=== PATIENT | female | born 1975 | race Caucasian/White ===

== ENCOUNTER 2016-11-15 03:17 | Inpatient (IN) | payer BC ==
[~2016-11-15] VITALS: Ht 154.9 cm; Wt 80.6 kg
[2016-11-15] MEDS ORDERED: SODIUM CHLORIDE 0.9% 1000ML 2,000 ML IV STA (03:30)
[2016-11-15] MEDS ORDERED: ONDANSETRON INJ 2 MG/ML 2 ML VIAL IV STA (03:30)
[2016-11-15 04:03] LABS: BASO % 0.1 %; BASO ABS # 0.01 K/uL (0-0.2); COMPLETE YES; EOS % 0.2 %; HEMATOCRIT 48.9 % (37-47); IG% 0.2 %; LYMPH % 13.7 %; LYMPH ABS # 2.08 K/uL (1.2-3.4); MEAN CELL VOLUME 89.2 fL (80-100); MEAN CORPUSCULAR HEMOGLOBIN 31.2 pg (25-34); MEAN PLATELET VOLUME 10.2 fL (7.4-10.4); MONO % 5.4 %; NEUT % 80.4 %; PLATELET COUNT 324 K/uL (130-400); RED BLOOD COUNT 5.48 M/uL (4.2-5.4); WHITE BLOOD COUNT 15.22 K/uL (4.8-10.8)
--- NOTE | 2016-11-15 04:07 | EMERGENCY ROOM VISIT NOTE ---
History Report prepared by Debra: Courtney Rios Under the Supervision of: Dr. Niurka Dickerson M.D. First contact with patient: 03:25 Chief Complaint: VOMITING Stated Complaint: ABDOMINAL PAIN, VOMITING History of Present Illness The patient is a 41 year old female who presents to the Emergency Room with complaints of intermittent vomiting since late yesterday morning. She notes mid upper abdominal pain that started with her nausea and vomiting. Her pain has worsened, and she rates her current pain as a 9/10 in severity. She describes her pain as sharp and stabbing. The patient has a history of a cholecystectomy and appendectomy. She denies any history of pancreatitis. She denies chest pain or shortness of breath. She did not eat anything unusual. Source of History: patient, spouse/significant other Onset: late yesterday morning Position: abdomen Symptom Intensity: 9/10 Quality: sharp, stabbing Timing: intermittent, worsening Associated Symptoms: + abdominal pain, + nausea, No SOB, No chest pain Review of Systems See HPI for pertinent positives & negatives. A total of 10 systems reviewed and were otherwise negative. Past Medical & Surgical Surgical Problems: (1) History of cholecystectomy (2) Hx of appendectomy Family History No pertinent history stated. Social History Smoking Status: Never Smoker Alcohol Use: none Marital Status: Housing Status: lives with family Occupation Status: employed Current/Historical Medications No Active Prescriptions or Reported Meds Allergies Coded Allergies: Penicillins (Verified Allergy, Unknown, AMOXICILLIN, 11/15/16) Physical Exam Vital Signs Date Time Temp Pulse Resp B/P Pulse Ox O2 Delivery O2 Flow Rate FiO2 11/15/16 05:45 64 18 171/107 99 Room Air 11/15/16 04:44 73 20 176/110 100 Room Air 11/15/16 03:21 36.8 75 20 174/110 98 Room Air Physical Exam Vital signs reviewed. General: Well-appearing 41 year old female, dry heaving. HEENT: No scleral icterus, PERRLA, neck supple. Atraumatic. Cardiovascular: Regular rate and rhythm, no extra sounds. Pulmonary: Clear to auscultation bilaterally, normal work of breathing. Abdomen: Soft, tender to the epigastric region, nondistended, positive bowel sounds. Musculoskeletal: Atraumatic, no peripheral edema. Neurologic: Patient awake alert and oriented x 3, full strength in all 4 extremities. Cranial nerves 2 through 12 grossly intact. Skin: Warm, dry, no rash Medical Decision & Procedures ER Provider Diagnostic Interpretation: Chest x-ray as interpreted by myself is clear with no infiltrate or failure. Abdominal x-ray as interpreted by myself reveals no air-fluid levels or free air. Radiology results as stated below per my review and radiologist interpretation: CT ABDOMEN & PELVIS: Comparison: October 07, 2010. Moderately dilated predominantly right abdominal small bowel loops with air- fluid levels, consistent with the obstructive process. Trace amount of free fluid. No free air or fluid collections. Gallbladder is not visualized. There is mild intrahepatic and extrahepatic duct dilatation. No pancreatitis. Subcentimeter hypodense lesions in the kidneys are stable since prior. Normal caliber abdominal aorta. Diverticulosis without evidence of diverticulitis. The appendix is not definitively seen. No free air or fluid collections. Mildly asymmetrical fullness of the right renal pelvis and right ureter, similar to prior exam and may be secondary to previously visualized right-sided ureterocele, not well seen in absence of delayed phase images. Punctate nonobstructive right renal stones. No evidence of obstructive ureteral or bladder stones on this contrast-enhanced exam. Intrauterine device appears well seated. Small cysts/follicles in the ovaries. Radiologist: Bettie Rojo MD Laboratory Results 11/15/16 03:47 Red Blood Count 5.48, Mean Corpuscular Volume 89.2, Mean Corpuscular Hemoglobin 31.2, Mean Corpuscular Hemoglobin Concent 35.0, Mean Platelet Volume 10.2, Neutrophils (%) (Auto) 80.4, Lymphocytes (%) (Auto) 13.7, Monocytes (%) (Auto) 5.4, Eosinophils (%) (Auto) 0.2, Basophils (%) (Auto) 0.1, Neutrophils # (Auto) 12.25, Lymphocytes # (Auto) 2.08, Monocytes # (Auto) 0.82, Eosinophils # (Auto) 0.03, Basophils # (Auto) 0.01 11/15/16 03:47 Test 11/15/16 03:47 White Blood Count 15.22 K/uL (4.8-10.8) Red Blood Count 5.48 M/uL (4.2-5.4) Hemoglobin 17.1 g/dL (12.0-16.0) Hematocrit 48.9 % (37-47) Mean Corpuscular Volume 89.2 fL (80-100) Mean Corpuscular Hemoglobin 31.2 pg (25-34) Mean Corpuscular Hemoglobin Concent 35.0 g/dl (32-36) Platelet Count 324 K/uL (130-400) Mean Platelet Volume 10.2 fL (7.4-10.4) Neutrophils (%) (Auto) 80.4 % Lymphocytes (%) (Auto) 13.7 % Monocytes (%) (Auto) 5.4 % Eosinophils (%) (Auto) 0.2 % Basophils (%) (Auto) 0.1 % Neutrophils # (Auto) 12.25 K/uL (1.4-6.5) Lymphocytes # (Auto) 2.08 K/uL (1.2-3.4) Monocytes # (Auto) 0.82 K/uL (0.11-0.59) Eosinophils # (Auto) 0.03 K/uL (0-0.5) Basophils # (Auto) 0.01 K/uL (0-0.2) RDW Standard Deviation 43.2 fL (36.4-46.3) RDW Coefficient of Variation 13.1 % (11.5-14.5) Immature Granulocyte % (Auto) 0.2 % Immature Granulocyte # (Auto) 0.03 K/uL (0.00-0.02) Anion Gap 8.0 mmol/L (3-11) Est Creatinine Clear Calc Drug Dose 77.3 ml/min Estimated GFR () 89.1 Estimated GFR (Non- 76.9 BUN/Creatinine Ratio 13.1 (10-20) Calcium Level 9.4 mg/dl (8.5-10.1) Magnesium Level 2.5 mg/dl (1.8-2.4) Total Bilirubin 0.9 mg/dl (0.2-1) Direct Bilirubin 0.2 mg/dl (0-0.2) Aspartate Amino Transf (AST/SGOT) 9 U/L (15-37) Alanine Aminotransferase (ALT/SGPT) 22 U/L (12-78) Alkaline Phosphatase 46 U/L (45-117) Total Protein 8.8 gm/dl (6.4-8.2) Albumin 4.6 gm/dl (3.4-5.0) Lipase 138 U/L (73-393) Laboratory results per my review. Medications Administered Medications (Trade) Dose Ordered Sig/Tank Route Start Time Stop Time Status Last Admin Dose Admin Sodium Chloride (Nss 1000ml) 2,000 ml @ 999 mls/hr Q2H1M STAT IV 11/15/16 03:30 11/15/16 05:30 DC 11/15/16 03:45 999 MLS/HR Ondansetron HCl (Zofran Inj) 4 mg NOW STAT IV 11/15/16 03:30 11/15/16 03:32 DC 11/15/16 03:45 4 MG Hydromorphone HCl (Dilaudid Inj) 1 mg NOW STAT IV 11/15/16 04:35 11/15/16 04:37 DC 11/15/16 04:43 1 MG Hydromorphone HCl (Dilaudid Inj) 1 mg NOW STAT IV 11/15/16 05:46 11/15/16 05:47 DC 11/15/16 06:24 1 MG ED Course 0330: Past medical records reviewed. The patient was evaluated in room B2. A complete history and physical examination was performed. 0330: Zofran 4 mg IV, NSS 2000 ml @ 999 mls/hr IV 0435: Dilaudid 1 mg IV 0448: I reassessed the patient at this time. She has had some improvement with the medications. 0544: I reassessed the patient at this time. She is feeling better and resting comfortably. I discussed the results and treatment plan with the patient. I answered all pertaining questions that she had. She expressed understanding and verbalized agreement. 0545: NSS 1000 ml @ 125 mls/hr IV 0546: Dilaudid 1 mg IV 0557: At this time I spoke with Dr. Garcia. We discussed the patient's case. The patient will be evaluated by the [facility] for further management. 0603: At this time I spoke with Dr. Pritchett of general surgery. We discussed the patient's results and treatment plan. Medical Decision Differential diagnosis: Etiologies such as gastroenteritis, food borne illness, infections, appendicitis , diverticulitis, inflammatory bowel disease, obstruction, GI bleed, biliary pathology, as well as others were entertained. This patient was evaluated and appeared to be in some discomfort. IV access was obtained and laboratory work was drawn. Patient is tender to the epigastric area on physical exam. Abdominal x-ray series is fairly unrevealing to my interpretation. There is no free air or air-fluid. Patient's laboratory work reveals a leukocytosis. She was feeling improved after 2 doses of IV Dilaudid and IV hydration. CT scan abdomen and pelvis was performed and is consistent with SBO. Case was discussed with general surgery, Dr. Pritchett and the hospitalist service, Dr. Roca was consulted. She was admitted for further management. The patient was aware of the plan and agrees. Consults Time Called: 0548 Consulting Physician: Dr. Garcia Returned Call: [phone] At this time I spoke with Dr. Garcia. We discussed the patient's case. The patient will be evaluated by the [facility] for further management. Additional Consults: Time Called: 0583 Consulted Physician: Dr. Pritchett Returned Call: [phone] Additional Comments: At this time I spoke with Dr. Pritchett of general surgery. We discussed the patient's results and treatment plan. Impression Primary Impression: SBO (small bowel obstruction) Scribe Attestation The scribe's documentation has been prepared under my direction and personally reviewed by me in its entirety. I confirm that the note above accurately reflects all work, treatment, procedures, and medical decision making performed by me. Departure Information Dispostion Being Evaluated By Hospitalist Prescriptions No Active Prescriptions or Reported Meds Referrals Vito Ramos M.D. (PCP) Patient Instructions My [facility]
[2016-11-15 04:21] LABS: CREATININE 0.93 mg/dl (0.60-1.20)
[2016-11-15 04:22] LABS: BUN/CREATININE RATIO 13.1 (10-20); CALCIUM 9.4 mg/dl (8.5-10.1); MAGNESIUM 2.5 mg/dl (1.8-2.4); POTASSIUM 3.9 mmol/L (3.5-5.1)
[2016-11-15] MEDS ORDERED: HYDROmorphone INJ 1 MG/ML SYR IV STA ×2 (04:35→05:46)
[2016-11-15] MEDS ORDERED: OPTIRAY 320 IV PRN (04:45)
[2016-11-15] MEDS ORDERED: SODIUM CHLORIDE 0.9% 1000ML 1,000 ML IV STA (05:45)
[2016-11-15] MEDS ORDERED: ONDANSETRON INJ 2 MG/ML 2 ML VIAL IV PRN (06:30)
[2016-11-15] MEDS ORDERED: MoRPHine SULFATE 4 MG/ML 1 ML CARP\\VIAL IV PRN (06:30)
[2016-11-15] MEDS ORDERED: MoRPHine SULFATE 2 MG/ML CARP IV PRN (06:30)
[2016-11-15] MEDS ORDERED: KETOROLAC TROMETHAMINE 30 MG/ML VIAL IV PRN (06:30)
--- NOTE | 2016-11-15 06:54 | History and Physical ---
History & Physical Date & Time of Service: November 15, 2016 at 06:46 Chief Complaint: Abdominal Pain, Vomiting Primary Care Physician: Vito Ramos M.D. History of Present Illness Source: patient, spouse The patient is a 41-year-old female who presents emergency department with complaint of progressively worsening frequency and intensity of abdominal pain and vomiting since early in the morning the day prior to arrival. She has history of an appendectomy and a complicated cholecystectomy which she had bile duct injury and repeat surgery approximately 20 years ago. She reports that she 's had 3 children, and this pain is significantly worse than any of her deliveries. She has no blood in stool or blood in urine. Past Medical/Surgical History Surgical Problems: (1) History of cholecystectomy Status: Resolved (2) Hx of appendectomy Status: Resolved Social History Smoking Status: Never Smoker Smokeless Tobacco Use: No Alcohol Use: none Drug Use: none Marital Status: Housing status: lives with family Occupational Status: employed Immunizations History of Tetanus Vaccine?: UNKNOWN History of Pneumococcal: No History of Hepatitis B Vaccine: Unknown Multi-Drug Resistant Organisms History of MDRO: No Allergies Coded Allergies: Penicillins (Verified Allergy, Unknown, AMOXICILLIN, 11/15/16) Home Medications No Active Prescriptions or Reported Meds Review of Systems Constitutional: No chills, No fatigue, No fever, No problem reported, No sweats , No weakness, No weight loss Eyes: No diplopia, No discharge, No eye pain, No problem reported, No redness, No worsening of vision ENT: No dental problems, No hearing loss, No nasal symptoms, No problem reported, No sore throat, No tinnitus, No trouble swallowing, No unusual epistaxis Respiratory: No cough, No dyspnea at rest, No dyspnea on exertion, No hemoptysis, No problem reported, No shortness of breath, No sputum, No wheezing Cardiovascular: No PND, No chest pain, No claudication, No edema, No orthopnea , No palpitations, No problem reported Abdomen: + nausea, + pain, + vomiting, No GI bleeding, No constipation, No diarrhea Musculoskeletal: No calf pain, No joint pain, No muscle pain, No problem reported, No swelling Genitourinary - Female: No dysmenorrhea, No dysuria, No hematuria, No menorrhagia, No metrorrhagia, No , No problem reported, No rash, No urinary frequency, No urinary incontinence, No urinary retention, No urinary urgency, No vaginal bleeding, No vaginal discharge, No vaginal itching, No vulvodynia Neurologic: No balance problems, No memory loss, No numbness/tingling, No paralysis, No problem reported, No vertigo, No weakness Psychiatric: No anhedonism, No anxiety, No depression symptoms, No insomnia, No problem reported, No substance abuse Endocrine: No excessive thirst, No excessive urination, No fatigue, No problem reported Hematologic / Lymphatic: No abnormal bleeding/bruising, No clotting problems, No night sweats, No problem reported, No swollen lymph nodes Integumentary: No bleeding, No color change, No itch, No new/changing skin lesions, No problem reported, No rash Allergic / Immunologic: No environmental allergies, No food allergies, No frequent infections, No hives, No pet sensitivities, No poor healing, No problem reported, No prolonged convalescence, No seasonal allergies Physical Exam Vital Signs Date Time Temp Pulse Resp B/P Pulse Ox O2 Delivery O2 Flow Rate FiO2 11/15/16 06:30 68 16 180/121 95 Room Air 11/15/16 05:45 64 18 171/107 99 Room Air 11/15/16 04:44 73 20 176/110 100 Room Air 11/15/16 03:21 36.8 75 20 174/110 98 Room Air General Appearance: WD/WN, + mild distress (secondary to abdominal pain) Head: normocephalic, atraumatic Eyes: normal inspection, PERRL, EOMI, sclerae normal ENT: hearing grossly normal, + pertinent finding (mucous membranes very dry) Neck: supple, no adenopathy, thyroid normal, no JVD, no carotid bruits, trachea midline Respiratory/Chest: chest non-tender, lungs clear, normal breath sounds, no respiratory distress, no accessory muscle use Cardiovascular: regular rate, rhythm, no edema, no gallop, no JVD, no murmur, normal peripheral pulses Abdomen/GI: soft, no organomegaly, + tenderness (generalized), + abnormal bowel sounds (decreased bowel sounds) Back: normal inspection, no CVA tenderness, no muscle spasm, normal range of motion Extremities/Musculoskelatal: normal inspection, no calf tenderness, normal capillary refill, no pedal edema, normal range of motion, non-tender 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, no motor/sensory deficits, alert, normal mood/affect, normal reflexes, oriented x 3 Skin: normal color, warm/dry, no rash Lymphatic: no adenopathy Diagnostics Laboratory Results Results Past 24 Hours Test 11/15/16 03:47 11/15/16 06:39 Range/Units White Blood Count 15.22 4.8-10.8 K/uL Red Blood Count 5.48 4.2-5.4 M/uL Hemoglobin 17.1 12.0-16.0 g/dL Hematocrit 48.9 37-47 % Mean Corpuscular Volume 89.2 80-100 fL Mean Corpuscular Hemoglobin 31.2 25-34 pg Mean Corpuscular Hemoglobin Concent 35.0 32-36 g/dl Platelet Count 324 130-400 K/uL Mean Platelet Volume 10.2 7.4-10.4 fL Neutrophils (%) (Auto) 80.4 % Lymphocytes (%) (Auto) 13.7 % Monocytes (%) (Auto) 5.4 % Eosinophils (%) (Auto) 0.2 % Basophils (%) (Auto) 0.1 % Neutrophils # (Auto) 12.25 1.4-6.5 K/uL Lymphocytes # (Auto) 2.08 1.2-3.4 K/uL Monocytes # (Auto) 0.82 0.11-0.59 K/uL Eosinophils # (Auto) 0.03 0-0.5 K/uL Basophils # (Auto) 0.01 0-0.2 K/uL RDW Standard Deviation 43.2 36.4-46.3 fL RDW Coefficient of Variation 13.1 11.5-14.5 % Immature Granulocyte % (Auto) 0.2 % Immature Granulocyte # (Auto) 0.03 0.00-0.02 K/uL Sodium Level 139 136-145 mmol/L Potassium Level 3.9 3.5-5.1 mmol/L Chloride Level 105 98-107 mmol/L Carbon Dioxide Level 26 21-32 mmol/L Anion Gap 8.0 3-11 mmol/L Blood Urea Nitrogen 12 7-18 mg/dl Creatinine 0.93 0.60-1.20 mg/dl Est Creatinine Clear Calc Drug Dose 77.3 ml/min Estimated GFR () 89.1 Estimated GFR (Non- 76.9 BUN/Creatinine Ratio 13.1 10-20 Random Glucose 118 70-99 mg/dl Calcium Level 9.4 8.5-10.1 mg/dl Magnesium Level 2.5 1.8-2.4 mg/dl Total Bilirubin 0.9 0.2-1 mg/dl Direct Bilirubin 0.2 0-0.2 mg/dl Aspartate Amino Transf (AST/SGOT) 9 15-37 U/L Alanine Aminotransferase (ALT/SGPT) 22 12-78 U/L Alkaline Phosphatase 46 45-117 U/L Total Protein 8.8 6.4-8.2 gm/dl Albumin 4.6 3.4-5.0 gm/dl Lipase 138 73-393 U/L Impression Assessment and Plan Small bowel obstruction with intractable abdominal pain--patient admitted to the medical surgical floor. She'll be kept nothing by mouth except ice chips. Will place on normal saline and potassium chloride 20 mEq 100 mils per hour, Protonix 40 mg IV daily, Zofran 4 mg IV every 6 hours when necessary, Toradol 30 mg IV every 6 hours when necessary, Cipro 40 mg IV every 12 hours and Flagyl 500 mg IV every 8 hours. Level of Care Med/Surg Advanced Directives Existing Advance Directive: No Existing Living Will: No Existing Power of Shactor: No Resuscitation Status FULL RESUSCITATION VTE Prophylaxis VTE Risk Assessment Done? Y/N: Yes Risk Level: Moderate Given or contraindicated: SCD's Social Service Consult None Apply
[2016-11-15 07:09] LABS: URINE APPEARANCE CLEAR (CLEAR); URINE BILIRUBIN NEG (NEG); URINE COLOR YELLOW; URINE NITRITE NEG (NEG); URINE PH 6.5 (4.5-7.5); URINE SPECIFIC GRAVITY 1.045 (1.000-1.030); UROBILINOGEN NEG (NEG); ZZUR CULT IF INDIC CLEAN CATCH NO
[2016-11-15 07:14] LABS: MANUAL MICROSCOPIC REQUIRED? NO; REVIEW REQ? NO
--- NOTE | 2016-11-15 07:46 | DIAGNOSTIC IMAGING REPORT ---
ABDOMEN AND PELVIS CT WITH IV CONTRAST CT DOSE: 769.97 mGy.cm HISTORY: epigastric pain, vomiting TECHNIQUE: Multiaxial CT images of the abdomen and pelvis were performed following the use of intravenous contrast. COMPARISON STUDY: Abdomen and pelvis CT 10/07/2010. FINDINGS: Right-sided nephrolithiasis. No hydronephrosis. Stable mild fullness within the mid to distal right ureter with an associated small right ureterocele. Stable subcentimeter bilateral renal hypodense lesions. Therefore, these favor cysts. An intrauterine device appears to be in good position. The ovaries are unremarkable. No bladder wall thickening. The lung bases are clear. The gallbladder appears surgically absent. The liver, pancreas, spleen, and adrenal glands are unremarkable. Colonic diverticulosis. The majority of the colon is decompressed. Multiple distended and fluid-filled loops of small bowel seen within the right side of the abdomen. These measure up to 3.3 cm in diameter. There is mild edema surrounding these loops of small bowel. Mild intra and extra hepatic bile duct dilatation. IMPRESSION: 1. Mildly distended fluid-filled loops of small bowel within the right side the abdomen. The colon is decompressed. Therefore, this is consistent with a small bowel obstruction. There is trace fluid surrounding these loops of bowel. The exact transition point is difficult to define. Although considered less likely the clustered loops of distended bowel at the right side of the abdomen raise the possibility of an internal hernia. Surgical consultation is recommended. 2. Right-sided nephrolithiasis. No change in the fullness within the mid to distal right ureter with associated small right ureterocele. 3. Mild intrahepatic and extrahepatic bile duct dilatation. This may be due to the patient's postcholecystectomy state. This is similar to the prior study. Electronically signed by: Jeremy Braxton M.D. 11/15/2016 7:45 AM Dictated Date/Time: 11/15/2016 7:37 AM
--- NOTE | 2016-11-15 08:09 | DIAGNOSTIC IMAGING REPORT ---
CHEST AND ABDOMEN 2 VIEWS HISTORY: vomiting. Generalized abdominal pain. COMPARISON: Abdomen and pelvis CT 10/07/2010. FINDINGS: The lungs remain clear. The heart is borderline enlarged and may be accentuated by the low lung volumes. No pneumoperitoneum. No pneumatosis. An intrauterine device is seen within the mid pelvis. Relative paucity of small bowel gas which limits evaluation for a small bowel obstruction. No definite dilated loops of small bowel identified at this time. Right-sided nephrolithiasis. IMPRESSION: 1. Right-sided nephrolithiasis. 2. Relative paucity of small bowel gas which limits evaluation for a small bowel obstruction. No definite dilated loops of small bowel identified at this time. Electronically signed by: Jeremy Braxton M.D. 11/15/2016 8:08 AM Dictated Date/Time: 11/15/2016 8:06 AM
[2016-11-15 08:30] VITALS: BP 163/97; PULSE 70; TEMP 36.5; Ht 154.9 cm; Wt 80.6 kg
[2016-11-15] MEDS: METRONIDAZOLE / NSS 500 MG in PREMIXED NSS 100 ML IV SCH ×2 (09:38→17:13)
[2016-11-15] MEDS: NSS + 20MEQ KCL 1000ML 1,000 ML IV SCH ×2 (09:39→19:32)
[2016-11-15] MEDS ORDERED: HydrALAZINE HCL 20 MG/ML VIAL IV. PRN (11:00)
--- NOTE | 2016-11-15 11:01 | Surgery Consultation ---
Consultation Date of Consultation: November 15, 2016. Attending Physician: Roberth Garcia M.D. History of Present Illness pt with a 2 day history of intermittent epigastric pain followed by emesis. repeated about 3-4 times. states she has never had this issue before. did have extensive gallbladder/bile duct surgery in distant past. last bm was yesterday- loose. feeling ok currently. Past Medical/Surgical History Medical Problems: (1) SBO (small bowel obstruction) Status: Acute Social History Smoking Status: Never Smoker Smokeless Tobacco Use: No Alcohol Use: none Drug Use: none Marital Status: Occupation Status: employed Allergies Coded Allergies: Penicillins (Verified Allergy, Unknown, AMOXICILLIN, 11/15/16) Home Medications No Active Prescriptions or Reported Meds Current Inpatient Medications Current Inpatient Medications Medications (Trade) Dose Ordered Sig/Tank Route Start Time Stop Time Status Last Admin Dose Admin Ioversol (Optiray 320) 125 ml UD PRN IV 11/15/16 04:45 11/19/16 04:44 Ondansetron HCl 4 mg 4 mg Q6H PRN IV 11/15/16 06:30 12/15/16 06:29 Acetaminophen 100 ml @ 400 mls/hr Q8H PRN IV 11/15/16 06:30 12/15/16 06:29 Pantoprazole Sodium 40 mg/ Syringe 10 ml @ 5 mls/min DAILY@11 IV 11/15/16 11:00 12/15/16 10:59 Potassium Chloride/Sodium Chloride (Nss + 20meq KCl 1000ml) 1,000 ml @ 100 mls/hr Q10H IV 11/15/16 09:00 12/15/16 06:17 11/15/16 09:39 100 MLS/HR Morphine Sulfate (MoRPHine SULFATE INJ) 2 mg Q2H PRN IV 11/15/16 06:30 11/29/16 06:29 Morphine Sulfate (MoRPHine SULFATE INJ) 4 mg Q2H PRN IV 11/15/16 06:30 11/29/16 06:29 Ketorolac Tromethamine 30 mg 30 mg Q6H PRN IV 11/15/16 06:30 11/20/16 06:29 Ciprofloxacin/ Dextrose 400 mg/ Prmx 200 ml @ 100 mls/hr Q12@1000,2200 IV 11/15/16 10:00 11/25/16 09:59 Metronidazole/Prmx (Flagyl / Nss/ Premixed Nss) 100 ml @ 100 mls/hr Q8H IV 11/15/16 09:00 11/25/16 08:59 11/15/16 09:38 100 MLS/HR Hydralazine HCl (HydrALAZINE INJ) 10 mg Q8 PRN IV. 11/15/16 11:00 12/15/16 10:59 UNV Review of Systems Abdomen: + nausea, + pain, + vomiting Physical Exam Date Time Temp Pulse Resp B/P Pulse Ox O2 Delivery O2 Flow Rate FiO2 11/15/16 08:30 36.5 70 16 163/97 Room Air 11/15/16 08:18 76 18 147/104 97 11/15/16 07:00 73 18 164/112 99 Room Air 11/15/16 06:30 68 16 180/121 95 Room Air 11/15/16 05:45 64 18 171/107 99 Room Air 11/15/16 04:44 73 20 176/110 100 Room Air 11/15/16 03:21 36.8 75 20 174/110 98 Room Air General Appearance: no apparent distress Head: normocephalic, atraumatic Eyes: normal inspection, EOMI ENT: hearing grossly normal Neck: supple, no JVD Respiratory/Chest: no respiratory distress, no accessory muscle use Cardiovascular: regular rate, rhythm Abdomen/GI: soft, + pertinent finding (mild epigastric ttp. minimal distension ) Extremities/Musculoskelatal: no pedal edema Skin: normal color, warm/dry Laboratory Results Last 24 Hours Test 11/15/16 03:47 11/15/16 06:39 White Blood Count 15.22 K/uL Red Blood Count 5.48 M/uL Hemoglobin 17.1 g/dL Hematocrit 48.9 % Mean Corpuscular Volume 89.2 fL Mean Corpuscular Hemoglobin 31.2 pg Mean Corpuscular Hemoglobin Concent 35.0 g/dl Platelet Count 324 K/uL Mean Platelet Volume 10.2 fL Neutrophils (%) (Auto) 80.4 % Lymphocytes (%) (Auto) 13.7 % Monocytes (%) (Auto) 5.4 % Eosinophils (%) (Auto) 0.2 % Basophils (%) (Auto) 0.1 % Neutrophils # (Auto) 12.25 K/uL Lymphocytes # (Auto) 2.08 K/uL Monocytes # (Auto) 0.82 K/uL Eosinophils # (Auto) 0.03 K/uL Basophils # (Auto) 0.01 K/uL RDW Standard Deviation 43.2 fL RDW Coefficient of Variation 13.1 % Immature Granulocyte % (Auto) 0.2 % Immature Granulocyte # (Auto) 0.03 K/uL Sodium Level 139 mmol/L Potassium Level 3.9 mmol/L Chloride Level 105 mmol/L Carbon Dioxide Level 26 mmol/L Anion Gap 8.0 mmol/L Blood Urea Nitrogen 12 mg/dl Creatinine 0.93 mg/dl Est Creatinine Clear Calc Drug Dose 77.3 ml/min Estimated GFR () 89.1 Estimated GFR (Non- 76.9 BUN/Creatinine Ratio 13.1 Random Glucose 118 mg/dl Calcium Level 9.4 mg/dl Magnesium Level 2.5 mg/dl Total Bilirubin 0.9 mg/dl Direct Bilirubin 0.2 mg/dl Aspartate Amino Transf (AST/SGOT) 9 U/L Alanine Aminotransferase (ALT/SGPT) 22 U/L Alkaline Phosphatase 46 U/L Total Protein 8.8 gm/dl Albumin 4.6 gm/dl Lipase 138 U/L Urine Color YELLOW Urine Appearance CLEAR Urine pH 6.5 Urine Specific [place] 1.045 Urine Protein NEG Urine Glucose (UA) NEG Urine Ketones 1+ Urine Occult Blood 1+ Urine Nitrite NEG Urine Bilirubin NEG Urine Urobilinogen NEG Urine Leukocyte Esterase NEG Urine WBC (Auto) 1-5 /hpf Urine RBC (Auto) 0-4 /hpf Urine Hyaline Casts (Auto) 1-5 /lpf Urine Epithelial Cells (Auto) 10-20 /lpf Urine Bacteria (Auto) NEG Assessment & Plan PSBO conservative tx for now. no more n/v so can hold NGT for now IVF repeat xray tomorrow.
[2016-11-15] MEDS: CIPROFLOXACIN / D5W 400 MG in PREMIXED IN D5W 200 ML IV SCH ×2 (11:12→22:18)
[2016-11-15] MEDS: PANTOprazole INJ 40 MG in SYRINGE 0 ML IV SCH (11:13)
[2016-11-15 15:33] VITALS: BP 128/84; PULSE 74; TEMP 37; O2SAT 97
[2016-11-15 18:12] VITALS: O2SAT 97
[2016-11-15 22:55] VITALS: BP 138/90; PULSE 74; TEMP 36.9; O2SAT 95
[2016-11-16] MEDS: METRONIDAZOLE / NSS 500 MG in PREMIXED NSS 100 ML IV SCH ×3 (01:04→16:25)
[2016-11-16] MEDS: NSS + 20MEQ KCL 1000ML 1,000 ML IV SCH ×2 (04:45→14:39)
[2016-11-16] MEDS: ACETAMINOPHEN IV 100 ML IV PRN ×2 (05:24→21:58)
[2016-11-16 06:56] LABS: BASO % 0.2 %; BASO ABS # 0.01 K/uL (0-0.2); COMPLETE YES; EOS % 1.2 %; HEMATOCRIT 38.6 % (37-47); IG% 0.3 %; LYMPH ABS # 2.08 K/uL (1.2-3.4); MEAN CELL VOLUME 90.6 fL (80-100); MEAN CORPUSCULAR HEMOGLOBIN 29.6 pg (25-34); MEAN CORPUSCULAR HGB CONC 32.6 g/dl (32-36); MEAN PLATELET VOLUME 10.1 fL (7.4-10.4); MONO % 6.5 %; NEUT % 59.8 %; PLATELET COUNT 212 K/uL (130-400); RED BLOOD COUNT 4.26 M/uL (4.2-5.4); WHITE BLOOD COUNT 6.51 K/uL (4.8-10.8)
[2016-11-16 07:18] VITALS: BP 121/79; PULSE 65; TEMP 36.9; O2SAT 97
[2016-11-16 07:36] LABS: BUN/CREATININE RATIO 9.9 (10-20); CALCIUM 7.7 mg/dl (8.5-10.1); CREATININE 0.59 mg/dl (0.60-1.20); MAGNESIUM 2.2 mg/dl (1.8-2.4); POTASSIUM 3.5 mmol/L (3.5-5.1)
--- NOTE | 2016-11-16 09:15 | DIAGNOSTIC IMAGING REPORT ---
KUB CLINICAL HISTORY: Small bowel obstruction. COMPARISON STUDY: CT of the abdomen and pelvis November 15, 2016. FINDINGS: An intrauterine device is incidentally noted. Several loops of mildly dilated small bowel within the right mid abdomen are noted. IMPRESSION: Findings suggestive of a persistent small bowel obstruction. No change in mild small bowel dilatation. Electronically signed by: Kobi Beckford M.D. 11/16/2016 9:14 AM Dictated Date/Time: 11/16/2016 9:12 AM
[2016-11-16] MEDS: CIPROFLOXACIN / D5W 400 MG in PREMIXED IN D5W 200 ML IV SCH ×2 (10:15→22:30)
[2016-11-16] MEDS: PANTOprazole INJ 40 MG in SYRINGE 0 ML IV SCH (11:07)
[2016-11-16 15:10] VITALS: BP 131/92; PULSE 81; TEMP 36.8; O2SAT 95
--- NOTE | 2016-11-16 15:48 | Surgery Progress Note ---
Surgery Progress Note Date of Service November 16, 2016. Subjective feeling much better. no pain. no n/v. feels hungry. no bm. +flatus Objective Vital Signs: Date Time Temp Pulse Resp B/P Pulse Ox O2 Delivery O2 Flow Rate FiO2 11/16/16 15:10 36.8 81 18 131/92 95 Room Air 11/16/16 07:45 Room Air 11/16/16 07:18 36.9 65 16 121/79 97 Room Air 11/16/16 00:00 Room Air 11/15/16 22:55 36.9 74 18 138/90 95 Room Air 11/15/16 18:12 97 Room Air General Appearance: no apparent distress Head: normocephalic, atraumatic Neck: supple Respiratory/Chest: no respiratory distress, no accessory muscle use Abdomen: non tender, non distended, soft Extremities: non-tender, normal inspection Laboratory Results: Results Past 24 Hours Test 11/16/16 06:05 Range/Units White Blood Count 6.51 4.8-10.8 K/uL Red Blood Count 4.26 4.2-5.4 M/uL Hemoglobin 12.6 12.0-16.0 g/dL Hematocrit 38.6 37-47 % Mean Corpuscular Volume 90.6 80-100 fL Mean Corpuscular Hemoglobin 29.6 25-34 pg Mean Corpuscular Hemoglobin Concent 32.6 32-36 g/dl Platelet Count 212 130-400 K/uL Mean Platelet Volume 10.1 7.4-10.4 fL Neutrophils (%) (Auto) 59.8 % Lymphocytes (%) (Auto) 32.0 % Monocytes (%) (Auto) 6.5 % Eosinophils (%) (Auto) 1.2 % Basophils (%) (Auto) 0.2 % Neutrophils # (Auto) 3.90 1.4-6.5 K/uL Lymphocytes # (Auto) 2.08 1.2-3.4 K/uL Monocytes # (Auto) 0.42 0.11-0.59 K/uL Eosinophils # (Auto) 0.08 0-0.5 K/uL Basophils # (Auto) 0.01 0-0.2 K/uL RDW Standard Deviation 43.7 36.4-46.3 fL RDW Coefficient of Variation 13.2 11.5-14.5 % Immature Granulocyte % (Auto) 0.3 % Immature Granulocyte # (Auto) 0.02 0.00-0.02 K/uL Sodium Level 140 136-145 mmol/L Potassium Level 3.5 3.5-5.1 mmol/L Chloride Level 108 98-107 mmol/L Carbon Dioxide Level 24 21-32 mmol/L Anion Gap 8.0 3-11 mmol/L Blood Urea Nitrogen 6 7-18 mg/dl Creatinine 0.59 0.60-1.20 mg/dl Est Creatinine Clear Calc Drug Dose 121.9 ml/min Estimated GFR () 132.9 Estimated GFR (Non- 114.6 BUN/Creatinine Ratio 9.9 10-20 Random Glucose 77 70-99 mg/dl Calcium Level 7.7 8.5-10.1 mg/dl Magnesium Level 2.2 1.8-2.4 mg/dl Assessment & Plan pSBO symptoms have completely resolved xray still showing some dilated small bowel will go ahead and give trial of clears wbc down to 6000 ( 15,000)
--- NOTE | 2016-11-16 21:41 | Hospitalist Progress Note ---
Hospitalist Progress Note Date of Service November 16, 2016. Subjective Pt evaluation today including: conversation w/ patient, conversation w/ makeup sales consultant Doing very well, passing flatus, feels hungry, no abdominal pain at all, no nausea or vomiting. Discussed case with general surgery and ready to advance diet to clears All Other Systems: Reviewed and Negative Objective Vital Signs Date Time Temp Pulse Resp B/P Pulse Ox O2 Delivery O2 Flow Rate FiO2 11/16/16 16:15 Room Air 11/16/16 15:10 36.8 81 18 131/92 95 Room Air 11/16/16 07:45 Room Air 11/16/16 07:18 36.9 65 16 121/79 97 Room Air 11/16/16 00:00 Room Air 11/15/16 22:55 36.9 74 18 138/90 95 Room Air Physical Exam General Appearance: WD/WN, no apparent distress Eyes: normal inspection, sclerae normal ENT: hearing grossly normal Neck: trachea midline Respiratory/Chest: lungs clear, normal breath sounds, no respiratory distress, no accessory muscle use Cardiovascular: regular rate, rhythm, no edema, no gallop, no murmur Abdomen: normal bowel sounds, non tender, soft, no organomegaly, no pulsatile mass Extremities: non-tender, no pedal edema, no calf tenderness Neurologic/Psychiatric: alert, normal mood/affect, oriented x 3 Skin: normal color, warm/dry, no rash Laboratory Results Last 24 Hours Test 11/16/16 06:05 White Blood Count 6.51 K/uL Red Blood Count 4.26 M/uL Hemoglobin 12.6 g/dL Hematocrit 38.6 % Mean Corpuscular Volume 90.6 fL Mean Corpuscular Hemoglobin 29.6 pg Mean Corpuscular Hemoglobin Concent 32.6 g/dl Platelet Count 212 K/uL Mean Platelet Volume 10.1 fL Neutrophils (%) (Auto) 59.8 % Lymphocytes (%) (Auto) 32.0 % Monocytes (%) (Auto) 6.5 % Eosinophils (%) (Auto) 1.2 % Basophils (%) (Auto) 0.2 % Neutrophils # (Auto) 3.90 K/uL Lymphocytes # (Auto) 2.08 K/uL Monocytes # (Auto) 0.42 K/uL Eosinophils # (Auto) 0.08 K/uL Basophils # (Auto) 0.01 K/uL RDW Standard Deviation 43.7 fL RDW Coefficient of Variation 13.2 % Immature Granulocyte % (Auto) 0.3 % Immature Granulocyte # (Auto) 0.02 K/uL Sodium Level 140 mmol/L Potassium Level 3.5 mmol/L Chloride Level 108 mmol/L Carbon Dioxide Level 24 mmol/L Anion Gap 8.0 mmol/L Blood Urea Nitrogen 6 mg/dl Creatinine 0.59 mg/dl Est Creatinine Clear Calc Drug Dose 121.9 ml/min Estimated GFR () 132.9 Estimated GFR (Non- 114.6 BUN/Creatinine Ratio 9.9 Random Glucose 77 mg/dl Calcium Level 7.7 mg/dl Magnesium Level 2.2 mg/dl Assessment and Plan The patient is a 41-year-old female who presents with complaint of progressively worsening frequency and intensity of abdominal pain and vomiting prior to arrival. She has history of an appendectomy and a complicated cholecystectomy which she had bile duct injury and repeat surgery approximately 20 years ago. She reports that she's had 3 children, and this pain is significantly worse than any of her deliveries. She has no blood in stool or blood in urine. She was found to have a small bowel obstruction on x-ray. She had a leukocytosis and was placed on Cipro and Flagyl. Much improved today, passing flatus, leukocytosis resolved, afebrile. -Advance diet to clears -Continue Cipro and Flagyl for now -Appreciate general surgery consultation -Repeat KUB in the morning -Can advance diet to regular in the morning if still doing well and plan for discharge Elevated blood pressure-secondary to pain, now much improved Prophylaxis-SCDs Disposition-hopefully to home tomorrow if tolerating regular diet
[2016-11-16 23:18] VITALS: BP 125/81; PULSE 69; TEMP 37; O2SAT 97
[2016-11-17] MEDS: METRONIDAZOLE / NSS 500 MG in PREMIXED NSS 100 ML IV SCH ×2 (00:56→09:29)
[2016-11-17] MEDS: NSS + 20MEQ KCL 1000ML 1,000 ML IV SCH ×2 (00:57→11:10)
[2016-11-17 07:25] LABS: BASO % 0.4 %; BASO ABS # 0.02 K/uL (0-0.2); COMPLETE YES; EOS % 1.4 %; HEMATOCRIT 40.4 % (37-47); IG% 0.2 %; LYMPH % 32.5 %; MEAN CELL VOLUME 89.8 fL (80-100); MEAN CORPUSCULAR HEMOGLOBIN 30.4 pg (25-34); MEAN CORPUSCULAR HGB CONC 33.9 g/dl (32-36); MONO % 8.7 %; NEUT % 56.8 %; PLATELET COUNT 218 K/uL (130-400); WHITE BLOOD COUNT 5.54 K/uL (4.8-10.8)
--- NOTE | 2016-11-17 07:48 | Surgery Progress Note ---
Surgery Progress Note Date of Service November 17, 2016. Subjective + diet (clears), + feeling well, + flatus, No bowel movement, No nausea Objective Vital Signs: Date Time Temp Pulse Resp B/P Pulse Ox O2 Delivery O2 Flow Rate FiO2 11/16/16 23:35 Room Air 11/16/16 23:18 37.0 69 16 125/81 97 Room Air 11/16/16 16:15 Room Air 11/16/16 15:10 36.8 81 18 131/92 95 Room Air Abdomen: non tender, non distended, soft Laboratory Results: Results Past 24 Hours Test 11/17/16 07:01 Range/Units White Blood Count 5.54 4.8-10.8 K/uL Red Blood Count 4.50 4.2-5.4 M/uL Hemoglobin 13.7 12.0-16.0 g/dL Hematocrit 40.4 37-47 % Mean Corpuscular Volume 89.8 80-100 fL Mean Corpuscular Hemoglobin 30.4 25-34 pg Mean Corpuscular Hemoglobin Concent 33.9 32-36 g/dl Platelet Count 218 130-400 K/uL Mean Platelet Volume 10.0 7.4-10.4 fL Neutrophils (%) (Auto) 56.8 % Lymphocytes (%) (Auto) 32.5 % Monocytes (%) (Auto) 8.7 % Eosinophils (%) (Auto) 1.4 % Basophils (%) (Auto) 0.4 % Neutrophils # (Auto) 3.15 1.4-6.5 K/uL Lymphocytes # (Auto) 1.80 1.2-3.4 K/uL Monocytes # (Auto) 0.48 0.11-0.59 K/uL Eosinophils # (Auto) 0.08 0-0.5 K/uL Basophils # (Auto) 0.02 0-0.2 K/uL RDW Standard Deviation 42.7 36.4-46.3 fL RDW Coefficient of Variation 13.1 11.5-14.5 % Immature Granulocyte % (Auto) 0.2 % Immature Granulocyte # (Auto) 0.01 0.00-0.02 K/uL Assessment & Plan PSBO, improving advance to full liquids consider regular diet later or in AM depending on how she does, she is anxious to go home
[2016-11-17 07:55] VITALS: BP 144/87; PULSE 77; TEMP 36.8; O2SAT 95
[2016-11-17 08:06] LABS: BUN/CREATININE RATIO 6.8 (10-20); CALCIUM 8.1 mg/dl (8.5-10.1); CREATININE 0.57 mg/dl (0.60-1.20); MAGNESIUM 2.3 mg/dl (1.8-2.4); POTASSIUM 3.7 mmol/L (3.5-5.1)
--- NOTE | 2016-11-17 09:15 | DIAGNOSTIC IMAGING REPORT ---
KUB CLINICAL HISTORY: Small bowel obstruction COMPARISON STUDY: 11/16/2016 FINDINGS: There is no pathologic bowel dilatation. There is gas present within nondilated colon. An IUD is visualized within the pelvis. A 2.5 mm left mid abdominal calcification is felt to be inferior to the left kidney. There is a 3 mm calcification projected of the lower pole the right kidney. A small calculus cannot be excluded. IMPRESSION: 1. Probable right-sided nephrolithiasis 2. No evidence of pathologic bowel dilatation. Electronically signed by: Toney Peoples M.D. 11/17/2016 9:14 AM Dictated Date/Time: 11/17/2016 9:13 AM
[2016-11-17] MEDS: CIPROFLOXACIN / D5W 400 MG in PREMIXED IN D5W 200 ML IV SCH (09:29)
[2016-11-17] MEDS: PANTOprazole INJ 40 MG in SYRINGE 0 ML IV SCH (11:11)
--- NOTE | 2016-11-17 12:18 | Discharge Instructions ---
Discharge Instructions Date of Service November 17, 2016. Admission Reason for Admission: SBO Discharge Discharge Diagnosis / Problem: Partial small bowel obstruction Discharge Goals Goal(s): Decrease discomfort, Improve function, Diagnostic testing, Therapeutic intervention Activity Recommendations Activity Limitations: resume your previous activity . Instructions / Follow-Up Instructions / Follow-Up You were admitted to the hospital after presenting with abdominal pain, nausea, and vomiting. A CT scan of your abdomen confirmed a small bowel obstruction, likely secondary to adhesions formed from your previous abdominal surgeries. You were initially kept nothing by mouth and treated with IV fluids and supportive care with nausea and pain control. Your symptoms did resolve, and your diet was advanced to a liquid diet, which you tolerated well. You were finally advanced to a regular diet prior to discharge, which you also tolerated well. Prior to discharge, a follow up x-ray showed resolution of the small bowel obstruction and you were able to have a small bowel movement. You are now medically stable for discharge. Medications: *You do not require any new medications on discharge. You may take over the counter medications as needed if you experience diarrhea or constipation. Follow up: *Follow up with your primary care provider in 1 week regarding your hospital stay. Please seek medical attention if you experience fevers, chills, sweats chest pain , shortness of breath, nausea, vomiting, recurrence of abdominal pain, lightheadedness, loss of consciousness, numbness or tingling. Current Hospital Diet Patient's current hospital diet: Regular Diet Discharge Diet Recommended Diet: Regular Diet Pending Studies Studies pending at discharge: no Medical Emergencies . Who to Call and When: Medical Emergencies: If at any time you feel your situation is an emergency, please call 911 immediately. . Non-Emergent Contact Non-Emergency issues call your: Primary Care Provider . Past History Medical & Surgical History: (1) SBO (small bowel obstruction) . "Provider Documentation" section prepared by Simona Baker. . VTE Core Measure Inpt VTE Proph given/why not?: SCD's
[2016-11-17 13:55] VITALS: BP 144/87; PULSE 77; TEMP 36.8; O2SAT 95
--- NOTE | 2016-11-17 14:47 | Discharge Summary ---
Discharge Summary Date of Service November 17, 2016. (Simona Baker PA-C) Discharge Summary Admission Date: November 15, 2016 at 06:18 Discharge Date: November 17, 2016 Discharge Disposition: Home Principal Diagnosis: Partial small bowel obstruction Immunizations: History of Tetanus Vaccine?: UNKNOWN History of Pneumococcal: No History of Hepatitis B Vaccine: Unknown Consultations: General surgery--Dr. Pritchett (Simona Baker PA-C) Medication Reconciliation Medication Profile: No Active Prescriptions or Reported Meds Referrals At Discharge Follow up Referrals: Family Practice Referral - Within 1 Week with Vito Ramos M.D. Discharge Exam Patient reports feeling well. She states that she has not had any nausea or vomiting in 2 days. She denies any abdominal pain. The patient was able to eat a full liquid diet for breakfast without any issues. She had a regular diet for lunch without any issues and is eager to be discharged home. The patient denies fevers, chills, sweats, chest pain, palpitations, claudication, cough, wheezing, shortness of breath, nausea, vomiting, abdominal pain, dysuria , hematuria, urinary retention, paralysis, weakness, numbness and tingling. Review of Systems: Constitutional: No chills, No fever, No sweats Eyes: No diplopia, No eye pain, No worsening of vision ENT: No hearing loss, No sore throat, No trouble swallowing Respiratory: No cough, No shortness of breath, No wheezing Cardiovascular: No chest pain, No claudication, No palpitations Abdomen: No nausea, No pain, No vomiting Musculoskeletal: No calf pain, No joint pain, No muscle pain Genitourinary - Female: No dysuria, No hematuria, No urinary retention Neurologic: No numbness/tingling, No paralysis, No weakness Integumentary: No color change, No itch, No rash Physical Exam: General Appearance: WD/WN, no apparent distress, + obese Eyes: normal inspection, PERRL, EOMI ENT: normal ENT inspection, hearing grossly normal, pharynx normal Neck: supple, no JVD, trachea midline Respiratory/Chest: lungs clear, normal breath sounds, no respiratory distress Cardiovascular: regular rate, rhythm, no gallop, no murmur Abdomen / GI: normal bowel sounds, non tender, soft Extremities: normal inspection, no calf tenderness, no pedal edema Neurologic/Psychiatric: alert, normal mood/affect, oriented x 3 Skin: normal color, warm/dry, no rash (Simona Baker ., PA-C) Hospital Course 41-year-old female with a history of cholecystectomy with complications which resulted in a repeat surgery, and h/o appendectomy presented with persistent abdominal pain nausea and vomiting. CT of abdomen shows small bowel obstruction. Partial small bowel obstruction--resolved -Admitted to med/surg -IVF NSS + 20 mEq at 100 cc/hr -General surgery consulted, appreciate recs: advance diet to full liquid for breakfast. If tolerating can try regular diet later in the day and possible discharge. -Pt tolerated full liquid breakfast and regular diet lunch w/o N/V or pain -D/C cipro and flagyl. Leukocytosis resolved for days, likely was reactive -Repeat KUB 11/17 shows no evidence of pathological dilatation. Elevated blood pressure-secondary to pain, now much improved DVT prophylaxis -SCDs Code Status -Level I, FULL RESUSCITATION STATUS Total Time Spent: Greater than 30 minutes This includes examination of the patient, discharge planning, medication reconciliation, and communication with other providers. (Simona Baker ., PA-C) I agree with PA assessment and plan and have seen and examined pt myself Admitted with SBO TOlerating diet VSS Labs reviewed No N/V/D Stable for discharge home (Matthew Gregory, D.O.) Discharge Instructions Please refer to the electronic Patient Visit Report (Discharge Instructions) for additional information. (Simona Baker ., TYRELL-C) Additional Copies To Vito Ramos M.D.
--- NOTE | 2016-11-17 16:10 | Medical Student: [facility] ---
Med Student Progress Note Date of Service November 17, 2016. Subjective Pt evaluation today including: conversation w/ patient, physical exam, chart review, lab review, review of studies, review of inpatient medication list Pain: Ms. Schuster reported no pain. PO Intake: Tolerating liquid diet, advancing to normal diet Voiding: no voiding problems Ms. Schuster reported no abdominal pain, nausea, or vomiting. One bowel movement AM. Review of Systems Abdomen: No constipation, No diarrhea, No nausea, No pain, No vomiting Objective Vital Signs Date Time Temp Pulse Resp B/P Pulse Ox O2 Delivery O2 Flow Rate FiO2 11/17/16 13:55 36.8 77 16 95 Room Air 11/17/16 07:55 36.8 77 16 144/87 95 Room Air 11/17/16 07:20 Room Air 11/16/16 23:35 Room Air 11/16/16 23:18 37.0 69 16 125/81 97 Room Air 11/16/16 16:15 Room Air Physical Exam General Appearance: WD/WN, no apparent distress Respiratory/Chest: lungs clear, normal breath sounds Cardiovascular: regular rate, rhythm, no edema, no murmur Abdomen: non tender, soft Extremities: no pedal edema Skin: normal color Laboratory Results Last 24 Hours Test 11/17/16 07:01 White Blood Count 5.54 K/uL Red Blood Count 4.50 M/uL Hemoglobin 13.7 g/dL Hematocrit 40.4 % Mean Corpuscular Volume 89.8 fL Mean Corpuscular Hemoglobin 30.4 pg Mean Corpuscular Hemoglobin Concent 33.9 g/dl Platelet Count 218 K/uL Mean Platelet Volume 10.0 fL Neutrophils (%) (Auto) 56.8 % Lymphocytes (%) (Auto) 32.5 % Monocytes (%) (Auto) 8.7 % Eosinophils (%) (Auto) 1.4 % Basophils (%) (Auto) 0.4 % Neutrophils # (Auto) 3.15 K/uL Lymphocytes # (Auto) 1.80 K/uL Monocytes # (Auto) 0.48 K/uL Eosinophils # (Auto) 0.08 K/uL Basophils # (Auto) 0.02 K/uL RDW Standard Deviation 42.7 fL RDW Coefficient of Variation 13.1 % Immature Granulocyte % (Auto) 0.2 % Immature Granulocyte # (Auto) 0.01 K/uL Sodium Level 140 mmol/L Potassium Level 3.7 mmol/L Chloride Level 108 mmol/L Carbon Dioxide Level 24 mmol/L Anion Gap 8.0 mmol/L Blood Urea Nitrogen 4 mg/dl Creatinine 0.57 mg/dl Est Creatinine Clear Calc Drug Dose 126.1 ml/min Estimated GFR () 134.4 Estimated GFR (Non- 116.0 BUN/Creatinine Ratio 6.8 Random Glucose 87 mg/dl Calcium Level 8.1 mg/dl Magnesium Level 2.3 mg/dl Assessment and Plan Assessment and Plan: Ms. Schuster is a 41y/o female admitted on 11/15/16 for abdominal pain, nausea, and vomiting. CT showed small bowel obstruction and lab work revealed leukocytosis. Cipro and flagyl were administered and discharged on 11/17/16. Small bowel obstruction: Improvement- patient passed one bowel movement this morning (11/17/16). Tolerated liquid diet, advanced to regular diet. X-ray shows resolved SBO. Discharge planning: home
== END 2016-11-17 14:10 | disposition home or self-care (01) | DRG 390 ==
LOC: ENRESERVTM → ENRESERVDT → C.EDB 03:19 → C.MSN 06:18
PROVIDERS: ADMIT Hospitalist; ATTEND Hospitalist
DX: K56.60 Unspecified intestinal obstruction (principal); Z88.0 Allergy status to penicillin

== ENCOUNTER 2019-01-26 00:27 | Inpatient (IN) ==
[2019-01-26] MEDS ORDERED: SODIUM CHLORIDE 0.9% 1000ML 1,000 ML IV ONE (00:49)
[2019-01-26] MEDS ORDERED: DiphenhydrAMINE HCL 50 MG/ML VIAL IV STA (00:49)
[2019-01-26] MEDS ORDERED: KETOROLAC TROMETHAMINE 15 MG/ML VIAL IV STA (00:49)
[2019-01-26] MEDS ORDERED: METOCLOPRAMIDE HCL INJ 5 MG/ML 2 ML VIAL IV STA (00:49)
[2019-01-26 01:03] LABS: Appearance Urine Cloudy (Clear); Bacteria Urine Automated Negative (Negative); Basophils # (auto) 0.04 K/uL (0-0.2); Basophils % (auto) 0.5 %; Bilirubin Urine Negative (Negative); Blood Urine 2+ (Negative); Color Urine Yellow; Eosinophils # (auto) 0.03 K/uL (0-0.5); Eosinophils % (auto) 0.4 %; Glucose Urine UA Negative (Negative); Hematocrit (blood only) 42.2 % (37-47); Hemoglobin 14.5 g/dL (12.0-16.0); Immature Granulocytes # (auto) 0.04 K/uL (0.00-0.02); Immature Granulocytes % (auto) 0.5 %; Ketones Urine 1+ (Negative); Leukocyte Esterase Urine Negative (Negative); Lymphocytes # (auto) 2.73 K/uL (1.2-3.4); Mean Corpuscular Hgb Conc 34.4 g/dL (32-36); Mean Corpuscular Volume 88.5 fL (80-100); Monocytes # (auto) 0.75 K/uL (0.11-0.59); Monocytes % (auto) 9.1 %; Neutrophils # (auto) 4.68 K/uL (1.4-6.5); Neutrophils % (auto) 56.5 %; Nitrite Urine Negative (Negative); Platelet Count 203 K/uL (130-400); Protein Urine Negative (Negative); RDW Coefficient of Variation 13.7 % (11.5-14.5); RDW Standard Deviation 44.5 fL (36.4-46.3); Red Blood Count 4.77 M/uL (4.2-5.4); Specific Gravity Urine 1.025 (1.000-1.030); Urobilinogen Urine Negative (Negative); White Blood Count 8.27 K/uL (4.8-10.8); pH Urine 5.5 (4.5-7.5)
--- NOTE | 2019-01-26 01:11 | Emergency Department Note ---
History of Present Illness General Chief complaint: GI Assessment Stated complaint: ILEUS/BOWEL BLOCKAGE W/ VOMITING History of Present Illness Maximum Pain Intensity: 8 This 43-year-old presents to the ER complaining of abdominal pain with nausea and vomiting Location: Upper abdomen Quality: Crampy Severity: Moderate Duration: This afternoon Timing: Started shortly after lunch which was a salad Context: Symptoms got worse and patient came in Modifying factors: better with nothing; worse with palpation Patient had multiple abdominal surgeries. She has a history of bowel obstructions and ileus is. Symptoms feel similar. She had an appendectomy and a cholecystectomy. Patient denies chest pain, dyspnea, cough, congestion, back pain, urinary symptoms. Home Medications Home Medications Medication Instructions Recorded Confirmed Type No Known Home Medications 01/26/19 01/26/19 History Allergies Allergy/AdvReac Type Severity Reaction Status Date / Time Penicillins Allergy Severe AMOXICILLIN-ITCHY Verified 01/26/19 00:56 HIVES Past Med/Surg History Medical History Small bowel obstruction Surgical History History of cholecystectomy (Resolved) Hx of appendectomy (Resolved) Social History Preferred Language: Kinyarwanda Feels Safe at Home: Yes Smoking Status: Never smoker Review of Systems All systems reviewed & are unremarkable except as noted in HPI & below Physical Exam Vital Signs Vital Signs - 24 hr 01/26/19 00:30 01/26/19 01:05 01/26/19 01:15 Temperature 36.6 C Temperature Source Oral Sepsis Recent Fever Within 48 Hours No Sepsis New/Unexplained Change in Mental Status No Sepsis Action Taken by Nursing No Action Required Pulse Rate 90 87 65 Pulse Rate from SpO2 Sensor 88 Respiratory Rate 18 17 20 Blood Pressure 148/103 H Blood Pressure Mean 118 Pulse Oximetry 97 97 98 Oxygen Delivery Method Room Air 01/26/19 01:37 01/26/19 01:38 01/26/19 02:00 Temperature Temperature Source Sepsis Recent Fever Within 48 Hours Sepsis New/Unexplained Change in Mental Status Sepsis Action Taken by Nursing Pulse Rate 72 73 74 Pulse Rate from SpO2 Sensor 72 73 74 Respiratory Rate 21 17 17 Blood Pressure 127/81 119/76 Blood Pressure Mean 96 90 Pulse Oximetry 98 97 97 Oxygen Delivery Method Room Air 01/26/19 02:01 Temperature Temperature Source Sepsis Recent Fever Within 48 Hours Sepsis New/Unexplained Change in Mental Status Sepsis Action Taken by Nursing Pulse Rate 68 Pulse Rate from SpO2 Sensor 70 Respiratory Rate 17 Blood Pressure Blood Pressure Mean Pulse Oximetry 98 Oxygen Delivery Method VITALS: Vitals are noted on the nurse's note and reviewed by myself. Vital signs stable. GENERAL: White female, in no acute distress, nondiaphoretic, well-developed well-nourished. SKIN: The skin was without rashes, erythema, edema, or bruising. There is no tenting of the skin. Capillary reflex less than 2 seconds. HEAD: Normocephalic atraumatic. EARS: External auditory canals clear EYES: Pupils equal round and reactive to light and accommodation. Conjunctivae without injection, sclerae without icterus. Extraocular movements intact. NOSE: Patent, turbinates without inflammation or discharge. MOUTH: Mucous membranes moist. Pharynx without erythema or exudate. Uvula midline. Airway patent. Tongue does not deviate. NECK: Supple without nuchal rigidity. No lymphadenopathy. No thyromegaly. Cervical spine is nontender. No JVD. HEART: Regular rate and rhythm without murmurs gallops or rubs. LUNGS: Clear to auscultation bilaterally without wheezes, rales or rhonchi. No retractions or accessory muscle use. ABDOMEN: Positive bowel sounds x 4. Normal tympanic percussion. Soft, tender to palpation mid upper abdomen, without masses or organomegaly. Reed sign negative. No guarding or rebound tenderness. No CVA tenderness MUSCULOSKELETAL: No muscle atrophy, erythema, or edema noted. NEURO: Patient was alert and oriented to person place and time. Normal sensation to light and sharp touch. No focal neurological deficits. Course Administered Medications Sodium Chloride (Nss 1000ml) 1,000 mls @ 125 mls/hr IV .Q8H BARBARA Stop: 02/25/19 03:14 Last Admin: 01/26/19 03:13 Dose: 125 mls/hr Documented by: [id number] Ioversol (Optiray 320 100ml) 100 ml IV ONCE PRN PRN Reason: Interaction Checking Stop: 01/30/19 01:35 Last Admin: 01/26/19 01:37 Dose: 93 ml Documented by: [id number] Discontinued Medications Diphenhydramine HCl (Benadryl) 25 mg IV NOW STA Stop: 01/26/19 00:50 Last Admin: 01/26/19 01:02 Dose: 25 mg Documented by: [id number] Sodium Chloride (Nss 1000ml) 1,000 mls @ 999 mls/hr IV .Q1H1M ONE Stop: 01/26/19 01:49 Last Infusion: 01/26/19 02:04 Dose: 0 mls/hr Documented by: [id number] Admin: 01/26/19 01:02 Dose: 999 mls/hr Documented by: [id number] Ketorolac Tromethamine (Toradol) 10 mg IV NOW STA Stop: 01/26/19 00:50 Last Admin: 01/26/19 01:02 Dose: 10 mg Documented by: [id number] Metoclopramide HCl (Reglan) 10 mg IV NOW STA Stop: 01/26/19 00:50 Last Admin: 01/26/19 01:02 Dose: 10 mg Documented by: [id number] Medical Decision Making Medical Records Attestation: I reviewed the patient's medical records. Home Medications Current Medication List: was personally reviewed by me Laboratory Data Attestation: I reviewed the patient's lab results. Result diagrams: 01/26/19 00:52 01/26/19 00:52 Lab Results 01/26/19 01/26/19 01/26/19 Range/Units 00:52 00:52 00:52 WBC 8.27 (4.8-10.8) K/uL RBC 4.77 (4.2-5.4) M/uL Hgb 14.5 (12.0-16.0) g/dL Hct 42.2 (37-47) % MCV 88.5 (80-100) fL MCH 30.4 (25-34) pg MCHC 34.4 (32-36) g/dL RDW Std Deviation 44.5 (36.4-46.3) fL RDW Coeff of Lissette 13.7 (11.5-14.5) % Plt Count 203 (130-400) K/uL MPV 10.0 (7.4-10.4) fL Immature Gran % (Auto) 0.5 % Neut % (Auto) 56.5 % Lymph % (Auto) 33.0 % [place] % (Auto) 9.1 % Eos % (Auto) 0.4 % Baso % (Auto) 0.5 % Immature Gran # (Auto) 0.04 H (0.00-0.02) K/uL Neut # (Auto) 4.68 (1.4-6.5) K/uL Lymph # (Auto) 2.73 (1.2-3.4) K/uL [place] # (Auto) 0.75 H (0.11-0.59) K/uL Eos # (Auto) 0.03 (0-0.5) K/uL Baso # (Auto) 0.04 (0-0.2) K/uL Sodium 139 (136-145) mmol/L Potassium 3.5 (3.5-5.1) mmol/L Chloride 104 (98-107) mmol/L Carbon Dioxide 29 (21-32) mmol/L Anion Gap 6.0 (3-11) BUN 14 (7-18) mg/dl Creatinine 0.82 (0.6-1.2) mg/dl Est Cr Clr Drug Dosing 82.3 ml/min Est GFR ( Amer) 102.3 Est GFR (Non-Af Amer) 88.3 BUN/Creatinine Ratio 16.6 (10-20) Glucose 101 H (70-99) mg/dl Calcium 8.9 (8.5-10.1) mg/dl Magnesium 2.4 (1.8-2.4) mg/dl Total Bilirubin 1.0 (0.2-1) mg/dl AST 26 (15-37) U/L ALT 54 (12-78) U/L Alkaline Phosphatase 46 (45-117) U/L Total Protein 8.1 (6.4-8.2) gm/dl Albumin 4.0 (3.4-5.0) gm/dl Globulin 4.1 H (2.5-4.0) gm/dl Albumin/Globulin Ratio 1.0 (0.9-2) Lipase 138 (73-393) U/L HCG, Qual Negative (Negative) Urine Color Urine Appearance (Clear) Urine pH (4.5-7.5) Ur Specific [place] (1.000-1.030) Urine Protein (Negative) Urine Glucose (UA) (Negative) Urine Ketones (Negative) Urine Blood (Negative) Urine Nitrite (Negative) Urine Bilirubin (Negative) Urine Urobilinogen (Negative) Ur Leukocyte Esterase (Negative) Urine WBC (Auto) (0-5) /hpf Urine RBC (Auto) (0-4) /hpf U Hyaline Cast (Auto) (0-5) /lpf U Epithel Cells (Auto) (0-5) /lpf Urine Bacteria (Auto) (Negative) 01/26/19 Range/Units 00:52 WBC (4.8-10.8) K/uL RBC (4.2-5.4) M/uL Hgb (12.0-16.0) g/dL Hct (37-47) % MCV (80-100) fL MCH (25-34) pg MCHC (32-36) g/dL RDW Std Deviation (36.4-46.3) fL RDW Coeff of Lissette (11.5-14.5) % Plt Count (130-400) K/uL MPV (7.4-10.4) fL Immature Gran % (Auto) % Neut % (Auto) % Lymph % (Auto) % [place] % (Auto) % Eos % (Auto) % Baso % (Auto) % Immature Gran # (Auto) (0.00-0.02) K/uL Neut # (Auto) (1.4-6.5) K/uL Lymph # (Auto) (1.2-3.4) K/uL [place] # (Auto) (0.11-0.59) K/uL Eos # (Auto) (0-0.5) K/uL Baso # (Auto) (0-0.2) K/uL Sodium (136-145) mmol/L Potassium (3.5-5.1) mmol/L Chloride (98-107) mmol/L Carbon Dioxide (21-32) mmol/L Anion Gap (3-11) BUN (7-18) mg/dl Creatinine (0.6-1.2) mg/dl Est Cr Clr Drug Dosing ml/min Est GFR ( Amer) Est GFR (Non-Af Amer) BUN/Creatinine Ratio (10-20) Glucose (70-99) mg/dl Calcium (8.5-10.1) mg/dl Magnesium (1.8-2.4) mg/dl Total Bilirubin (0.2-1) mg/dl AST (15-37) U/L ALT (12-78) U/L Alkaline Phosphatase (45-117) U/L Total Protein (6.4-8.2) gm/dl Albumin (3.4-5.0) gm/dl Globulin (2.5-4.0) gm/dl Albumin/Globulin Ratio (0.9-2) Lipase (73-393) U/L HCG, Qual (Negative) Urine Color Yellow Urine Appearance Cloudy A (Clear) Urine pH 5.5 (4.5-7.5) Ur Specific [place] 1.025 (1.000-1.030) Urine Protein Negative (Negative) Urine Glucose (UA) Negative (Negative) Urine Ketones 1+ H (Negative) Urine Blood 2+ H (Negative) Urine Nitrite Negative (Negative) Urine Bilirubin Negative (Negative) Urine Urobilinogen Negative (Negative) Ur Leukocyte Esterase Negative (Negative) Urine WBC (Auto) 1-5 (0-5) /hpf Urine RBC (Auto) 5-10 H (0-4) /hpf U Hyaline Cast (Auto) 1-5 (0-5) /lpf U Epithel Cells (Auto) 10-20 H (0-5) /lpf Urine Bacteria (Auto) Negative (Negative) Imaging Data Attestation: I personally reviewed and interpreted this imaging study as follows: MDM Narrative Prior records/ancillary studies reviewed. Triage Nursing notes reviewed. Additional history obtained from family. The patient's history was concerning for abdominal pain. Differential diagnosis: Etiologies such as appendicitis, diverticulitis, PUD, biliary pathology, UTI, pancreatitis, obstruction, mesenteric ischemia, aortic pathology, infections, inflammatory bowel disease, renal colic, as well as others were entertained. Physical examination findings: As above. ER treatment provided: Reglan, Benadryl, Toradol, IV fluids On reassessment the patient felt better. Diagnostics interpreted by me: The labs revealed no leukocytosis. Stable H&H. Stable creatinine. Negative hCG. Negative urine Imaging studies: CT ABDOMEN & PELVIS With Contrast: Multiple dilated fluid-filled loops of small bowel, raising concern for a mid to distal level small bowel obstruction. IUD in place. No definite adnexal masses. No free fluid. [id number] right hydroureteronephrosis. A radiopaque obstructing calculus is not clearly seen distally. Splenomegaly. Radiologist: Chad Gamboa M.D. Consultation: A consultation was placed with Dr. Vale. The case was discussed and diagnostics were reviewed. The patient was evaluated in the ER for further treatment. Exam and history seem consistent with bowel obstruction with possible kidney stone. Patient was placed n.p.o. Medicine was consulted. Patient is agreeable to treatment plan of admission. She has a history of bowel obstructions. By the evaluation outlined above emergent etiologies such as appendicitis, diverticulitis, PUD, biliary pathology, UTI, pancreatitis, mesenteric ischemia, aortic pathology, infections, inflammatory bowel disease, as well as others were deemed relatively unlikely. The pt informed about the findings as listed above. All questions were answered and pleased with the treatment. Case reviewed with my attending The chart was completed utilizing [employer] ([employer]) Speech voice recognition software. Grammatical errors, random word insertions, pronoun errors, and incomplete sentences are an occassional consequence of this system due to software limitations, ambient noise, and hardware issues. Any formal questions or concerns about the content, text, or information contained within the body of this dictation should be directly addressed to the physician senior assistant manager for clarification. Impression & Plan Small bowel obstruction Discharge Plan Visit Data Chief Complaint: GI Assessment Stated Complaint: ILEUS/BOWEL BLOCKAGE W/ VOMITING ED Provider: Ifrah Stoner ED Midlevel Provider: Kendra Miranda Discharge Problem: Small bowel obstruction Patient Disposition: Being Evaluated by Hospitalist Condition: Good Forms Stand Alone Forms: My [employer] Prescriptions Prescriptions: No Action No Known Home Medications RF: 0 Referrals Referrals: Elroy Borja [Primary Care Provider] -
[2019-01-26 01:20] LABS: BUN Creatinine Ratio 16.6 (10-20); Calcium 8.9 mg/dl (8.5-10.1); Creatinine Clr Calc Pharmacy 82.3 ml/min; Est GFR (African American) 102.3; Est GFR (Non-African American) 88.3; Magnesium 2.4 mg/dl (1.8-2.4); Potassium 3.5 mmol/L (3.5-5.1)
[2019-01-26 01:22] LABS: Pregnancy Test, Serum Negative (Negative)
[2019-01-26 01:23] LABS: Globulin 4.1 gm/dl (2.5-4.0); Total Protein 8.1 gm/dl (6.4-8.2)
[2019-01-26] MEDS ORDERED: IOVERSOL 100ml IV PRN (01:36)
[2019-01-26] MEDS ORDERED: SODIUM CHLORIDE 0.9% 1000ML 1,000 ML IV SCH ×2 (03:15→05:06)
--- NOTE | 2019-01-26 04:06 | History & Physical Report ---
Date of Service January 26, 2019 Assessment & Plan (1) Small bowel obstruction: This is a 43-year-old female who states she was in her usual state of health earlier today. She had gone to work, participated in her exercise activities. She states that at lunchtime she prepared herself salad ate it without any issues but shortly thereafter developed acute epigastric abdominal pain. She also developed nonbloody emesis. She states she had 2 bowel movements this morning. She states she has a history of small bowel obstructions and indeed upon review of records she has had one 1 year ago. She has a history of appendectomy and cholecystectomy. She does not follow with a general surgeon or founder. She does not take any medications. In the ED, CT abdomen pelvis was concerning for small bowel obstruction. It also showed a right mild to moderate hydroureteronephrosis. She is given 10 mg of IV Toradol as well as an antiemetic and fluids with good effect. Her labs are otherwise unremarkable, she has no kidney injury. She has remained afebrile and vitals have been stable. Abdominal pain likely secondary to small bowel obstruction versus ileus -10 mg of IV Toradol and antiemetic in the ED with good effect -[facility] -IV hydration -IV Zofran as needed, IV morphine PRN -Consult general surgery -N.p.o., advance as tolerated -No clear indication for NG tube placement at this point. Will defer. FEN/GI: NPO. NSS @ 100ml/hr. DVT ppx: SCDs. To see Gen Surg, will hold off on chemical anticoag at this point. CODE STATUS: FULL as d/w pt. DISPO: Med/surg (2) History of cholecystectomy: (3) Hx of appendectomy: (4) Hydroureteronephrosis: History of Present Illness Chief Complaint: Abdominal pain, emesis, history of small bowel obstruction and ileus. Primary Care Provider: Elroy Borja This is a 43-year-old female who states she was in her usual state of health earlier today. She had gone to work, participated in her exercise activities. She states that at lunchtime she prepared herself salad ate it without any issues but shortly thereafter developed acute epigastric abdominal pain. She also developed nonbloody emesis. She states she had 2 bowel movements this morning. She states she has a history of small bowel obstructions and indeed upon review of records she has had one 1 year ago. She has a history of appendectomy and cholecystectomy. She does not follow with a general surgeon or founder. She does not take any medications. In the ED, CT abdomen pelvis was concerning for small bowel obstruction. It also showed a right mild to moderate hydroureteronephrosis. She is given 10 mg of IV Toradol as well as an antiemetic and fluids with good effect. Her labs are otherwise unremarkable, she has no kidney injury. She has remained afebrile and vitals have been stable. Allergies Allergy/AdvReac Type Severity Reaction Status Date / Time Penicillins Allergy Severe AMOXICILLIN-ITCHY Verified 01/26/19 00:56 HIVES Home Medications Home Medications Medication Instructions Recorded Confirmed Type No Known Home Medications 01/26/19 01/26/19 History Past Med/Surg History Medical History Kidney cysts Kidney stones Pulmonary embolism Small bowel obstruction Surgical History History of cholecystectomy (Resolved) Hx of appendectomy (Resolved) Social History Preferred Language: Tuvaluan Communication Ability: Effective Head Esthetician Required: No Beliefs That Will Affect Care: None Current Living Situation: Spouse Other Information That Helps Us Care for You: No Feels Safe at Home: Yes Safety Concerns: Feels Safe At This Time Smoking Status: Former smoker Hx Alcohol Use: No Hx Substance Use: No Review of Systems Review of Systems: All systems reviewed & are unremarkable except as noted in HPI & below Physical Exam Physical Exam: Vitals noted and within normal limits GENERAL: Awake, alert to person, place, and time, nontoxic-appearing, in no distress. HENT: Normocephalic, atraumatic. . Mucus membranes appear moist. EYES: Normal conjunctiva. Sclera non-icteric. EOMI. NECK: Supple. Full range of motion. No JVD. RESPIRATORY: Clear to auscultation. Normal work of breathing. CARDIAC: Regular rate, normal rhythm. Extremities warm and well perfused, 2+ radial pulses bilaterally; 2+ posterior tibialis pulses bilaterally. ABDOMEN: Soft, non-distended. No tenderness to palpation in all four quadrants. No rebound or guarding. No masses. Bowel sounds are + hypoactive in the LLQ, hyperactive in the LUQ. LOWER EXTREMITIES: Inspection of calves reveal equal size bilaterally. They are non-tender. No edema. No discoloration. NEURO: No gross focal motor deficits noted. Sensation in tact. CN II-XII grossly in tact. . SKIN: Rash not present. No jaundice noted. Significant lesions not present. PSYCH: Appropriate mood and affect. Cooperative. Exam as done by Sparkle Hirsch MD, Electrocardiogram Technician. Results & Data Vital Signs (Past 12 Hours) Vital Signs Temp Pulse Resp BP Pulse Ox 01/26/19 03:30 77 19 01/26/19 03:01 71 18 96 01/26/19 03:00 73 21 107/73 97 01/26/19 02:30 68 15 97 01/26/19 02:01 68 17 98 01/26/19 02:00 74 17 119/76 97 01/26/19 01:38 73 17 97 01/26/19 01:37 72 21 127/81 98 01/26/19 01:15 65 20 98 01/26/19 01:05 87 17 97 01/26/19 00:30 36.6 C 90 18 148/103 H 97 Laboratory Results 01/26/19 01/26/19 01/26/19 Range/Units 00:52 00:52 00:52 WBC (4.8-10.8) K/uL RBC (4.2-5.4) M/uL Hgb (12.0-16.0) g/dL Hct (37-47) % MCV (80-100) fL MCH (25-34) pg MCHC (32-36) g/dL RDW Std Deviation (36.4-46.3) fL RDW Coeff of Lissette (11.5-14.5) % Plt Count (130-400) K/uL MPV (7.4-10.4) fL Immature Gran % (Auto) % Neut % (Auto) % Lymph % (Auto) % [place] % (Auto) % Eos % (Auto) % Baso % (Auto) % Immature Gran # (Auto) (0.00-0.02) K/uL Neut # (Auto) (1.4-6.5) K/uL Lymph # (Auto) (1.2-3.4) K/uL [place] # (Auto) (0.11-0.59) K/uL Eos # (Auto) (0-0.5) K/uL Baso # (Auto) (0-0.2) K/uL Sodium 139 (136-145) mmol/L Potassium 3.5 (3.5-5.1) mmol/L Chloride 104 (98-107) mmol/L Carbon Dioxide 29 (21-32) mmol/L Anion Gap 6.0 (3-11) BUN 14 (7-18) mg/dl Creatinine 0.82 (0.6-1.2) mg/dl Est Cr Clr Drug Dosing 82.3 ml/min Est GFR ( Amer) 102.3 Est GFR (Non-Af Amer) 88.3 BUN/Creatinine Ratio 16.6 (10-20) Glucose 101 H (70-99) mg/dl Calcium 8.9 (8.5-10.1) mg/dl Magnesium 2.4 (1.8-2.4) mg/dl Total Bilirubin 1.0 (0.2-1) mg/dl AST 26 (15-37) U/L ALT 54 (12-78) U/L Alkaline Phosphatase 46 (45-117) U/L Total Protein 8.1 (6.4-8.2) gm/dl Albumin 4.0 (3.4-5.0) gm/dl Globulin 4.1 H (2.5-4.0) gm/dl Albumin/Globulin Ratio 1.0 (0.9-2) Lipase 138 (73-393) U/L HCG, Qual Negative (Negative) Urine Color Yellow Urine Appearance Cloudy A (Clear) Urine pH 5.5 (4.5-7.5) Ur Specific [place] 1.025 (1.000-1.030) Urine Protein Negative (Negative) Urine Glucose (UA) Negative (Negative) Urine Ketones 1+ H (Negative) Urine Blood 2+ H (Negative) Urine Nitrite Negative (Negative) Urine Bilirubin Negative (Negative) Urine Urobilinogen Negative (Negative) Ur Leukocyte Esterase Negative (Negative) Urine WBC (Auto) 1-5 (0-5) /hpf Urine RBC (Auto) 5-10 H (0-4) /hpf U Hyaline Cast (Auto) 1-5 (0-5) /lpf U Epithel Cells (Auto) 10-20 H (0-5) /lpf Urine Bacteria (Auto) Negative (Negative) 01/26/19 Range/Units 00:52 WBC 8.27 (4.8-10.8) K/uL RBC 4.77 (4.2-5.4) M/uL Hgb 14.5 (12.0-16.0) g/dL Hct 42.2 (37-47) % MCV 88.5 (80-100) fL MCH 30.4 (25-34) pg MCHC 34.4 (32-36) g/dL RDW Std Deviation 44.5 (36.4-46.3) fL RDW Coeff of Lissette 13.7 (11.5-14.5) % Plt Count 203 (130-400) K/uL MPV 10.0 (7.4-10.4) fL Immature Gran % (Auto) 0.5 % Neut % (Auto) 56.5 % Lymph % (Auto) 33.0 % [place] % (Auto) 9.1 % Eos % (Auto) 0.4 % Baso % (Auto) 0.5 % Immature Gran # (Auto) 0.04 H (0.00-0.02) K/uL Neut # (Auto) 4.68 (1.4-6.5) K/uL Lymph # (Auto) 2.73 (1.2-3.4) K/uL [place] # (Auto) 0.75 H (0.11-0.59) K/uL Eos # (Auto) 0.03 (0-0.5) K/uL Baso # (Auto) 0.04 (0-0.2) K/uL Sodium (136-145) mmol/L Potassium (3.5-5.1) mmol/L Chloride (98-107) mmol/L Carbon Dioxide (21-32) mmol/L Anion Gap (3-11) BUN (7-18) mg/dl Creatinine (0.6-1.2) mg/dl Est Cr Clr Drug Dosing ml/min Est GFR ( Amer) Est GFR (Non-Af Amer) BUN/Creatinine Ratio (10-20) Glucose (70-99) mg/dl Calcium (8.5-10.1) mg/dl Magnesium (1.8-2.4) mg/dl Total Bilirubin (0.2-1) mg/dl AST (15-37) U/L ALT (12-78) U/L Alkaline Phosphatase (45-117) U/L Total Protein (6.4-8.2) gm/dl Albumin (3.4-5.0) gm/dl Globulin (2.5-4.0) gm/dl Albumin/Globulin Ratio (0.9-2) Lipase (73-393) U/L HCG, Qual (Negative) Urine Color Urine Appearance (Clear) Urine pH (4.5-7.5) Ur Specific [place] (1.000-1.030) Urine Protein (Negative) Urine Glucose (UA) (Negative) Urine Ketones (Negative) Urine Blood (Negative) Urine Nitrite (Negative) Urine Bilirubin (Negative) Urine Urobilinogen (Negative) Ur Leukocyte Esterase (Negative) Urine WBC (Auto) (0-5) /hpf Urine RBC (Auto) (0-4) /hpf U Hyaline Cast (Auto) (0-5) /lpf U Epithel Cells (Auto) (0-5) /lpf Urine Bacteria (Auto) (Negative) Supervising Physician Co-Signing Physician Notes Attending addendum: I have physically seen this patient, have supervised the medical residents nisa bolden, and agree with the H&P unless as otherwise noted. Assessment and Plan: Partial small bowel obstruction versus ileus/history of previous SBO's- Admit to MedSurg. IV fluids. NPO Zofran 4 mg IV every 6 hours PRN. Acetaminophen 1 g IV every 8 hours PRN mild pain or temperature. Morphine sulfate IV as needed severe pain. Famotidine 20 mg IV every 12 hours. Consult general surgery. Remainder of orders and notations as noted. PG Care Time/CCT Total # of Minutes Spent Total Time Spent with Patient: Total time spent is greater than 50% in coordination of care (as documented) at patient's floor/unit and/or counseling patient: Resident Activity Tracking Resident Involvement: Resident Care Provided Care Provided: Adult Hospital Medicine
[2019-01-26] MEDS ORDERED: ACETAMINOPHEN 1000 MG/100 ML IV IV PRN (05:06)
[2019-01-26] MEDS ORDERED: MoRPHine SULFATE 2 MG/ML CARP IV PRN (05:06)
[2019-01-26] MEDS ORDERED: ONDANSETRON INJ 2 MG/ML 2 ML VIAL IV PRN (05:06)
--- NOTE | 2019-01-26 07:23 | CT Scan Report ---
ABDOMEN AND PELVIS CT WITH IV CONTRAST CT DOSE: 528.21 mGy.cm HISTORY: mid abd pain, hx SBO TECHNIQUE: Multiaxial CT images of the abdomen and pelvis were performed following the use of intrave nous contrast. A dose lowering technique was utilized adhering to the principles of ALARA. COMPARISON STUDY: Abdomen and pelvis CT 12/15/2017. FINDINGS: The lung bases are clear. No pneumoperitoneum. No pneumatosis. No suspicious lytic or blast ic osseous lesions. The spleen is top normal in size measuring 12.1 cm in length. No hepatic or splen ic masses. The adrenal glands and pancreas are unremarkable. The gallbladder is not identified and li sil surgically absent. A few small hypodense lesions within the kidneys. These are technically too s mall to characterize but favor cysts. Right-sided nephrolithiasis. Mild right hydronephrosis to the l evel of the ureterovesical junction. However, no obstructing stones identified. Normal bladder. No le ft-sided hydronephrosis. No retroperitoneal lymphadenopathy. An intrauterine device is noted. The int rauterine device appears low lying but remains in the endometrial cavity. Fluid-filled small and larg e bowel. Mild dilated loops of proximal to mid small bowel are noted. The distal ileal loops are deco mpressed. Therefore, this is consistent with a small bowel obstruction. The transition point is likel y within the deep pelvis/right lower quadrant. IMPRESSION: 1. Multiple dilated fluid-filled loops of proximal to mid small bowel. An exact transition point is n ot clearly identified but is likely located within the right lower quadrant at the distal small bowel . Therefore, this favors a developing small bowel obstruction. 2. Mild right hydroureteronephrosis to the level of the ureterovesical junction. No ureteral calculi identified. 3. An intrauterine device is within the endometrial cavity but is low-lying. 4. Right-sided nephrolithiasis. 5. Additional findings as described above. Electronically signed by: Jeremy Braxton M.D. 01/26/2019 7:21 AM
--- NOTE | 2019-01-26 08:05 | Family Medicine Progress Note ---
Date of Service January 26, 2019 Assessment & Plan (1) Small bowel obstruction: This is a 43-year-old female who states she was in her usual state of health earlier today. She had gone to work, participated in her exercise activities. She states that at lunchtime she prepared herself salad ate it without any issues but shortly thereafter developed acute epigastric abdominal pain. She also developed nonbloody emesis. She states she had 2 bowel movements this morning. She states she has a history of small bowel obstructions and indeed upon review of records she has had one 1 year ago. She has a history of appendectomy and cholecystectomy. She does not follow with a general surgeon or medical service representative. She does not take any medications. In the ED, CT abdomen pelvis was concerning for small bowel obstruction. It also showed a right mild to moderate hydroureteronephrosis. She is given 10 mg of IV Toradol as well as an antiemetic and fluids with good effect. Her labs are otherwise unremarkable, she has no kidney injury. She has remained afebrile and vitals have been stable. Abdominal pain likely secondary to small bowel obstruction versus ileus -10 mg of IV Toradol and antiemetic in the ED with good effect -We will admit to [facility] for further management -IV hydration -IV Zofran as needed, IV morphine PRN -Consult general surgery -N.p.o., advance as tolerated -No clear indication for NG tube placement at this point. Will defer. FEN/GI: NPO. NSS @ 100ml/hr. DVT ppx: SCDs. To see Gen Surg, will hold off on chemical anticoag at this point. CODE STATUS: FULL as d/w pt. DISPO: Med/surg Results & Data Vital Signs (Past 12 Hours) Vital Signs Temp Pulse Pulse Resp BP BP Pulse Ox 01/26/19 05:16 36.7 C 74 16 114/78 96 01/26/19 03:30 77 19 01/26/19 03:01 71 18 96 01/26/19 03:00 73 21 107/73 97 01/26/19 02:30 68 15 97 01/26/19 02:01 68 17 98 01/26/19 02:00 74 17 119/76 97 01/26/19 01:38 73 17 97 01/26/19 01:37 72 21 127/81 98 01/26/19 01:15 65 20 98 01/26/19 01:05 87 17 97 01/26/19 00:30 36.6 C 90 18 148/103 H 97 Laboratory Results 01/26/19 01/26/19 01/26/19 Range/Units 00:52 00:52 00:52 WBC (4.8-10.8) K/uL RBC (4.2-5.4) M/uL Hgb (12.0-16.0) g/dL Hct (37-47) % MCV (80-100) fL MCH (25-34) pg MCHC (32-36) g/dL RDW Std Deviation (36.4-46.3) fL RDW Coeff of Lissette (11.5-14.5) % Plt Count (130-400) K/uL MPV (7.4-10.4) fL Immature Gran % (Auto) % Neut % (Auto) % Lymph % (Auto) % Rusk % (Auto) % Eos % (Auto) % Baso % (Auto) % Immature Gran # (Auto) (0.00-0.02) K/uL Neut # (Auto) (1.4-6.5) K/uL Lymph # (Auto) (1.2-3.4) K/uL Rusk # (Auto) (0.11-0.59) K/uL Eos # (Auto) (0-0.5) K/uL Baso # (Auto) (0-0.2) K/uL Sodium 139 (136-145) mmol/L Potassium 3.5 (3.5-5.1) mmol/L Chloride 104 (98-107) mmol/L Carbon Dioxide 29 (21-32) mmol/L Anion Gap 6.0 (3-11) BUN 14 (7-18) mg/dl Creatinine 0.82 (0.6-1.2) mg/dl Est Cr Clr Drug Dosing 82.3 ml/min Est GFR ( Amer) 102.3 Est GFR (Non-Af Amer) 88.3 BUN/Creatinine Ratio 16.6 (10-20) Glucose 101 H (70-99) mg/dl Calcium 8.9 (8.5-10.1) mg/dl Magnesium 2.4 (1.8-2.4) mg/dl Total Bilirubin 1.0 (0.2-1) mg/dl AST 26 (15-37) U/L ALT 54 (12-78) U/L Alkaline Phosphatase 46 (45-117) U/L Total Protein 8.1 (6.4-8.2) gm/dl Albumin 4.0 (3.4-5.0) gm/dl Globulin 4.1 H (2.5-4.0) gm/dl Albumin/Globulin Ratio 1.0 (0.9-2) Lipase 138 (73-393) U/L HCG, Qual Negative (Negative) Urine Color Yellow Urine Appearance Cloudy A (Clear) Urine pH 5.5 (4.5-7.5) Ur Specific [place] 1.025 (1.000-1.030) Urine Protein Negative (Negative) Urine Glucose (UA) Negative (Negative) Urine Ketones 1+ H (Negative) Urine Blood 2+ H (Negative) Urine Nitrite Negative (Negative) Urine Bilirubin Negative (Negative) Urine Urobilinogen Negative (Negative) Ur Leukocyte Esterase Negative (Negative) Urine WBC (Auto) 1-5 (0-5) /hpf Urine RBC (Auto) 5-10 H (0-4) /hpf U Hyaline Cast (Auto) 1-5 (0-5) /lpf U Epithel Cells (Auto) 10-20 H (0-5) /lpf Urine Bacteria (Auto) Negative (Negative) 01/26/19 Range/Units 00:52 WBC 8.27 (4.8-10.8) K/uL RBC 4.77 (4.2-5.4) M/uL Hgb 14.5 (12.0-16.0) g/dL Hct 42.2 (37-47) % MCV 88.5 (80-100) fL MCH 30.4 (25-34) pg MCHC 34.4 (32-36) g/dL RDW Std Deviation 44.5 (36.4-46.3) fL RDW Coeff of Lissette 13.7 (11.5-14.5) % Plt Count 203 (130-400) K/uL MPV 10.0 (7.4-10.4) fL Immature Gran % (Auto) 0.5 % Neut % (Auto) 56.5 % Lymph % (Auto) 33.0 % Rusk % (Auto) 9.1 % Eos % (Auto) 0.4 % Baso % (Auto) 0.5 % Immature Gran # (Auto) 0.04 H (0.00-0.02) K/uL Neut # (Auto) 4.68 (1.4-6.5) K/uL Lymph # (Auto) 2.73 (1.2-3.4) K/uL Rusk # (Auto) 0.75 H (0.11-0.59) K/uL Eos # (Auto) 0.03 (0-0.5) K/uL Baso # (Auto) 0.04 (0-0.2) K/uL Sodium (136-145) mmol/L Potassium (3.5-5.1) mmol/L Chloride (98-107) mmol/L Carbon Dioxide (21-32) mmol/L Anion Gap (3-11) BUN (7-18) mg/dl Creatinine (0.6-1.2) mg/dl Est Cr Clr Drug Dosing ml/min Est GFR ( Amer) Est GFR (Non-Af Amer) BUN/Creatinine Ratio (10-20) Glucose (70-99) mg/dl Calcium (8.5-10.1) mg/dl Magnesium (1.8-2.4) mg/dl Total Bilirubin (0.2-1) mg/dl AST (15-37) U/L ALT (12-78) U/L Alkaline Phosphatase (45-117) U/L Total Protein (6.4-8.2) gm/dl Albumin (3.4-5.0) gm/dl Globulin (2.5-4.0) gm/dl Albumin/Globulin Ratio (0.9-2) Lipase (73-393) U/L HCG, Qual (Negative) Urine Color Urine Appearance (Clear) Urine pH (4.5-7.5) Ur Specific Newport (1.000-1.030) Urine Protein (Negative) Urine Glucose (UA) (Negative) Urine Ketones (Negative) Urine Blood (Negative) Urine Nitrite (Negative) Urine Bilirubin (Negative) Urine Urobilinogen (Negative) Ur Leukocyte Esterase (Negative) Urine WBC (Auto) (0-5) /hpf Urine RBC (Auto) (0-4) /hpf U Hyaline Cast (Auto) (0-5) /lpf U Epithel Cells (Auto) (0-5) /lpf Urine Bacteria (Auto) (Negative) Medications Administered Current Inpatient Medications Acetaminophen (Ofirmev) 1,000 mg IV TID PRN PRN Reason: Pain or Fever Stop: 02/25/19 05:05 Sodium Chloride (Nss 1000ml) 1,000 mls @ 100 mls/hr IV .Q10H BARBARA Stop: 02/25/19 05:05 Last Admin: 01/26/19 05:29 Dose: 100 mls/hr Documented by: Morphine Sulfate (Morphine Sulfate) 0.5 mg IV Q4H PRN PRN Reason: Pain Stop: 02/09/19 05:05 Ondansetron HCl (Zofran) 4 mg IV Q4H PRN PRN Reason: Nausea Stop: 02/25/19 05:05 Potassium Chloride (Klor-Con M20) 20 meq PO Q2H BARBARA Stop: 01/26/19 10:16 PG Care Time/CCT Total # of Minutes Spent Total Time Spent with Patient: Total time spent is greater than 50% in coordination of care (as documented) at patient's floor/unit and/or counseling patient:
[2019-01-26] MEDS ORDERED: LACTATED RINGER'S 1,000 ML IV SCH (08:15)
--- NOTE | 2019-01-26 08:16 | Surgery Consultation ---
Date of Consultation January 26, 2019 Assessment & Plan (1) Small bowel obstruction: clinically much improved already will check KUB if xray improved can start /advance diet low likelyhood of needing surgery this admission if tolerates diet could be discharged later today (pt's preference) or tomorrow morning rec follow up with pcp regarding mild hyronephrosis and hematuria. History of Present Illness Attending Physician: Roberth Garcia MD History of Present Illness pt was feeling normal yesterday when after eating a salad she began having upper abdominal pain and nausea. had a bout of emesis last night. Had similar episode in past and admitted with a SBO. She has had a lap kinga in 1994 complicated by a CBD injury requiring and ex-lap to fix as well as an open appendectomy. currently feeling "back to normal". abdominal distension improved. no nausea. no pain. would like to go home. Allergies Allergy/AdvReac Type Severity Reaction Status Date / Time Penicillins Allergy Severe AMOXICILLIN-ITCHY Verified 01/26/19 00:56 HIVES Home Medications Home Medications Medication Instructions Recorded Confirmed Type No Known Home Medications 01/26/19 01/26/19 History Patient History Medical History Kidney cysts Kidney stones Pulmonary embolism Small bowel obstruction Surgical History History of cholecystectomy (Resolved) Hx of appendectomy (Resolved) Social History Preferred Language: Hebrew Communication Ability: Effective [employer] Helper Required: No Beliefs That Will Affect Care: None Current Living Situation: Spouse Other Information That Helps Us Care for You: No Feels Safe at Home: Yes Safety Concerns: Feels Safe At This Time Smoking Status: Former smoker Hx Alcohol Use: No Hx Substance Use: No Review of Systems Review of Systems: All systems reviewed & are unremarkable except as noted in HPI & below Physical Exam Physical Exam: alert/oriented. nad. Heent: WNL's. Pearla. EOMI. Heart: RRR Lungs: CTA b/l abd: soft. nt. nd. no palpable abnormality ext: no c/c/e Results & Data Vital Signs (Past 12 Hours) Vital Signs Temp Pulse Pulse Pulse Resp BP BP 01/26/19 08:00 36.3 C L 66 14 110/76 01/26/19 05:16 36.7 C 74 16 114/78 01/26/19 03:30 77 19 01/26/19 03:01 71 18 01/26/19 03:00 73 21 107/73 01/26/19 02:30 68 15 01/26/19 02:01 68 17 01/26/19 02:00 74 17 119/76 01/26/19 01:38 73 17 01/26/19 01:37 72 21 127/81 01/26/19 01:15 65 20 01/26/19 01:05 87 17 01/26/19 00:30 36.6 C 90 18 148/103 H Pulse Ox 01/26/19 08:00 99 01/26/19 05:16 96 01/26/19 03:30 01/26/19 03:01 96 01/26/19 03:00 97 01/26/19 02:30 97 01/26/19 02:01 98 01/26/19 02:00 97 01/26/19 01:38 97 01/26/19 01:37 98 01/26/19 01:15 98 01/26/19 01:05 97 01/26/19 00:30 97
--- NOTE | 2019-01-26 09:04 | XRay Report ---
KUB HISTORY: Acute generalized abdominal pain with reported small bowel obstruction. SBO COMPARISON: CT abdomen and pelvis 01/26/2019 FINDINGS: There is decreased small bowel distention without definite small bowel obstruction identifi ed on today's study. No pneumatosis or pneumoperitoneum. Previously noted right-sided nephrolithiasis better seen on comparison CT. Moderate right-sided hydroureteronephrosis with persistent contrast wi thin the right renal collecting system redemonstrated. The right ureter is dilated to the level of th e ureterovesicular junction. IUD of the central pelvis. Bones appear grossly intact. IMPRESSION: 1. Decreased small bowel distention with nonobstructive bowel gas pattern. 2. Persistent moderate right-sided hydroureteronephrosis with dilation of the right ureter extending to the level of the ureterovesicular junction. 3. No pneumoperitoneum. Electronically signed by: Brendan Zamora M.D. 01/26/2019 9:03 AM
[2019-01-26] MEDS: POTASSIUM CHLORIDE 20 MEQ TABCR PO SCH ×2 (09:41→09:42)
--- NOTE | 2019-01-26 11:22 | Discharge Summary ---
Date of Service January 26, 2019 Admission HPI Per Admitting Provider This is a 43-year-old female who states she was in her usual state of health earlier today. She had gone to work, participated in her exercise activities. She states that at lunchtime she prepared herself salad ate it without any issues but shortly thereafter developed acute epigastric abdominal pain. She also developed nonbloody emesis. She states she had 2 bowel movements this morning. She states she has a history of small bowel obstructions and indeed upon review of records she has had one 1 year ago. She has a history of appendectomy and cholecystectomy. She does not follow with a general surgeon or cardiovascular disease specialist. She does not take any medications. In the ED, CT abdomen pelvis was concerning for small bowel obstruction. It also showed a right mild to moderate hydroureteronephrosis. She is given 10 mg of IV Toradol as well as an antiemetic and fluids with good effect. Her labs are otherwise unremarkable, she has no kidney injury. She has remained afebrile and vitals have been stable. Admission Exam Per Admitting Provider Vitals noted and within normal limits GENERAL: Awake, alert to person, place, and time, nontoxic-appearing, in no distress. HENT: Normocephalic, atraumatic. . Mucus membranes appear moist. EYES: Normal conjunctiva. Sclera non-icteric. EOMI. NECK: Supple. Full range of motion. No JVD. RESPIRATORY: Clear to auscultation. Normal work of breathing. CARDIAC: Regular rate, normal rhythm. Extremities warm and well perfused, 2+ radial pulses bilaterally; 2+ posterior tibialis pulses bilaterally. ABDOMEN: Soft, non-distended. No tenderness to palpation in all four quadrants. No rebound or guarding. No masses. Bowel sounds are + hypoactive in the LLQ, hyperactive in the LUQ. LOWER EXTREMITIES: Inspection of calves reveal equal size bilaterally. They are non-tender. No edema. No discoloration. NEURO: No gross focal motor deficits noted. Sensation in tact. CN II-XII krystal sly in tact. . SKIN: Rash not present. No jaundice noted. Significant lesions not present. PSYCH: Appropriate mood and affect. Cooperative. Principal Diagnosis SBO Discharge Exam General: No acute distress HEENT: Normocephalic atraumatic Neck: Normal visual inspection, negative JVD, trachea midline Cardiac: Regular rate and rhythm, normal S1, normal S2 is rubs or gallops, negative calf tenderness, negative pedal edema Respiratory: Clear to auscultation bilaterally, no wheezes, no rales, no rhonchi GI: Hyperactive bowel sounds, nontender, distended MSK: Moves all extremities Skin: No new rashes Neuro: Alert and oriented x4 Psych: Calm, cooperative Discharge Data Allergies Allergy/AdvReac Type Severity Reaction Status Date / Time Penicillins Allergy Severe AMOXICILLIN-ITCHY Verified 01/26/19 00:56 HIVES Consultations 01/26/19 03:07 ED Decision to Admit Stat 01/26/19 05:06 Consult General Surgery Routine Ordered Studies 01/26/19 00:49 CT abd pelvis IV con only Urgent Hospital Course (1) Small bowel obstruction: This is a 43-year-old female who states she was in her usual state of health earlier today. She had gone to work, participated in her exercise activities. She states that at lunchtime she prepared herself salad ate it without any issues but shortly thereafter developed acute epigastric abdominal pain. She also developed nonbloody emesis. She states she had 2 bowel mov ements this morning. She states she has a history of small bowel obstructions and indeed upon review of records she has had one 1 year ago. She has a history of appendectomy and cholecystectomy. She does not follow with a general surgeon or cardiovascular disease specialist. She does not take any medications. In the ED, CT abdomen pelvis was concerning for small bowel obstruction. It also showed a right mild to moderate hydroureteronephrosis. She is given 10 mg of IV Toradol as well as an antiemetic and fluids with good effect. Her labs are otherwise unremarkable, she has no kidney injury. She has remained afebrile and vitals have been stable. Abdominal pain likely secondary to small bowel obstruction versus ileus Patient received 10 mg of IV Toradol and antiemetic in the ED with good effect. She was admitted to [facility] overnight for observation made n.p.o. overnight, provided with IV hydration, IV Zofran as needed, IV morphine PRN and general surgery was consulted. General surgery felt she was improving from a clinical standpoint, and recommended advancing her diet to full liquids. A repeat KUB was obtained on the day of discharge, demonstrating decreased small bowel distention with a nonobstructive bowel gas pattern, persistent moderate right- sided hydro-utero nephrosis with dilatation of the right ureter extending to the level of the ureterovesicular junction, negative pneumoperitoneum. Patient was has been afebrile tolerating her diet, voiding, pain resolved, status post 2 bowel movements, and requesting discharge. Patient was advised on discharge that she should consider general surgery consult as an outpatient given her frequent recurrences of small bowel obstruction there may be an indication for diagnostic lap, for lysis of adhesion. #Incidental findings of right sided hydroureteronephrosis Admission abdomen and pelvis CT demonstrated Mild right hydroureteronephrosis to the level of the ureterovesical junction. No ureteral calculi identified and right-sided nephrolithiasis. This was confirmed the following day with a KUB demonstrating Persistent moderate right-sided hydroureteronephrosis with dilation of the right ureter extending to the level of the ureterovesicular junction. Given the patient has no current acute findings indicative of kidney stones, will defer further work-up to an outpatient. Patient should follow-up with outpatient urologist for evaluation and management FEN/GI: liquid diet DVT ppx: SCD's CODE STATUS: FULL as d/w pt. DISPO: Med/surg Total Time Total Time Spent Total Time Spent (In Minutes): <30 Discharge Plan Discharge Items Patient Disposition: Home - Self-Care Reason For Visit: SBO Discharge Diagnosis: SBO Condition: Good Discharge Goals: Decrease discomfort Activity: Resume your previous activity Activity Comment: as tolerated Non-emergency contact: Primary Care Provider Call non-emergency contact if: you have any medication questions, your symptoms worsen and your temperature is above 100.5 Follow-up/Referrals: Elroy Borja [Primary Care Provider] - 01/31/19 8:10 am (Please, follow up at Dr. Borja's office with her associate, Dr. Chaves, on ThursdayJanuary 31 at 8:10 am. *If you need to change this appointment, call their office at [phone]. ) Diet: Heart Healthy Addtl Provider Instructions: Care instructions: You were admitted to [facility] for treatment of small bowel obstruction. On admission a CT scan of the abdomen and pelvis was obtained demonstrating a small bowel obstruction type gas pattern. You were monitored overnight, seen by general surgery, clinically improved. A second follow-up KUB demonstrated a nonobstructive small gas pattern. Should any concerning symptoms develop such as inability to pass bowel movement, dehydration, fevers, chills, nausea, vomiting please return return to your primary care physician for further evaluation or the emergency department. -As we discussed it may be worth her time to see the general surgery consultation outpatient for evaluation of frequent recurrent small bowel obstructions. Especially given that these began occurring after your cholecystectomy -Your CT scan demonstrated incidental findings of right-sided hydroureteral nephrosis with associated nephrolithiasis. You do not demonstrate any symptoms related to nephrolithiasis, or kidney symptoms. We deferred further work-up to an outpatient. You should follow-up with a urologist in the near future to have this further evaluated and managed. We expect no acute complications from this. A discharge summary will be sent to your primary care physician to ensure continuity of care. Please bring this discharge summary with you to your next office appointment so that your provider can review it at that time. Follow-up appointments: - Keep all your follow-up appointments as already scheduled. If you cannot make an appointment, notify your provider. - Please call to request a follow-up appointment with your primary care physician within one week of discharge. Please let us know if you are unable to obtain an appointment Medications: - Your medication list has been reviewed and reconciled upon discharge to ensure accuracy and continuity of care. - You are provided with a list of all your current medications at this time. Please review this list closely and make note of any changes. - Please take all of your medications exactly as prescribed. - Tell your primary care provider if you cannot afford your medications. - Call your primary care provider if you are having any side effects or any other problems. - Call your primary care provider before taking any over the counter medications or supplements, including herbals and vitamins, because some of these may interact with your current medications and/or make your symptoms worse. Symptoms: Please call your primary care provider for symptoms including, but not limited to: fevers (temperatures greater than 100.4), chills, intractable nausea or vomiting, diarrhea, rash, shortness of breath, bleeding, pain, or if you experience any worsening of the symptoms that brought you to the hospital. For EMERGENCY and VERY SERIOUS health-related issues, such as chest pain, shortness of breath, or sudden onset of the symptoms that brought you to the hospital, you may need to call 911 or go directly to the Emergency Room It has been our privilege to take care of you during your hospital stay. And Above All Else Feel Better! Best Wishes, Ernie Madison MD PGY1 Resident, Family & Community Medicine [facility] Residency at [facility] - [address], [address] MC: [address] [place] [address], [place] [address] Prescriptions: Continued No Known Home Medications RF: 0 Stand-Alone Forms: My [facility]/Other Patient Handouts: Hydronephrosis Ch, Obstruction Sm Bowel Discharge Orders: Discharge Order (Routine); Ordered 01/26/19 Ordered By: Ernie Madison Admission Data Admit Date/Time: 01/26/19 04:08 Attending Provider: Jose Wakefield Admit Provider: Sparkle Hirsch Primary Care Provider: Elroy Borja Other Providers: Roberth Garcia ; Chris Pritchett Service: Surgical Services Other Interventions: Discharge Summary Assessment (RN) Last Done: 01/26/19 14:29 DC Date/Time DO NOT enter until pt leaves facility: 01/26/19 16:52 Supervising Physician Co-Signing Physician Notes I personally examined the patient and verified all kohli points of history and exam, discussed case, and agree with decision making with Dr Madison. Feeling better, eating better. No belly pain. Has had this happen multiple times. Surgery input appreciated. Vitals noted, in general she is awake and alert pleasant no distress. HEENT normocephalic atraumatic mucous members moist. Breathing unlabored no accessory muscle use good effort. Skin shows no rashes no pallor or icterus. Adhesional small bowel obstructionimprovedstable for home. Outpatient follow- up. Resident Activity Tracking Resident Involvement: Resident Care Provided Care Provided: Adult Hospital Medicine
== END 2019-01-26 16:52 | disposition home or self-care (01) | DRG 389 ==
LOC: ED 00:27 → SUATTDRO 04:08 → 3W 04:08

== ENCOUNTER 2021-01-18 20:26 | Inpatient (IN) ==
[2021-01-18] MEDS ORDERED: MoRPHine SULFATE 10 MG/ML CARP/VIAL IV STA (22:20)
[2021-01-18] MEDS ORDERED: ONDANSETRON INJ 2 MG/ML 2 ML VIAL IV STA (22:20)
[2021-01-18] MEDS ORDERED: SODIUM CHLORIDE 0.9% 1000ML 2,000 ML IV ONE (22:20)
--- NOTE | 2021-01-18 22:23 | Emergency Department Note ---
Impression & Plan SBO (small bowel obstruction), Hernia, internal, Leukocytosis ED Provider Note NAME: UMAIR MONTGOMERY AGE: 45 SEX: F : 1975 ARRIVES VIA: Walk-In INFORMANT: Patient ED PROVIDER(S): Jose Reid DO CHIEF COMPLAINT: Abdominal pain HPI: Patient is a 45-year-old female who presents ER for abdominal pain. She has associated nausea and vomiting with this. She has a previous cholecystectomy following which she has had small bowel obstruction due to complications. She notes this feels like her previous obstructions. She denies any dysuria, urgency, or frequency. No cough or runny nose. No loss of taste or smell. She notes her last bowel movement was today. Last menstrual period was in mid December. No other exacerbating or remitting factors. ROS: See above HPI for pertinent positives & negatives. A total of 10 systems reviewed and were otherwise negative. PAST MEDICAL HISTORY:See Below PAST SURGICAL HISTORY:See Below FAMILY HISTORY:See Below SOCIAL HISTORY:See Below HOME MEDICATIONS:See Below ALLERGIES:See Below VITALS:See Below PHYSICAL EXAMINATION: GENERAL: Sitting up in bed, alert, well appearing, well nourished, no distress, non-toxic EYE EXAM: normal conjunctiva. OROPHARYNX: no exudate, no erythema, lips, buccal mucosa, and tongue normal and mucous membranes are moist NECK: supple, no nuchal rigidity, no adenopathy, non-tender LUNGS: Clear to auscultation. Normal chest wall mechanics HEART: no murmurs, S1 normal and S2 normal ABDOMEN: Mild diffuse abdominal pain, non-tender, normo-active bowel sounds, no masses, no rebound or guarding. BACK: Back is symmetrical on inspection and there is no deformity, no midline tenderness, no CVA tenderness. SKIN: no rashes and no bruising UPPER EXTREMITIES: upper extremities are grossly normal. LOWER EXTREMITIES: No pitting edema. NEURO EXAM: Normal sensorium, cranial nerves II-XII grossly intact, normal speech, no gross weakness of arms, no gross weakness of legs. MEDICAL DECISION MAKING: Patient is a 45-year-old female who presents the ER for abdominal pain associate with nausea vomiting. Pain feels exactly her previous bowel obstructions. IV was established blood work obtained. Labs show mild leukocytosis of 13,000. No significant anemia. BMP with mild hypokalemia. LFTs bilirubin was unremarkable. Lipase was normal. hCG was negative. UA was clean. Covid pending. CT abdomen pelvis does show early or partial small bowel obstruction with clustering of dilated small bowel loops in the right upper and mid abdomen suggestive of an internal hernia. There is mild fat stranding surrounding dilated loops of bowels in the right mid belly. This was discussed with Dr. Meagan Vo who is on-call for general surgery. She recommended admission to hospitalist and they will follow. Patient had no vomiting while in the ER. She was given IV fluids and narcotics. Triage Nursing notes reviewed. Limited review of prior medical records performed Vital Signs: reviewed and remarkable for no significant abnormalities Differential diagnosis: Differential diagnoses includes but is not limited to gastritis, peptic ulcer disease, GERD, gallbladder disease, pancreatitis, small bowel obstruction, acute coronary syndrome, pericarditis, ischemic bowel, irritable bowel disease, irritable bowel syndrome, appendicitis, diverticulitis, malignancy, hernia, urinary tract infection, torsion, perforation, trauma, infectious. ER treatment provided: See below Diagnostics interpreted by me: ECG: none Cardiac Monitoring: An order was placed for continuous cardiac monitoring. The monitor shows a rate of 62 with sinus rhythm. Laboratory studies: As stated above and show below. Imaging studies: As discussed above Consultation(s): Discussed with Roberth Benoit for admission Discussed with Meagan Vo who recommended admission to hospitalist and they will follow. Procedures: none Critical Care: None Past Med/Surg History Medical History (Updated 01/19/21 @ 01:37 by Jose Reid DO) Kidney cysts Kidney stones Pulmonary embolism Small bowel obstruction Surgical History History of cholecystectomy Hx of appendectomy Social History Smoking Status: Never smoker Hx Alcohol Use: No Hx Substance Use: No Preferred Language: Iranian Communication Ability: Effective [employer] Required: No Beliefs That Will Affect Care: None Current Living Situation: Spouse Feels Safe at Home: Yes Assistive Devices: None Allergies Allergies Allergy/AdvReac Type Severity Reaction Status Date / Time Penicillins Allergy Severe AMOXICILLIN-ITCHY Verified 01/26/19 00:56 HIVES Home Meds Home Medications Medication Instructions Recorded Confirmed No Known Home Medications 01/26/19 01/26/19 Results & Data (ED) Vital Signs Vital Signs - 24 hr 01/18/21 20:44 01/18/21 23:18 01/19/21 01:31 Temperature 36.2 C L Temperature Source Temporal Artery Scan Pulse Rate 88 79 Pulse Rate [Apical] 65 Pulse Rhythm Regular Pulse Strength Normal Respiratory Rate 20 24 18 Respiratory Effort / Characteristics Non-Labored Spontaneous Non-Labored Spontaneous Respiratory Depth Normal Normal Respiratory Pattern Regular Regular Blood Pressure 100/79 106/46 L Blood Pressure [Left Arm] 163/109 H Blood Pressure Mean 86 66 Blood Pressure Mean [Left Arm] 127 Blood Pressure Position [Left Arm] Semi-fowlers Pulse Oximetry 98 97 97 Oxygen Delivery Method Room Air Room Air Sepsis Recent Fever Within 48 Hours No Sepsis New/Unexplained Change in Mental Status No Sepsis Action Taken by Nursing No Action Required Laboratory Data Result diagrams: 01/18/21 22:15 01/18/21 22:15 Lab Results 01/18/21 01/18/21 01/18/21 Range/Units 22:15 22:15 22:15 WBC 13.05 H (4.8-10.8) K/uL RBC 4.91 (4.2-5.4) M/uL Hgb 15.2 (12.0-16.0) g/dL Hct 44.3 (37-47) % MCV 90.2 (80-100) fL MCH 31.0 (25-34) pg MCHC 34.3 (32-36) g/dL RDW Std Deviation 43.7 (36.4-46.3) fL RDW Coeff of Lissette 13.2 (11.5-14.5) % Plt Count 281 (130-400) K/uL MPV 10.2 (7.4-10.4) fL Immature Gran % (Auto) 0.2 % Neut % (Auto) 73.0 % Lymph % (Auto) 19.3 % [place] % (Auto) 6.1 % Eos % (Auto) 1.2 % Baso % (Auto) 0.2 % Neut # (Auto) 9.53 H (1.4-6.5) K/uL Lymph # (Auto) 2.52 (1.2-3.4) K/uL [place] # (Auto) 0.79 H (0.11-0.59) K/uL Eos # (Auto) 0.16 (0-0.5) K/uL Baso # (Auto) 0.02 (0-0.2) K/uL Immature Gran # (Auto) 0.03 H (0.00-0.02) K/uL Sodium 138 (136-145) mmol/L Potassium 3.4 L (3.5-5.1) mmol/L Chloride 104 (98-107) mmol/L Carbon Dioxide 29 (21-32) mmol/L Anion Gap 5.0 (3-11) BUN 15 (7-18) mg/dl Creatinine 0.73 (0.6-1.2) mg/dl Est Cr Clr Drug Dosing 99.9 ml/min Est GFR ( Amer) 116.1 ml/min Est GFR (Non-Af Amer) 100.2 ml/min BUN/Creatinine Ratio 20.0 (10-20) Glucose 104 H (70-99) mg/dl Calcium 9.3 (8.5-10.1) mg/dl Total Bilirubin 0.7 (0.2-1) mg/dl AST 16 (15-37) U/L ALT 24 (12-78) U/L Alkaline Phosphatase 46 (45-117) U/L Total Protein 8.5 H (6.4-8.2) gm/dl Albumin 4.2 (3.4-5.0) gm/dl Globulin 4.3 H (2.5-4.0) gm/dl Albumin/Globulin Ratio 1.0 (0.9-2) Lipase 131 (73-393) U/L HCG, Qual Negative (Negative) Urine Color Urine Appearance (Clear) Urine pH (4.5-7.5) Ur Specific [place] (1.000-1.030) Urine Protein (Negative) Urine Glucose (UA) (Negative) Urine Ketones (Negative) Urine Blood (Negative) Urine Nitrite (Negative) Urine Bilirubin (Negative) Urine Urobilinogen (Negative) Ur Leukocyte Esterase (Negative) Urine WBC (Auto) (0-5) /hpf Urine RBC (Auto) (0-4) /hpf U Hyaline Cast (Auto) (0-5) /lpf U Epithel Cells (Auto) (0-5) /lpf Urine Bacteria (Auto) (Negative) COVID-19 Eval Order 07/16/21 07/17/21 Range/Units 23:27 00:38 WBC (4.8-10.8) K/uL RBC (4.2-5.4) M/uL Hgb (12.0-16.0) g/dL Hct (37-47) % MCV (80-100) fL MCH (25-34) pg MCHC (32-36) g/dL RDW Std Deviation (36.4-46.3) fL RDW Coeff of Lissette (11.5-14.5) % Plt Count (130-400) K/uL MPV (7.4-10.4) fL Immature Gran % (Auto) % Neut % (Auto) % Lymph % (Auto) % [place] % (Auto) % Eos % (Auto) % Baso % (Auto) % Neut # (Auto) (1.4-6.5) K/uL Lymph # (Auto) (1.2-3.4) K/uL [place] # (Auto) (0.11-0.59) K/uL Eos # (Auto) (0-0.5) K/uL Baso # (Auto) (0-0.2) K/uL Immature Gran # (Auto) (0.00-0.02) K/uL Sodium (136-145) mmol/L Potassium (3.5-5.1) mmol/L Chloride (98-107) mmol/L Carbon Dioxide (21-32) mmol/L Anion Gap (3-11) BUN (7-18) mg/dl Creatinine (0.6-1.2) mg/dl Est Cr Clr Drug Dosing ml/min Est GFR ( Amer) ml/min Est GFR (Non-Af Amer) ml/min BUN/Creatinine Ratio (10-20) Glucose (70-99) mg/dl Calcium (8.5-10.1) mg/dl Total Bilirubin (0.2-1) mg/dl AST (15-37) U/L ALT (12-78) U/L Alkaline Phosphatase (45-117) U/L Total Protein (6.4-8.2) gm/dl Albumin (3.4-5.0) gm/dl Globulin (2.5-4.0) gm/dl Albumin/Globulin Ratio (0.9-2) Lipase (73-393) U/L HCG, Qual (Negative) Urine Color Yellow Urine Appearance Clear (Clear) Urine pH 5.0 (4.5-7.5) Ur Specific [place] 1.024 (1.000-1.030) Urine Protein Negative (Negative) Urine Glucose (UA) Negative (Negative) Urine Ketones 1+ H (Negative) Urine Blood 1+ H (Negative) Urine Nitrite Negative (Negative) Urine Bilirubin Negative (Negative) Urine Urobilinogen Negative (Negative) Ur Leukocyte Esterase Negative (Negative) Urine WBC (Auto) 1-5 (0-5) /hpf Urine RBC (Auto) 0-4 (0-4) /hpf U Hyaline Cast (Auto) 1-5 (0-5) /lpf U Epithel Cells (Auto) 10-20 H (0-5) /lpf Urine Bacteria (Auto) Negative (Negative) COVID-19 Eval Order Covid19 at [facility] Administered Medications Acetaminophen (Ofirmev) 1,000 mg in 100 mls @ 400 mls/hr IV Q8H PRN PRN Reason: Pain or Fever Stop: 01/22/21 01:08 Last Admin: 01/19/21 01:30 Dose: 400 mls/hr Documented by: [id number] Discontinued Medications Sodium Chloride (Nss 1000ml) 2,000 mls @ 999 mls/hr IV .Q2H1M ONE Stop: 01/19/21 00:20 Last Infusion: 01/19/21 00:27 Dose: 0 mls/hr Documented by: [id number] Admin: 01/18/21 22:26 Dose: 999 mls/hr Documented by: [id number] Ioversol (Optiray 320 100ml) 94 ml IV ONCE ONE Stop: 01/18/21 23:21 Last Admin: 01/18/21 23:20 Dose: 94 ml Documented by: [id number] Morphine Sulfate (Morphine Sulfate 10 Mg/Ml Carp/Vial) 6 mg IV NOW STA Stop: 01/18/21 22:21 Last Admin: 01/18/21 22:26 Dose: 6 mg Documented by: [id number] Ondansetron HCl (Ondansetron Inj 2 Mg/Ml 2 Ml Vial) 4 mg IV NOW STA Stop: 01/18/21 22:21 Last Admin: 01/18/21 22:26 Dose: 4 mg Documented by: [id number] Discharge Plan Visit Data Chief Complaint: Abdominal Pain Stated Complaint: ABDOMINAL PAIN, VOMITING ED Provider: Jose Reid Discharge Problem: SBO (small bowel obstruction), Hernia, internal, Leukocytosis Patient Disposition: Admitted As Inpatient Forms Stand Alone Forms: [facility] Prescriptions Prescriptions: No Action No Known Home Medications RF: 0 Referrals Referrals: Elroy Borja [Primary Care Provider] -
[2021-01-18 22:30] LABS: Basophils # (auto) 0.02 K/uL (0-0.2); Basophils % (auto) 0.2 %; Eosinophils # (auto) 0.16 K/uL (0-0.5); Eosinophils % (auto) 1.2 %; Hematocrit (blood only) 44.3 % (37-47); Hemoglobin 15.2 g/dL (12.0-16.0); Immature Granulocytes # (auto) 0.03 K/uL (0.00-0.02); Immature Granulocytes % (auto) 0.2 %; Lymphocytes # (auto) 2.52 K/uL (1.2-3.4); Lymphocytes % (auto) 19.3 %; Mean Corpuscular Hgb Conc 34.3 g/dL (32-36); Mean Corpuscular Volume 90.2 fL (80-100); Mean Platelet Volume 10.2 fL (7.4-10.4); Monocytes # (auto) 0.79 K/uL (0.11-0.59); Monocytes % (auto) 6.1 %; Neutrophils # (auto) 9.53 K/uL (1.4-6.5); Platelet Count 281 K/uL (130-400); RDW Coefficient of Variation 13.2 % (11.5-14.5); RDW Standard Deviation 43.7 fL (36.4-46.3); Red Blood Count 4.91 M/uL (4.2-5.4); White Blood Count 13.05 K/uL (4.8-10.8)
[2021-01-18 22:48] LABS: Albumin Level 4.2 gm/dl (3.4-5.0); Calcium 9.3 mg/dl (8.5-10.1); Creatinine Clr Calc Pharmacy 99.9 ml/min; Est GFR (African American) 116.1 ml/min; Est GFR (Non-African American) 100.2 ml/min; Potassium 3.4 mmol/L (3.5-5.1)
[2021-01-18 22:51] LABS: Bilirubin,Total 0.7 mg/dl (0.2-1); Globulin 4.3 gm/dl (2.5-4.0); Total Protein 8.5 gm/dl (6.4-8.2)
[2021-01-18 23:04] LABS: Pregnancy Test, Serum Negative (Negative)
[2021-01-18] MEDS ORDERED: OPTIRAY 320 100ml IV ONE (23:20)
[2021-01-19 00:30] LABS: Appearance Urine Clear (Clear); Bacteria Urine Automated Negative (Negative); Bilirubin Urine Negative (Negative); Blood Urine 1+ (Negative); Color Urine Yellow; Glucose Urine UA Negative (Negative); Ketones Urine 1+ (Negative); Leukocyte Esterase Urine Negative (Negative); Nitrite Urine Negative (Negative); Protein Urine Negative (Negative); RBC Urine Automated 0-4 /hpf (0-4); Specific Gravity Urine 1.024 (1.000-1.030); Urobilinogen Urine Negative (Negative)
--- NOTE | 2021-01-19 01:10 | History & Physical Report ---
Date of Service January 19, 2021 Assessment & Plan (1) SBO (small bowel obstruction): Plan: Small bowel obstruction/internal hernia- Case was discussed over the phone by the ED with surgery. NPO NSS + KCl 20 mEq 100 mils per hour Acetaminophen 1 g IV every 8 hours as needed mild pain or fever Toradol 15 mg IV every 6 hours as needed moderate pain Famotidine 20 mg IV every 12 hours Zofran 4 mg IV every 6 hours as needed Cipro 400 mg IV every 12 hours Metronidazole 500 mg IV every 8 hours Consult general surgery (2) Hernia, internal: Plan: See above History of Present Illness Chief Complaint: The patient presents to the emergency department within a few hours of development of abdominal discomfort that she recognizes similar to previous small bowel obstructions, however, with the difference at this point being that the intensity of the pain came on much more quickly Primary Care Provider: Elroy Borja The patient is a 45-year-old female with a past medical history of recurrent small bowel obstructions, hydroureteronephrosis, history of cholecystectomy and appendectomy. She presents with more acute onset of symptoms than usual that are suggestive of small bowel obstructions. CT scan of abdomen /pelvis did confirm a partial small bowel obstruction, along with an internal hernia, that surgery was made aware of by the ED physician and she felt was acceptable to be admitted to the medicine service overnight. Allergies Allergy/AdvReac Type Severity Reaction Status Date / Time Penicillins Allergy Severe AMOXICILLIN-ITCHY Verified 01/26/19 00:56 HIVES Home Medications Medication Instructions Recorded Confirmed Type No Known Home Medications 01/26/19 01/26/19 History Past Med/Surg History Medical History (Updated 01/19/21 @ 01:37 by Jose Reid DO) Kidney cysts Kidney stones Pulmonary embolism Small bowel obstruction Surgical History History of cholecystectomy Hx of appendectomy Social History Smoking Status: Never smoker Hx Alcohol Use: No Hx Substance Use: No Preferred Language: Uzbek Communication Ability: Effective Reconditioner Required: No Beliefs That Will Affect Care: None Current Living Situation: Spouse Other Information That Helps Us Care for You: No Feels Safe at Home: Yes Safety Concerns: Feels Safe At This Time Assistive Devices: None Review of Systems Review of Systems: The patient denies chest pain, palpitations, shortness of breath, dyspnea on exertion, cough, lower extremity swelling, sore throat, fevers, chills, sweats, vomiting, diarrhea , constipation, blood in urine or stool, dysuria, urinary frequency or urgency, lightheadedness, dizziness, headache, memory loss, loss of consciousness, rash, abnormal bruising or bleeding, imbalance, focal or generalized weakness, numbness or tingling in arms or legs, generalized arthralgias or myalgias, back or neck pain, or night sweats. The review of systems is otherwise negative other than for that already noted above, and at least 10 systems have been reviewed. Physical Exam Physical Exam: The patient is awake, alert and oriented 3, well developed and well nourished, normocephalic and atraumatic, lying in bed and in no acute distress. HEENT--PERRL, EOMI, mucous membranes and oropharynx dry. Neck--supple. No JVD. No bruits. Thyroid normal, trachea midline, no adenopathy. Heart--normal S1 and S2. No murmurs, rubs or gallops. Lungs--clear bilaterally, no respiratory distress, no accessory muscle use. Abdomen--decreased bowel sounds, soft. Mild generalized tenderness and distention. Mildly tympanitic Extremities--no cyanosis or clubbing. No edema. Dermatologic--skin is normal Neurologic--cranial nerves II through XII grossly intact. Rheumatologic--limited exam Psychiatric--normal affect. Results & Data Results & Data ([facility]) Vital Signs (Past 12 Hours) Vital Signs Temp Pulse Resp BP Pulse Ox 01/18/21 23:18 79 24 106/46 L 97 01/18/21 20:44 97.2 F L 88 20 100/79 98 Laboratory Results Laboratory Results WBC 13.05 K/uL (4.8-10.8) H 01/18/21 22:15 RBC 4.91 M/uL (4.2-5.4) 01/18/21 22:15 Hgb 15.2 g/dL (12.0-16.0) 01/18/21 22:15 Hct 44.3 % (37-47) 01/18/21 22:15 MCV 90.2 fL (80-100) 07/16/21 22:15 MCH 31.0 pg (25-34) 01/18/21 22:15 MCHC 34.3 g/dL (32-36) 01/18/21 22:15 RDW Std Deviation 43.7 fL (36.4-46.3) 01/18/21 22:15 RDW Coeff of Lissette 13.2 % (11.5-14.5) 01/18/21 22:15 Plt Count 281 K/uL (130-400) 01/18/21 22:15 MPV 10.2 fL (7.4-10.4) 01/18/21 22:15 Immature Gran % (Auto) 0.2 % 01/18/21 22:15 Neut % (Auto) 73.0 % 01/18/21 22:15 Lymph % (Auto) 19.3 % 01/18/21 22:15 [place] % (Auto) 6.1 % 01/18/21 22:15 Eos % (Auto) 1.2 % 01/18/21 22:15 Baso % (Auto) 0.2 % 01/18/21 22:15 Neut # (Auto) 9.53 K/uL (1.4-6.5) H 01/18/21 22:15 Lymph # (Auto) 2.52 K/uL (1.2-3.4) 01/18/21 22:15 [place] # (Auto) 0.79 K/uL (0.11-0.59) H 01/18/21 22:15 Eos # (Auto) 0.16 K/uL (0-0.5) 01/18/21 22:15 Baso # (Auto) 0.02 K/uL (0-0.2) 01/18/21 22:15 Immature Gran # (Auto) 0.03 K/uL (0.00-0.02) H 01/18/21 22:15 Sodium 138 mmol/L (136-145) 01/18/21 22:15 Potassium 3.4 mmol/L (3.5-5.1) L 01/18/21 22:15 Chloride 104 mmol/L (98-107) 01/18/21 22:15 Carbon Dioxide 29 mmol/L (21-32) 01/18/21 22:15 Anion Gap 5.0 (3-11) 01/18/21 22:15 BUN 15 mg/dl (7-18) 01/18/21 22:15 Creatinine 0.73 mg/dl (0.6-1.2) 01/18/21 22:15 Est Cr Clr Drug Dosing 99.9 ml/min 01/18/21 22:15 Est GFR ( Amer) 116.1 ml/min 01/18/21 22:15 Est GFR (Non-Af Amer) 100.2 ml/min 01/18/21 22:15 BUN/Creatinine Ratio 20.0 (10-20) 01/18/21 22:15 Glucose 104 mg/dl (70-99) H 01/18/21 22:15 Calcium 9.3 mg/dl (8.5-10.1) 01/18/21 22:15 Total Bilirubin 0.7 mg/dl (0.2-1) 01/18/21 22:15 AST 16 U/L (15-37) 01/18/21 22:15 ALT 24 U/L (12-78) 01/18/21 22:15 Alkaline Phosphatase 46 U/L (45-117) 01/18/21 22:15 Total Protein 8.5 gm/dl (6.4-8.2) H 01/18/21 22:15 Albumin 4.2 gm/dl (3.4-5.0) 01/18/21 22:15 Globulin 4.3 gm/dl (2.5-4.0) H 01/18/21 22:15 Albumin/Globulin Ratio 1.0 (0.9-2) 01/18/21 22:15 Lipase 131 U/L (73-393) 01/18/21 22:15 HCG, Qual Negative (Negative) 01/18/21 22:15 Urine Color Yellow 01/18/21 23:27 Urine Appearance Clear (Clear) 01/18/21 23:27 Urine pH 5.0 (4.5-7.5) 01/18/21 23:27 Ur Specific [place] 1.024 (1.000-1.030) 01/18/21 23:27 Urine Protein Negative (Negative) 01/18/21 23:27 Urine Glucose (UA) Negative (Negative) 01/18/21 23:27 Urine Ketones 1+ (Negative) H 01/18/21 23:27 Urine Blood 1+ (Negative) H 01/18/21 23:27 Urine Nitrite Negative (Negative) 01/18/21 23:27 Urine Bilirubin Negative (Negative) 01/18/21 23:27 Urine Urobilinogen Negative (Negative) 01/18/21 23:27 Ur Leukocyte Esterase Negative (Negative) 01/18/21 23:27 Urine WBC (Auto) 1-5 /hpf (0-5) 01/18/21 23:27 Urine RBC (Auto) 0-4 /hpf (0-4) 01/18/21 23:27 U Hyaline Cast (Auto) 1-5 /lpf (0-5) 01/18/21 23:27 U Epithel Cells (Auto) 10-20 /lpf (0-5) H 01/18/21 23:27 Urine Bacteria (Auto) Negative (Negative) 01/18/21 23:27 COVID-19 Eval Order Covid19 at [facility] 01/19/21 00:38 SARS-CoV-2 (PCR) NEGATIVE (Negative) 01/19/21 00:38 Diagnostic Findings [facility] Patient: UMAIR MONTGOMERY (Female) : 77 Status: ER Date: 01/18/21 23:41 Room #: History: diffuse abd pain vomiting ? sbo, 94 ML OPTIRAY, NO APPENDIX Slices: [phone] Priors: Tech: Kulwinder John @ [id number] Exams: CT ABDOMEN & PELVIS With Contrast Contrast: IV Amt: 94 ML OPTIRAY Accession Numbers: [id number] Referring Physician: REFERRED SELF Preliminary Findings Only See Final Report For Complete Findings CT ABDOMEN & PELVIS With Contrast: Comparison: CT 01/26/2019 Multiple mildly dilated proximal to small bowel loops in the right upper and mid abdomen and left mid abdomen. Dilated bowel loops measure up to 3.2 cm in diameter. Distal small bowel loops are decompressed. There is small bowel feces sign. Exact transition point is difficult to identify but likely located in the right lower quadrant. The is fecal material in the cecum and ascending colon. More distal colon is decompressed. The findings are compatible with early or partial small bowel obstruction. Clustering of dilated small bowel loops in the right upper and mid abdomen is suggestive of internal hernia. There is mild fat stranding surrounding dilated bowel loops in the right abdomen. No pneumatosis intestinalis, pneumoperitoneum, or portal venous gas. Similar mild right hydroureteronephrosis without obstructive ureteral calculus visualized. Stable small nonobstructive calculus in lower pole of the right kidney. Similar positioning of intrauterine device somewhat low within the endometrial cavity. Radiologist: Desiree Gray M.D. Study ready at 23:56 and initial results transmitted at 00:08 *This report constitutes a preliminary interpretation only. Non-acute findings felt to be unrelated to the clinical presentation may not be discussed in this report. The study will be interpreted and a final report will be generated by the local Radiologist the following shift. To reach the hospital radiology department call [phone]. If a discrepancy is found between the preliminary and final interpretations of this study, please notify us via our Client Portal at [email or web address].You can also fax this report with a description of the discrepancy, or include the final report, to our daytime fax number [phone].If faxing, please indicate the severity of discrepancy using one of the following categories: [ ] 1 - Agree/Informational [ ] 2 - Unlikely to Affect Management [ ] 3 - Possible Eventual Change of Management [ ] 4 - Probable Immediate Change of Management For all other patient related information, please fax us at [phone]. [id number] Code Status & VTE Plan Code Status Full code VTE Prophylaxis Plan VTE Prophylaxis will be ordered: Yes PG Care Time/CCT Total # of Minutes Spent Total Time Spent with Patient: Total time spent is greater than 50% in coordination of care (as documented) at patient's floor/unit and/or counseling patient: Coding Level of Care Code 32984 Initial Inpt Care Lvl 2 Diagnoses SBO (small bowel obstruction) K56.609 Hernia, internal K45.8
[2021-01-19] MEDS: ACETAMINOPHEN 1,000 MG/100 ML VIAL IV PRN (01:30)
[2021-01-19] MEDS: ONDANSETRON INJ 2 MG/ML 2 ML VIAL IV PRN ×2 (03:45→10:16)
[2021-01-19] MEDS: KETOROLAC TROMETHAMINE 15 MG/ML VIAL IV PRN (03:45)
[2021-01-19] MEDS ORDERED: FAMOTIDINE 20 MG in SYRINGE 3 ML IV SCH (04:00)
[2021-01-19] MEDS: metroNIDAZOLE 500 MG/100 ML BAG IV SCH ×3 (04:53→20:42)
[2021-01-19] MEDS: NSS + 20MEQ KCL 20 MEQ/1,000 ML BAG IV SCH ×2 (04:53→18:23)
[2021-01-19] MEDS: CIPROFLOXACIN / D5W 400 MG/200 ML BAG IV SCH ×2 (06:11→17:08)
[2021-01-19 06:28] LABS: Basophils # (auto) 0.01 K/uL (0-0.2); Basophils % (auto) 0.1 %; Eosinophils # (auto) 0.01 K/uL (0-0.5); Eosinophils % (auto) 0.1 %; Hematocrit (blood only) 40.7 % (37-47); Hemoglobin 13.7 g/dL (12.0-16.0); Immature Granulocytes # (auto) 0.03 K/uL (0.00-0.02); Immature Granulocytes % (auto) 0.2 %; Lymphocytes # (auto) 1.43 K/uL (1.2-3.4); Mean Corpuscular Hemoglobin 29.8 pg (25-34); Mean Corpuscular Hgb Conc 33.7 g/dL (32-36); Mean Corpuscular Volume 88.5 fL (80-100); Monocytes % (auto) 4.9 %; Neutrophils # (auto) 12.11 K/uL (1.4-6.5); Neutrophils % (auto) 84.7 %; Platelet Count 281 K/uL (130-400); RDW Coefficient of Variation 13.3 % (11.5-14.5); RDW Standard Deviation 43.2 fL (36.4-46.3); White Blood Count 14.29 K/uL (4.8-10.8)
[2021-01-19 07:05] LABS: Albumin Level 3.5 gm/dl (3.4-5.0); BUN Creatinine Ratio 19.2 (10-20); Calcium 8.2 mg/dl (8.5-10.1); Creatinine Clr Calc Pharmacy 119.2 ml/min; Est GFR (African American) 127.8 ml/min; Est GFR (Non-African American) 110.3 ml/min
[2021-01-19 07:07] LABS: Albumin Globulin Ratio 0.9 (0.9-2); Bilirubin,Total 0.8 mg/dl (0.2-1); Globulin 3.7 gm/dl (2.5-4.0); Total Protein 7.2 gm/dl (6.4-8.2)
--- NOTE | 2021-01-19 07:16 | CT Scan Report ---
ABDOMEN AND PELVIS CT WITH IV CONTRAST CT DOSE: 940.00 mGy.cm HISTORY: diffuse abd pain vomiting ? sbo TECHNIQUE: Multiaxial CT images of the abdomen and pelvis were performed following the use of intrave nous contrast. A dose lowering technique was utilized adhering to the principles of ALARA. COMPARISON STUDY: Abdomen and pelvis CT 01/26/2019. FINDINGS: The lung bases are clear. No pneumoperitoneum. No pneumatosis. Cholecystectomy. Mild intrah epatic bile duct dilatation, unchanged. There is mild hepatic steatosis. The spleen, adrenal glands, and pancreas unremarkable. Stable 7 mm hypodense lesion within the left kidney. There is a 6 mm stone within the lower pole the right kidney. There is mild right hydroureteronephrosis, unchanged. No obs tructing stones identified. The bladder is decompressed. An intrauterine device appears in good posit ion. There is trace pelvic free fluid. A few colonic diverticula. No evidence for acute diverticuliti s. Multiple mildly dilated and thickened loops of small bowel within the right midabdomen. There is a ssociated mesenteric fluid at this location. There are also a few mildly dilated small bowel loops wi thin the left side of the abdomen. Distal ileal loops are decompressed. Exact transition point is dif ficult to identify but may be within the right midabdomen. Overall, this is slightly improved compare d the prior study and is consistent with a partial small bowel obstruction. A clustering of dilated s mall bowel bowel loops within the right upper quadrant could represent an internal hernia. IMPRESSION: 1. There again noted multiple mildly dilated and thickened loops of small bowel within the right mida bdomen with a few additional mildly dilated small bowel loops within the left side of the abdomen. A clear transition point is not identified. This has slightly improved compared to the prior study. The refore, this favors a partial small bowel obstruction. The clustered loops of bowel within the right upper quadrant with adjacent interloop fluid raise the possibility of an internal hernia. Surgical co nsultation recommended. 2. Right-sided nephrolithiasis. There is stable mild right hydroureteronephrosis to the level of the ureterovesical junction. However, no obstructing stones identified. 3. Additional findings as described above. ACT 112: Negative or not required by law. Electronically signed by: Jeremy Braxton M.D. 01/19/2021 7:15 AM
--- NOTE | 2021-01-19 08:23 | Hospitalist Progress Note ---
Date of Service January 19, 2021 Assessment & Plan (1) SBO (small bowel obstruction): Plan: Small bowel obstruction/internal hernia- patient with hx cholecystectomy (complicated by common duct injury) and appendectomy. CTAP: * 1. There again noted multiple mildly dilated and thickened loops of small bowel within the right midabdomen with a few additional mildly dilated small bowel loops within the left side of the abdomen. A clear transition point is not identified. This has slightly improved compared to the prior study. Therefore, this favors a partial small bowel obstruction. The clustered loops of bowel within the right upper quadrant with adjacent interloop fluid raise the possibility of an internal hernia. Surgical consultation recommended. * 2. Right-sided nephrolithiasis. There is stable mild right hydroureteronephrosis to the level of the ureterovesical junction. However, no obstructing stones identified. Case was discussed over the phone by the ED with surgery. NSS + KCl 20 mEq 100 mils per hour Acetaminophen 1 g IV every 8 hours as needed mild pain or fever Toradol 15 mg IV every 6 hours as needed moderate pain Famotidine 20 mg IV every 12 hours --> switched to protonix for better pain control Zofran 4 mg IV every 6 hours as needed -- added phenergan given nausea, emesis this morning. May need to consider NGT if n/v persists but will hold off for now. Will check gastric occult Alerted general surgery. WBC 14.2k, afebrile Cipro 400 mg IV every 12 hours Metronidazole 500 mg IV every 8 hours Consult general surgery -- appreciate recs. holding off on surgical intervention at this time --> Did alert of continued nausea/vomiting and pain 2/10. May need to consider intervention per note if pain returns, leukocytosis worsens. Will have them re-evaluate Continue NPO until bowel function returns Frequent ambulation encouraged K 3.4 --> replacement ordered and repeat 4.0. Mag 2.0 25 Vit D pending given Ca 8.2 normal albumin. Ordered 1gm IV calcium Lipase wnl Monitor AM labs (2) Hernia, internal: Plan: See above Diarrhea -- Now with SBO/hernia as above but chronic diarrhea since her cholecystectomy --> could consider cholestyramine at discharge if patient agreeable DVT Proph SCDs. Added Heparin SQ as no plans for surgery at this time. Will hold if changes Dispo: continued inpatient stay Admission and Anticipated Discharge Date Admission Date: January 19, 2021 Subjective BRIDGE NOTE: ADMITTED AFTER MIDNIGHT Patient seen this afternoon. Had been doing well without emesis for quite a number of hours but recently with ~600cc brown/bile emesis. Zofran not effeective and will order dose of phenergan. Pain 2/10 to abdomen, improved from "off the 10 scale" prior to admission. Discussed to alert if further n/v or worsening abd pain and will have general surgery re-eval. Passing gas but no BM. Did about 15 laps in the halls today and wanting to rest -- to be at family birthday constitution party today and slightly disheartened to be in the hospital/ She states typically she needs 2-3 days IV fluids and medication to have these episode resolved, last one occuring last year. No fever, chills, chest pain, shortness of breath, dysuria reported at this time. Chronic kidney stones but has not had f/u with Urology or Nephrology in the [facility] Rec'd to discuss with her PCP in the future as she does get episodes of pain and then they go away, possibly from passing of a stone. Not on any medications outpatient and states "I don't like drugs". Physical Exam Constitutional: WD/WN, vitals as above Eyes: PERRL, conjunctivae normal, anicteric sclerae ENMT: external ear and nose normal, oropharynx normal Neck: normal visual inspection Respiratory: normal respiratory effort, lungs clear to auscultation Cardiovascular: RRR, no murmur, no edema Gastrointestinal (Abdomen): Inspection/Auscultation: abdomen normal to inspection, + abdomen distended (mild), + abdominal surgical scar (right subcostal) and + hypoactive bowel sounds Percussion/Palpation: abdomen soft; abdomen nontender and no guarding Musculoskeletal: Head/Neck/Chest: normocephalic and head atraumatic Extremities: extremities normal to inspection Neurologic: CN's II-XI intact bilaterally and awake; no focal motor deficits Psychiatric: A+Ox3, euthymic affect Results & Data Results & Data ([facility]) Vital Signs (Past 12 Hours) Vital Signs Temp Pulse Pulse Pulse Resp BP BP 01/19/21 07:41 36.7 C 71 16 133/87 01/19/21 05:01 125/85 01/19/21 03:28 36.7 C 87 16 175/125 H 01/19/21 02:32 60 18 145/85 H 01/19/21 01:31 65 18 163/109 H 01/18/21 23:18 79 24 106/46 L 01/18/21 20:44 36.2 C L 88 20 100/79 Pulse Ox 01/19/21 07:41 99 01/19/21 05:01 01/19/21 03:28 97 01/19/21 02:32 97 01/19/21 01:31 97 01/18/21 23:18 97 01/18/21 20:44 98 Laboratory Results 01/19/21 01/19/21 01/19/21 Range/Units 05:56 05:56 00:38 WBC 14.29 H (4.8-10.8) K/uL RBC 4.60 (4.2-5.4) M/uL Hgb 13.7 (12.0-16.0) g/dL Hct 40.7 (37-47) % MCV 88.5 (80-100) fL MCH 29.8 (25-34) pg MCHC 33.7 (32-36) g/dL RDW Std Deviation 43.2 (36.4-46.3) fL RDW Coeff of Lissette 13.3 (11.5-14.5) % Plt Count 281 (130-400) K/uL MPV 10.0 (7.4-10.4) fL Immature Gran % (Auto) 0.2 % Neut % (Auto) 84.7 % Lymph % (Auto) 10.0 % Metcalfe % (Auto) 4.9 % Eos % (Auto) 0.1 % Baso % (Auto) 0.1 % Neut # (Auto) 12.11 H (1.4-6.5) K/uL Lymph # (Auto) 1.43 (1.2-3.4) K/uL Metcalfe # (Auto) 0.70 H (0.11-0.59) K/uL Eos # (Auto) 0.01 (0-0.5) K/uL Baso # (Auto) 0.01 (0-0.2) K/uL Immature Gran # (Auto) 0.03 H (0.00-0.02) K/uL Sodium 136 (136-145) mmol/L Potassium 4.0 D (3.5-5.1) mmol/L Chloride 106 (98-107) mmol/L Carbon Dioxide 27 (21-32) mmol/L Anion Gap 3.0 (3-11) BUN 12 (7-18) mg/dl Creatinine 0.61 (0.6-1.2) mg/dl Est Cr Clr Drug Dosing 119.2 ml/min Est GFR ( Amer) 127.8 ml/min Est GFR (Non-Af Amer) 110.3 ml/min BUN/Creatinine Ratio 19.2 (10-20) Glucose 114 H (70-99) mg/dl Calcium 8.2 L (8.5-10.1) mg/dl Total Bilirubin 0.8 (0.2-1) mg/dl AST 14 L (15-37) U/L ALT 22 (12-78) U/L Alkaline Phosphatase 41 L (45-117) U/L Total Protein 7.2 (6.4-8.2) gm/dl Albumin 3.5 (3.4-5.0) gm/dl Globulin 3.7 (2.5-4.0) gm/dl Albumin/Globulin Ratio 0.9 (0.9-2) Lipase (73-393) U/L HCG, Qual (Negative) Urine Color Urine Appearance (Clear) Urine pH (4.5-7.5) Ur Specific [place] (1.000-1.030) Urine Protein (Negative) Urine Glucose (UA) (Negative) Urine Ketones (Negative) Urine Blood (Negative) Urine Nitrite (Negative) Urine Bilirubin (Negative) Urine Urobilinogen (Negative) Ur Leukocyte Esterase (Negative) Urine WBC (Auto) (0-5) /hpf Urine RBC (Auto) (0-4) /hpf U Hyaline Cast (Auto) (0-5) /lpf U Epithel Cells (Auto) (0-5) /lpf Urine Bacteria (Auto) (Negative) COVID-19 Eval Order SARS-CoV-2 (PCR) NEGATIVE (Negative) 01/19/21 01/18/21 01/18/21 Range/Units 00:38 23:27 22:15 WBC (4.8-10.8) K/uL RBC (4.2-5.4) M/uL Hgb (12.0-16.0) g/dL Hct (37-47) % MCV (80-100) fL MCH (25-34) pg MCHC (32-36) g/dL RDW Std Deviation (36.4-46.3) fL RDW Coeff of Lissette (11.5-14.5) % Plt Count (130-400) K/uL MPV (7.4-10.4) fL Immature Gran % (Auto) % Neut % (Auto) % Lymph % (Auto) % [place]calfe % (Auto) % Eos % (Auto) % Baso % (Auto) % Neut # (Auto) (1.4-6.5) K/uL Lymph # (Auto) (1.2-3.4) K/uL Metcalfe # (Auto) (0.11-0.59) K/uL Eos # (Auto) (0-0.5) K/uL Baso # (Auto) (0-0.2) K/uL Immature Gran # (Auto) (0.00-0.02) K/uL Sodium (136-145) mmol/L Potassium (3.5-5.1) mmol/L Chloride (98-107) mmol/L Carbon Dioxide (21-32) mmol/L Anion Gap (3-11) BUN (7-18) mg/dl Creatinine (0.6-1.2) mg/dl Est Cr Clr Drug Dosing ml/min Est GFR ( Amer) ml/min Est GFR (Non-Af Amer) ml/min BUN/Creatinine Ratio (10-20) Glucose (70-99) mg/dl Calcium (8.5-10.1) mg/dl Total Bilirubin (0.2-1) mg/dl AST (15-37) U/L ALT (12-78) U/L Alkaline Phosphatase (45-117) U/L Total Protein (6.4-8.2) gm/dl Albumin (3.4-5.0) gm/dl Globulin (2.5-4.0) gm/dl Albumin/Globulin Ratio (0.9-2) Lipase (73-393) U/L HCG, Qual Negative (Negative) Urine Color Yellow Urine Appearance Clear (Clear) Urine pH 5.0 (4.5-7.5) Ur Specific [place] 1.024 (1.000-1.030) Urine Protein Negative (Negative) Urine Glucose (UA) Negative (Negative) Urine Ketones 1+ H (Negative) Urine Blood 1+ H (Negative) Urine Nitrite Negative (Negative) Urine Bilirubin Negative (Negative) Urine Urobilinogen Negative (Negative) Ur Leukocyte Esterase Negative (Negative) Urine WBC (Auto) 1-5 (0-5) /hpf Urine RBC (Auto) 0-4 (0-4) /hpf U Hyaline Cast (Auto) 1-5 (0-5) /lpf U Epithel Cells (Auto) 10-20 H (0-5) /lpf Urine Bacteria (Auto) Negative (Negative) COVID-19 Eval Order Covid19 at [facility] SARS-CoV-2 (PCR) (Negative) 01/18/21 01/18/21 Range/Units 22:15 22:15 WBC 13.05 H (4.8-10.8) K/uL RBC 4.91 (4.2-5.4) M/uL Hgb 15.2 (12.0-16.0) g/dL Hct 44.3 (37-47) % MCV 90.2 (80-100) fL MCH 31.0 (25-34) pg MCHC 34.3 (32-36) g/dL RDW Std Deviation 43.7 (36.4-46.3) fL RDW Coeff of Lissette 13.2 (11.5-14.5) % Plt Count 281 (130-400) K/uL MPV 10.2 (7.4-10.4) fL Immature Gran % (Auto) 0.2 % Neut % (Auto) 73.0 % Lymph % (Auto) 19.3 % Metcalfe % (Auto) 6.1 % Eos % (Auto) 1.2 % Baso % (Auto) 0.2 % Neut # (Auto) 9.53 H (1.4-6.5) K/uL Lymph # (Auto) 2.52 (1.2-3.4) K/uL Metcalfe # (Auto) 0.79 H (0.11-0.59) K/uL Eos # (Auto) 0.16 (0-0.5) K/uL Baso # (Auto) 0.02 (0-0.2) K/uL Immature Gran # (Auto) 0.03 H (0.00-0.02) K/uL Sodium 138 (136-145) mmol/L Potassium 3.4 L (3.5-5.1) mmol/L Chloride 104 (98-107) mmol/L Carbon Dioxide 29 (21-32) mmol/L Anion Gap 5.0 (3-11) BUN 15 (7-18) mg/dl Creatinine 0.73 (0.6-1.2) mg/dl Est Cr Clr Drug Dosing 99.9 ml/min Est GFR ( Amer) 116.1 ml/min Est GFR (Non-Af Amer) 100.2 ml/min BUN/Creatinine Ratio 20.0 (10-20) Glucose 104 H (70-99) mg/dl Calcium 9.3 (8.5-10.1) mg/dl Total Bilirubin 0.7 (0.2-1) mg/dl AST 16 (15-37) U/L ALT 24 (12-78) U/L Alkaline Phosphatase 46 (45-117) U/L Total Protein 8.5 H (6.4-8.2) gm/dl Albumin 4.2 (3.4-5.0) gm/dl Globulin 4.3 H (2.5-4.0) gm/dl Albumin/Globulin Ratio 1.0 (0.9-2) Lipase 131 (73-393) U/L HCG, Qual (Negative) Urine Color Urine Appearance (Clear) Urine pH (4.5-7.5) Ur Specific [place] (1.000-1.030) Urine Protein (Negative) Urine Glucose (UA) (Negative) Urine Ketones (Negative) Urine Blood (Negative) Urine Nitrite (Negative) Urine Bilirubin (Negative) Urine Urobilinogen (Negative) Ur Leukocyte Esterase (Negative) Urine WBC (Auto) (0-5) /hpf Urine RBC (Auto) (0-4) /hpf U Hyaline Cast (Auto) (0-5) /lpf U Epithel Cells (Auto) (0-5) /lpf Urine Bacteria (Auto) (Negative) COVID-19 Eval Order SARS-CoV-2 (PCR) (Negative) Diagnostic Findings Abdomen/Pelvis CT 01/18/21 22:[address] WITH IV CONTRAST CT DOSE: 940.00 mGy.cm HISTORY: diffuse abd pain vomiting ? sbo TECHNIQUE: Multiaxial CT images of the abdomen and pelvis were performed following the use of intravenous contrast. A dose lowering technique was utilized adhering to the principles of ALARA. COMPARISON STUDY: Abdomen and pelvis CT 01/26/2019. FINDINGS: The lung bases are clear. No pneumoperitoneum. No pneumatosis. Cholecystectomy. Mild intrahepatic bile duct dilatation, unchanged. There is mild hepatic steatosis. The spleen, adrenal glands, and pancreas unremarkable. Stable 7 mm hypodense lesion within the left kidney. There is a 6 mm stone within the lower pole the right kidney. There is mild right hydroureteronephr osis, unchanged. No obstructing stones identified. The bladder is decompressed. An intrauterine device appears in good position. There is trace pelvic free fluid. A few colonic diverticula. No evidence for acute diverticulitis. Multiple mildly dilated and thickened loops of small bowel within the right midabdomen. There is associated mesenteric fluid at this location. There are also a few mildly dilated small bowel loops within the left side of the abdomen. Distal ileal loops are decompressed. Exact transition point is difficult to identify but may be within the right midabdomen. Overall, this is slightly improved compared the prior study and is consistent with a partial small bowel obstruction. A clustering of dilated small bowel bowel loops within the right upper quadrant could represent an internal hernia. IMPRESSION: 1. There again noted multiple mildly dilated and thickened loops of small bowel within the right midabdomen with a few additional mildly dilated small bowel loops within the left side of the abdomen. A clear transition point is not identified. This has slightly improved compared to the prior study. Therefore, this favors a partial small bowel obstruction. The clustered loops of bowel within the right upper quadrant with adjacent interloop fluid raise the possibility of an internal hernia. Surgical consultation recommended. 2. Right-sided nephrolithiasis. There is stable mild right hydroureteronephrosis to the level of the ureterovesical junction. However, no obstructing stones identified. 3. Additional findings as described above. ACT 112: Negative or not required by law. Electronically signed by: Jeremy Braxton M.D. 01/19/2021 7:15 AM PG Care Time/CCT Total # of Minutes Spent Total Time Spent with Patient: Total time spent is greater than 50% in coordination of care (as documented) at patient's floor/unit and/or counseling patient: Coding Level of Care Code None Diagnoses SBO (small bowel obstruction) K56.609 Hernia, internal K45.8
--- NOTE | 2021-01-19 08:38 | Surgery Consultation ---
Date of Consultation January 19, 2021 Assessment & Plan (1) SBO (small bowel obstruction): Pt with history of multiple small bowel obstructions which respond to conservative treatment. Already feels better. Agree with bowel rest, IV hydration, await return of bowel function prior to feeding. Present on Admission?: Yes (2) Hernia, internal: Possible internal hernia on CT scan. However, clinically, she does not appear to demonstrate signs/ symptoms of internal hernia as her pain is resolved and abdominal exam is benign. We discussed that if she in fact has an internal hernia, these typically require surgery due to risk of bowel compromise. After discussion with pt, given her improvement and benign exam, we are both in agreement to try and avoid surgery for now. If pain returns or leukocytosis worsens, can re-evaluate need for surgical intervention. Present on Admission?: Yes (3) Leukocytosis: Will montior Present on Admission?: Yes History of Present Illness Reason for Consultation: small bowel obstruction, possible internal hernia Requesting Physician: TYRELL Scott and Neftaly Langley MD Attending Physician: Neftaly Langley MD History of Present Illness 45 yr old woman with history of cholecystectomy complicated by common duct injury requiring exploratory laparotomy in 1994. For the past few years, she has been dealing with intermittent small bowel obstructions. These occur about once yearly, last was admitted in January 2019. Has not need repeat exploration and her symptoms typically resolve with a few days of bowel rest and hydration. Began to notice similar symptoms yesterday, crampy excruciating central abdominal pain relieved by vomiting. Pain would then build again until she vomits. Last bowel movement was yesterday. Currently, feels better. Has not had the crampy pain for the last few hours and last threw up yesterday early. States she is having 0/10 pain currently. No bowel activity yet- no flatus. No further nausea. CT scan showed SBO and a possible internal hernia. 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 Beliefs That Will Affect Care: None Current Living Situation: Spouse Other Information That Helps Us Care for You: No Feels Safe at Home: Yes Safety Concerns: Feels Safe At This Time Assistive Devices: None Review of Systems Review of Systems: All systems reviewed & are unremarkable except as noted in HPI & below Constitutional: + chills (Lyerly chilled yesterday morning but she was by an AC unit and this was better after walking outside, none since) Hematologic / Lymphatic: history of PE Physical Exam Constitutional: WD/WN, vitals as above Eyes: PERRL, conjunctivae normal, anicteric sclerae ENMT: external ear and nose normal, oropharynx normal Neck: normal visual inspection Respiratory: normal respiratory effort, lungs clear to auscultation Cardiovascular: RRR, no murmur, no edema Gastrointestinal (Abdomen): Inspection/Auscultation: abdomen normal to inspection, + abdomen distended (mild), + abdominal surgical scar (right subcostal) and + hypoactive bowel sounds Percussion/Palpation: abdomen soft; abdomen nontender and no guarding Musculoskeletal: Head/Neck/Chest: normocephalic and head atraumatic Extremities: extremities normal to inspection Neurologic: CN's II-XI intact bilaterally and awake; no focal motor deficits Psychiatric: A+Ox3, euthymic affect Results & Data ([facility]) Vital Signs (Past 12 Hours) Vital Signs Temp Pulse Pulse Pulse Resp BP BP 01/19/21 07:41 36.7 C 71 16 133/87 01/19/21 05:01 125/85 01/19/21 03:28 36.7 C 87 16 175/125 H 01/19/21 02:32 60 18 145/85 H 01/19/21 01:31 65 18 163/109 H 01/18/21 23:18 79 24 106/46 L 01/18/21 20:44 36.2 C L 88 20 100/79 Pulse Ox 01/19/21 07:41 99 01/19/21 05:01 01/19/21 03:28 97 01/19/21 02:32 97 01/19/21 01:31 97 01/18/21 23:18 97 01/18/21 20:44 98 Laboratory Results 01/19/21 01/19/21 01/19/21 Range/Units 05:56 05:56 00:38 WBC 14.29 H (4.8-10.8) K/uL RBC 4.60 (4.2-5.4) M/uL Hgb 13.7 (12.0-16.0) g/dL Hct 40.7 (37-47) % MCV 88.5 (80-100) fL MCH 29.8 (25-34) pg MCHC 33.7 (32-36) g/dL RDW Std Deviation 43.2 (36.4-46.3) fL RDW Coeff of [place]iss[place] 13.3 (11.5-14.5) % Plt Count 281 (130-400) K/uL MPV 10.0 (7.4-10.4) fL Immature Gran % (Auto) 0.2 % Neut % (Auto) 84.7 % Lymph % (Auto) 10.0 % [place] % (Auto) 4.9 % Eos % (Auto) 0.1 % Baso % (Auto) 0.1 % Neut # (Auto) 12.11 H (1.4-6.5) K/uL Lymph # (Auto) 1.43 (1.2-3.4) K/uL [place] # (Auto) 0.70 H (0.11-0.59) K/uL Eos # (Auto) 0.01 (0-0.5) K/uL Baso # (Auto) 0.01 (0-0.2) K/uL Immature Gran # (Auto) 0.03 H (0.00-0.02) K/uL Sodium 136 (136-145) mmol/L Potassium 4.0 D (3.5-5.1) mmol/L Chloride 106 (98-107) mmol/L Carbon Dioxide 27 (21-32) mmol/L Anion Gap 3.0 (3-11) BUN 12 (7-18) mg/dl Creatinine 0.61 (0.6-1.2) mg/dl Est Cr Clr Drug Dosing 119.2 ml/min Est GFR ( Amer) 127.8 ml/min Est GFR (Non-Af Amer) 110.3 ml/min BUN/Creatinine Ratio 19.2 (10-20) Glucose 114 H (70-99) mg/dl Calcium 8.2 L (8.5-10.1) mg/dl Total Bilirubin 0.8 (0.2-1) mg/dl AST 14 L (15-37) U/L ALT 22 (12-78) U/L Alkaline Phosphatase 41 L (45-117) U/L Total Protein 7.2 (6.4-8.2) gm/dl Albumin 3.5 (3.4-5.0) gm/dl Globulin 3.7 (2.5-4.0) gm/dl Albumin/Globulin Ratio 0.9 (0.9-2) Lipase (73-393) U/L HCG, Qual (Negative) Urine Color Urine Appearance (Clear) Urine pH (4.5-7.5) Ur Specific [place] (1.000-1.030) Urine Protein (Negative) Urine Glucose (UA) (Negative) Urine Ketones (Negative) Urine Blood (Negative) Urine Nitrite (Negative) Urine Bilirubin (Negative) Urine Urobilinogen (Negative) Ur Leukocyte Esterase (Negative) Urine WBC (Auto) (0-5) /hpf Urine RBC (Auto) (0-4) /hpf U Hyaline Cast (Auto) (0-5) /lpf U Epithel Cells (Auto) (0-5) /lpf Urine Bacteria (Auto) (Negative) COVID-19 Eval Order SARS-CoV-2 (PCR) NEGATIVE (Negative) 01/19/21 01/18/21 01/18/21 Range/Units 00:38 23:27 22:15 WBC (4.8-10.8) K/uL RBC (4.2-5.4) M/uL Hgb (12.0-16.0) g/dL Hct (37-47) % MCV (80-100) fL MCH (25-34) pg MCHC (32-36) g/dL RDW Std Deviation (36.4-46.3) fL RDW Coeff of Lissette (11.5-14.5) % Plt Count (130-400) K/uL MPV (7.4-10.4) fL Immature Gran % (Auto) % Neut % (Auto) % Lymph % (Auto) % [place] % (Auto) % Eos % (Auto) % Baso % (Auto) % Neut # (Auto) (1.4-6.5) K/uL Lymph # (Auto) (1.2-3.4) K/uL [place] # (Auto) (0.11-0.59) K/uL Eos # (Auto) (0-0.5) K/uL Baso # (Auto) (0-0.2) K/uL Immature Gran # (Auto) (0.00-0.02) K/uL Sodium (136-145) mmol/L Potassium (3.5-5.1) mmol/L Chloride (98-107) mmol/L Carbon Dioxide (21-32) mmol/L Anion Gap (3-11) BUN (7-18) mg/dl Creatinine (0.6-1.2) mg/dl Est Cr Clr Drug Dosing ml/min Est GFR ( Amer) ml/min Est GFR (Non-Af Amer) ml/min BUN/Creatinine Ratio (10-20) Glucose (70-99) mg/dl Calcium (8.5-10.1) mg/dl Total Bilirubin (0.2-1) mg/dl AST (15-37) U/L ALT (12-78) U/L Alkaline Phosphatase (45-117) U/L Total Protein (6.4-8.2) gm/dl Albumin (3.4-5.0) gm/dl Globulin (2.5-4.0) gm/dl Albumin/Globulin Ratio (0.9-2) Lipase (73-393) U/L HCG, Qual Negative (Negative) Urine Color Yellow Urine Appearance Clear (Clear) Urine pH 5.0 (4.5-7.5) Ur Specific [place] 1.024 (1.000-1.030) Urine Protein Negative (Negative) Urine Glucose (UA) Negative (Negative) Urine Ketones 1+ H (Negative) Urine Blood 1+ H (Negative) Urine Nitrite Negative (Negative) Urine Bilirubin Negative (Negative) Urine Urobilinogen Negative (Negative) Ur Leukocyte Esterase Negative (Negative) Urine WBC (Auto) 1-5 (0-5) /hpf Urine RBC (Auto) 0-4 (0-4) /hpf U Hyaline Cast (Auto) 1-5 (0-5) /lpf U Epithel Cells (Auto) 10-20 H (0-5) /lpf Urine Bacteria (Auto) Negative (Negative) COVID-19 Eval Order Covid19 at [facility] SARS-CoV-2 (PCR) (Negative) 01/18/21 01/18/21 Range/Units 22:15 22:15 WBC 13.05 H (4.8-10.8) K/uL RBC 4.91 (4.2-5.4) M/uL Hgb 15.2 (12.0-16.0) g/dL Hct 44.3 (37-47) % MCV 90.2 (80-100) fL MCH 31.0 (25-34) pg MCHC 34.3 (32-36) g/dL RDW Std Deviation 43.7 (36.4-46.3) fL RDW Coeff of [place]issette 13.2 (11.5-14.5) % Plt Count 281 (130-400) K/uL MPV 10.2 (7.4-10.4) fL Immature Gran % (Auto) 0.2 % Neut % (Auto) 73.0 % Lymph % (Auto) 19.3 % [place] % (Auto) 6.1 % Eos % (Auto) 1.2 % Baso % (Auto) 0.2 % Neut # (Auto) 9.53 H (1.4-6.5) K/uL Lymph # (Auto) 2.52 (1.2-3.4) K/uL [place] # (Auto) 0.79 H (0.11-0.59) K/uL Eos # (Auto) 0.16 (0-0.5) K/uL Baso # (Auto) 0.02 (0-0.2) K/uL Immature Gran # (Auto) 0.03 H (0.00-0.02) K/uL Sodium 138 (136-145) mmol/L Potassium 3.4 L (3.5-5.1) mmol/L Chloride 104 (98-107) mmol/L Carbon Dioxide 29 (21-32) mmol/L Anion Gap 5.0 (3-11) BUN 15 (7-18) mg/dl Creatinine 0.73 (0.6-1.2) mg/dl Est Cr Clr Drug Dosing 99.9 ml/min Est GFR ( Amer) 116.1 ml/min Est GFR (Non-Af Amer) 100.2 ml/min BUN/Creatinine Ratio 20.0 (10-20) Glucose 104 H (70-99) mg/dl Calcium 9.3 (8.5-10.1) mg/dl Total Bilirubin 0.7 (0.2-1) mg/dl AST 16 (15-37) U/L ALT 24 (12-78) U/L Alkaline Phosphatase 46 (45-117) U/L Total Protein 8.5 H (6.4-8.2) gm/dl Albumin 4.2 (3.4-5.0) gm/dl Globulin 4.3 H (2.5-4.0) gm/dl Albumin/Globulin Ratio 1.0 (0.9-2) Lipase 131 (73-393) U/L HCG, Qual (Negative) Urine Color Urine Appearance (Clear) Urine pH (4.5-7.5) Ur Specific [place] (1.000-1.030) Urine Protein (Negative) Urine Glucose (UA) (Negative) Urine Ketones (Negative) Urine Blood (Negative) Urine Nitrite (Negative) Urine Bilirubin (Negative) Urine Urobilinogen (Negative) Ur Leukocyte Esterase (Negative) Urine WBC (Auto) (0-5) /hpf Urine RBC (Auto) (0-4) /hpf U Hyaline Cast (Auto) (0-5) /lpf U Epithel Cells (Auto) (0-5) /lpf Urine Bacteria (Auto) (Negative) COVID-19 Eval Order SARS-CoV-2 (PCR) (Negative) Diagnostic Findings ABDOMEN AND PELVIS CT WITH IV CONTRAST CT DOSE: 940.00 mGy.cm HISTORY: diffuse abd pain vomiting ? sbo TECHNIQUE: Multiaxial CT images of the abdomen and pelvis were performed following the use of intravenous contrast. A dose lowering technique was utilized adhering to the principles of ALARA. COMPARISON STUDY: Abdomen and pelvis CT 01/26/2019. FINDINGS: The lung bases are clear. No pneumoperitoneum. No pneumatosis. Cholecystectomy. Mild intrahepatic bile duct dilatation, unchanged. There is mild hepatic steatosis. The spleen, adrenal glands, and pancreas unremarkable. Stable 7 mm hypodense lesion within the left kidney. There is a 6 mm stone within the lower pole the right kidney. There is mild right hydroureteronephrosis, unchanged. No obstructing stones identified. The bladder is decompressed. An intrauterine device appears in good position. There is trace pelvic free fluid. A few colonic diverticula. No evidence for acute diverticulitis. Multiple mildly dilated and thickened loops of small bowel within the right midabdomen. There is associated mesenteric fluid at this location. There are also a few mildly dilated small bowel loops within the left side of the abdomen. Distal ileal loops are decompressed. Exact transition point is difficult to identify but may be within the right midabdomen. Overall, this is slightly improved compared the prior study and is consistent with a partial small bowel obstruction. A clustering of dilated small bowel bowel loops within the right upper quadrant could represent an internal hernia. IMPRESSION: 1. There again noted multiple mildly dilated and thickened loops of small bowel within the right midabdomen with a few additional mildly dilated small bowel loops within the left side of the abdomen. A clear transition point is not i dentified. This has slightly improved compared to the prior study. Therefore, this favors a partial small bowel obstruction. The clustered loops of bowel within the right upper quadrant with adjacent interloop fluid raise the possibility of an internal hernia. Surgical consultation recommended. 2. Right-sided nephrolithiasis. There is stable mild right hydroureteronephrosis to the level of the ureterovesical junction. However, no obstructing stones identified. 3. Additional findings as described above. (1) Leukocytosis Leukocytosis type: unspecified Qualified Code(s): D72.829 - Elevated white blood cell count, unspecified
[2021-01-19] MEDS ORDERED: CALCIUM GLUCONATE 10% 1,000 MG in SODIUM CHLORIDE 0.9% 50 ML IV ONE (09:00)
[2021-01-19 09:20] LABS: Thyroid Stimulating Hormone 0.619 uIu/ml (0.300-4.500)
[2021-01-19] MEDS ORDERED: PROMETHAZINE HCL 6.25 MG in SODIUM CHLORIDE 0.9% 50 ML IV PRN (12:28)
[2021-01-19] MEDS: HEPARIN SOD 5,000 UNIT/0.5 ML VIAL SQ SCH ×2 (13:57→22:23)
[2021-01-19] MEDS ORDERED: hydrALAZINE HCL 20 MG/ML VIAL IV PRN (16:56)
[2021-01-20] MEDS: metroNIDAZOLE 500 MG/100 ML BAG IV SCH ×3 (04:49→20:50)
[2021-01-20] MEDS: NSS + 20MEQ KCL 20 MEQ/1,000 ML BAG IV SCH ×3 (04:50→20:50)
[2021-01-20 05:58] LABS: Basophils # (auto) 0.01 K/uL (0-0.2); Basophils % (auto) 0.1 %; Eosinophils # (auto) 0.17 K/uL (0-0.5); Eosinophils % (auto) 2.3 %; Hematocrit (blood only) 37.2 % (37-47); Hemoglobin 12.3 g/dL (12.0-16.0); Immature Granulocytes # (auto) 0.02 K/uL (0.00-0.02); Immature Granulocytes % (auto) 0.3 %; Lymphocytes # (auto) 1.98 K/uL (1.2-3.4); Lymphocytes % (auto) 26.2 %; Mean Corpuscular Hemoglobin 29.6 pg (25-34); Mean Corpuscular Hgb Conc 33.1 g/dL (32-36); Mean Corpuscular Volume 89.4 fL (80-100); Mean Platelet Volume 9.7 fL (7.4-10.4); Monocytes # (auto) 0.69 K/uL (0.11-0.59); Monocytes % (auto) 9.1 %; Neutrophils # (auto) 4.68 K/uL (1.4-6.5); Platelet Count 204 K/uL (130-400); RDW Coefficient of Variation 13.3 % (11.5-14.5); RDW Standard Deviation 43.3 fL (36.4-46.3); Red Blood Count 4.16 M/uL (4.2-5.4); White Blood Count 7.55 K/uL (4.8-10.8)
[2021-01-20] MEDS: ACETAMINOPHEN 1,000 MG/100 ML VIAL IV PRN (06:24)
[2021-01-20 06:37] LABS: Albumin Globulin Ratio 1.1 (0.9-2); Albumin Level 3.1 gm/dl (3.4-5.0); BUN Creatinine Ratio 15.5 (10-20); Bilirubin,Total 0.8 mg/dl (0.2-1); Calcium 7.7 mg/dl (8.5-10.1); Creatinine Clr Calc Pharmacy 125.4 ml/min; Est GFR (African American) 129.9 ml/min; Est GFR (Non-African American) 112.1 ml/min; Globulin 2.9 gm/dl (2.5-4.0); Potassium 3.4 mmol/L (3.5-5.1)
[2021-01-20] MEDS: HEPARIN SOD 5,000 UNIT/0.5 ML VIAL SQ SCH ×3 (06:49→22:42)
[2021-01-20] MEDS: CIPROFLOXACIN / D5W 400 MG/200 ML BAG IV SCH ×2 (06:50→17:18)
--- NOTE | 2021-01-20 08:06 | Hospitalist Progress Note ---
Date of Service January 20, 2021 Assessment & Plan (1) SBO (small bowel obstruction): Plan: secondary to adhesive disease Small bowel obstruction/internal hernia- patient with hx cholecystectomy (complicated by common duct injury) and appendectomy. CTAP: * 1. There again noted multiple mildly dilated and thickened loops of small bowel within the right midabdomen with a few additional mildly dilated small bowel loops within the left side of the abdomen. A clear transition point is not identified. This has slightly improved compared to the prior study. Therefore, this favors a partial small bowel obstruction. The clustered loops of bowel within the right upper quadrant with adjacent interloop fluid raise the possibility of an internal hernia. Surgical consultation recommended. * 2. Right-sided nephrolithiasis. There is stable mild right hydroureteronephrosis to the level of the ureterovesical junction. However, no obstructing stones identified. General surgery, GI on consult Continue supportive care, electrolyte replacement as needed (currently getting p otassium in IVF and K riders, 1gm IV Ca for corrected Ca 8.4) Continue Cipro/flagyl Protonix IVP Pain control, antiemetics as needed -- no further n/v since AM 01/19 with administration of Phenergan WBC wnl, afebrile Passing gas and advanced to clear liquids today -- possible advancement tomorrow F/u with [facility] outpatient in 1-2 weeks Continue to monitor AM labs (2) Hernia, internal: Plan: See above -- does not appear to be the case. Imaging actually improved compared to her prior SBO imaging and appears chronic. Could consider lap eval however risk for more adhesions and frequency appears to be yearly. Consider eval if becomes more frequent in the future Diarrhea -- Now with SBO/hernia as above but chronic diarrhea since her cholecystectomy --> could consider cholestyramine at discharge if patient agreeable DVT Proph SCDs. Added Heparin SQ as no plans for surgery at this time -- she has been denying however she is frequently ambulating. No evidence of DVT at this time Dispo: continued inpatient stay Admission and Anticipated Discharge Date Admission Date: January 19, 2021 Subjective Patient evaluated at lunch time. Patient feeling well. No pain. No further nausea or vomiting. Passing gas and ambulating in the halls frequently. Just got her clear liquid tray and discussed continuing this for today and will consider advancement in AM if bowel function continues to improve. No fever, chills, chest pain, shortness of breath, calf tenderness, erythema, swelling or other symptoms at this time. Review of Systems Review of Systems: All systems reviewed & are unremarkable except as noted in HPI & below Physical Exam Constitutional: WD/WN, vitals as above Eyes: + anicteric sclerae; no eyelid abnormality ENMT: mmm Neck: normal visual inspection Respiratory: normal respiratory effort, lungs clear to auscultation Cardiovascular: RRR, no murmur, no edema Extremities: no calf tenderness and no edema Gastrointestinal (Abdomen): Inspection/Auscultation: abdomen normal to inspec tion, + abdominal surgical scar (right subcostal) and + hypoactive bowel sounds Percussion/Palpation: abdomen soft; abdomen nontender and no guarding Musculoskeletal: Head/Neck/Chest: normocephalic and head atraumatic Extremities: extremities normal to inspection Neurologic: CN's II-XI intact bilaterally and awake; no focal motor deficits Psychiatric: A+Ox3, euthymic affect Results & Data Results & Data ([facility]) Vital Signs (Past 12 Hours) Vital Signs Temp Pulse Resp BP Pulse Ox 01/20/21 07:00 36.7 C 67 16 123/80 98 01/19/21 23:22 36.8 C 61 16 128/82 98 Laboratory Results 01/20/21 01/20/21 01/19/21 Range/Units 05:36 05:36 08:33 WBC 7.55 (4.8-10.8) K/uL RBC 4.16 L (4.2-5.4) M/uL Hgb 12.3 (12.0-16.0) g/dL Hct 37.2 (37-47) % MCV 89.4 (80-100) fL MCH 29.6 (25-34) pg MCHC 33.1 (32-36) g/dL RDW Std Deviation 43.3 (36.4-46.3) fL RDW Coeff of Lissette 13.3 (11.5-14.5) % Plt Count 204 (130-400) K/uL MPV 9.7 (7.4-10.4) fL Immature Gran % (Auto) 0.3 % Neut % (Auto) 62.0 % Lymph % (Auto) 26.2 % [place] % (Auto) 9.1 % Eos % (Auto) 2.3 % Baso % (Auto) 0.1 % Neut # (Auto) 4.68 (1.4-6.5) K/uL Lymph # (Auto) 1.98 (1.2-3.4) K/uL [place] # (Auto) 0.69 H (0.11-0.59) K/uL Eos # (Auto) 0.17 (0-0.5) K/uL Baso # (Auto) 0.01 (0-0.2) K/uL Immature Gran # (Auto) 0.02 (0.00-0.02) K/uL Sodium 140 (136-145) mmol/L Potassium 3.4 L (3.5-5.1) mmol/L Chloride 111 H (98-107) mmol/L Carbon Dioxide 26 (21-32) mmol/L Anion Gap 3.0 (3-11) BUN 9 (7-18) mg/dl Creatinine 0.58 L (0.6-1.2) mg/dl Est Cr Clr Drug Dosing 125.4 ml/min Est GFR ( Amer) 129.9 ml/min Est GFR (Non-Af Amer) 112.1 ml/min BUN/Creatinine Ratio 15.5 (10-20) Glucose 84 (70-99) mg/dl Calcium 7.7 L (8.5-10.1) mg/dl Magnesium 2.0 (1.8-2.4) mg/dl Total Bilirubin 0.8 (0.2-1) mg/dl AST 14 L (15-37) U/L ALT 20 (12-78) U/L Alkaline Phosphatase 32 L (45-117) U/L Total Protein 6.0 L (6.4-8.2) gm/dl Albumin 3.1 L (3.4-5.0) gm/dl Globulin 2.9 (2.5-4.0) gm/dl Albumin/Globulin Ratio 1.1 (0.9-2) 25-OH Vitamin D Total Pending TSH (0.300-4.500) uIu/ml 01/19/21 Range/Units 08:33 WBC (4.8-10.8) K/uL RBC (4.2-5.4) M/uL Hgb (12.0-16.0) g/dL Hct (37-47) % MCV (80-100) fL MCH (25-34) pg MCHC (32-36) g/dL RDW Std Deviation (36.4-46.3) fL RDW Coeff of [place]issette (11.5-14.5) % Plt Count (130-400) K/uL MPV (7.4-10.4) fL Immature Gran % (Auto) % Neut % (Auto) % Lymph % (Auto) % [place] % (Auto) % Eos % (Auto) % Baso % (Auto) % Neut # (Auto) (1.4-6.5) K/uL Lymph # (Auto) (1.2-3.4) K/uL [place] # (Auto) (0.11-0.59) K/uL Eos # (Auto) (0-0.5) K/uL Baso # (Auto) (0-0.2) K/uL Immature Gran # (Auto) (0.00-0.02) K/uL Sodium (136-145) mmol/L Potassium (3.5-5.1) mmol/L Chloride (98-107) mmol/L Carbon Dioxide (21-32) mmol/L Anion Gap (3-11) BUN (7-18) mg/dl Creatinine (0.6-1.2) mg/dl Est Cr Clr Drug Dosing ml/min Est GFR ( Amer) ml/min Est GFR (Non-Af Amer) ml/min BUN/Creatinine Ratio (10-20) Glucose (70-99) mg/dl Calcium (8.5-10.1) mg/dl Magnesium 2.0 (1.8-2.4) mg/dl Total Bilirubin (0.2-1) mg/dl AST (15-37) U/L ALT (12-78) U/L Alkaline Phosphatase (45-117) U/L Total Protein (6.4-8.2) gm/dl Albumin (3.4-5.0) gm/dl Globulin (2.5-4.0) gm/dl Albumin/Globulin Ratio (0.9-2) 25-OH Vitamin D Total TSH 0.619 (0.300-4.500) uIu/ml PG Care Time/CCT Total # of Minutes Spent Total Time Spent with Patient: Total time spent is greater than 50% in coordination of care (as documented) at patient's floor/unit and/or counseling patient: Coding Level of Care Code 38372 Subseq Hosp Care Lvl 2 Diagnoses SBO (small bowel obstruction) K56.609 Hernia, internal K45.8
[2021-01-20] MEDS ORDERED: CALCIUM GLUCONATE 10% 1,000 MG in SODIUM CHLORIDE 0.9% 50 ML IV ONE (08:30)
[2021-01-20] MEDS: POTASSIUM CHLORIDE / WTR 10 MEQ/100 ML PLCT IV SCH ×3 (09:03→12:59)
--- NOTE | 2021-01-20 10:22 | Surgery Progress Note ---
Date of Service January 20, 2021 Assessment & Plan (1) SBO (small bowel obstruction): Plan: Pt with history of multiple small bowel obstructions which respond to conservative treatment. Improving with return of bowel function. OK to start clear liquids. (2) Hernia, internal: Plan: Possible internal hernia on CT scan. However, clinically, she does not appear to demonstrate signs/ symptoms of internal hernia as her pain is resolved and abdominal exam is benign. Remains afebrile with normal WBC count today and no clinical sign of closed loop obstruction. Clinically improving. (3) Leukocytosis: Plan: Resolved. Admission and Anticipated Discharge Date Admission Date: January 19, 2021 Subjective Doing better today. No further pain. No vomiting since yesterday's episode. Has started passing flatus. Feels bloating is decreased. Review of Systems Review of Systems: All systems reviewed & are unremarkable except as noted in HPI & below Physical Exam Constitutional: WD/WN, vitals as above Eyes: PERRL, conjunctivae normal, anicteric sclerae Respiratory: no respiratory distress and no labored breathing Auscultation: lungs clear to auscultation bilaterally Cardiovascular: RRR, no murmur, no edema Gastrointestinal (Abdomen): Inspection/Auscultation: normal bowel sounds and + abdominal surgical scar; abdomen not distended Percussion/Palpation: abdomen soft; abdomen nontender and no guarding Neurologic: awake; no focal motor deficits Psychiatric: A+Ox3, euthymic affect Results & Data ([facility]) Vital Signs (Past 12 Hours) Vital Signs Temp Pulse Resp BP Pulse Ox 01/20/21 07:00 36.7 C 67 16 123/80 98 01/19/21 23:22 36.8 C 61 16 128/82 98 Laboratory Results 01/20/21 01/20/21 Range/Units 05:36 05:36 WBC 7.55 (4.8-10.8) K/uL RBC 4.16 L (4.2-5.4) M/uL Hgb 12.3 (12.0-16.0) g/dL Hct 37.2 (37-47) % MCV 89.4 (80-100) fL MCH 29.6 (25-34) pg MCHC 33.1 (32-36) g/dL RDW Std Deviation 43.3 (36.4-46.3) fL RDW Coeff of [place]issette 13.3 (11.5-14.5) % Plt Count 204 (130-400) K/uL MPV 9.7 (7.4-10.4) fL Immature Gran % (Auto) 0.3 % Neut % (Auto) 62.0 % Lymph % (Auto) 26.2 % [place] % (Auto) 9.1 % Eos % (Auto) 2.3 % Baso % (Auto) 0.1 % Neut # (Auto) 4.68 (1.4-6.5) K/uL Lymph # (Auto) 1.98 (1.2-3.4) K/uL [place] # (Auto) 0.69 H (0.11-0.59) K/uL Eos # (Auto) 0.17 (0-0.5) K/uL Baso # (Auto) 0.01 (0-0.2) K/uL Immature Gran # (Auto) 0.02 (0.00-0.02) K/uL Sodium 140 (136-145) mmol/L Potassium 3.4 L (3.5-5.1) mmol/L Chloride 111 H (98-107) mmol/L Carbon Dioxide 26 (21-32) mmol/L Anion Gap 3.0 (3-11) BUN 9 (7-18) mg/dl Creatinine 0.58 L (0.6-1.2) mg/dl Est Cr Clr Drug Dosing 125.4 ml/min Est GFR ( Amer) 129.9 ml/min Est GFR (Non-Af Amer) 112.1 ml/min BUN/Creatinine Ratio 15.5 (10-20) Glucose 84 (70-99) mg/dl Calcium 7.7 L (8.5-10.1) mg/dl Magnesium 2.0 (1.8-2.4) mg/dl Total Bilirubin 0.8 (0.2-1) mg/dl AST 14 L (15-37) U/L ALT 20 (12-78) U/L Alkaline Phosphatase 32 L (45-117) U/L Total Protein 6.0 L (6.4-8.2) gm/dl Albumin 3.1 L (3.4-5.0) gm/dl Globulin 2.9 (2.5-4.0) gm/dl Albumin/Globulin Ratio 1.1 (0.9-2) (1) Leukocytosis Leukocytosis type: unspecified Qualified Code(s): D72.829 - Elevated white blood cell count, unspecified
--- NOTE | 2021-01-20 11:12 | Gastrointestinal Consultation ---
Date of Consultation January 20, 2021 Assessment & Plan (1) SBO (small bowel obstruction): improving, did not require an NG tube this admission. likely from adhesions from past surgeries. Recs: --can advance diet to clear liquids today --check KUB today and daily --if tolerates clears today can advance as tolerated tomorrow morning --supportive care, IVFs --follow up with [facility] as an outpatient in 1-2 weeks Thank you for allowing me to participate in the care of this patient History of Present Illness Reason for Consultation: recurrent SBO Attending Physician: Neftaly Langley MD History of Present Illness 45 yo female with hx CCY with open surgery after transected CBD, appy, recurrent SBOs here for SBO. She noticed epigastric abdominal pains and CT A/P showed partial SBO along with possible internal hernia. She was made NPO here and has improved, now passing flatus and abdominal pain has resolved. Was seen by surgery. Last SBO was about a year ago. Currently feeling well, will try clear liquids today at lunch. No definitive family hx of IBD but she suspects her father may have it. labs reviewed, VSS. Allergies Allergy/AdvReac Type Severity Reaction Status Date / Time Penicillins Allergy Severe AMOXICILLIN-ITCHY Verified 01/26/19 00:56 HIVES Home Medications Medication Instructions Recorded Confirmed Type No Known Home Medications 01/26/19 01/26/19 History Patient History Medical History Kidney cysts Kidney stones Pulmonary embolism Small bowel obstruction Surgical History History of cholecystectomy Hx of appendectomy Social History Smoking Status: Never smoker Hx Alcohol Use: No Hx Substance Use: No Preferred Language: Liberian Communication Ability: Effective Solder Making Supervisor Required: No Beliefs That Will Affect Care: None Current Living Situation: Spouse Other Information That Helps Us Care for You: No Feels Safe at Home: Yes Safety Concerns: Feels Safe At This Time Assistive Devices: None Review of Systems Constitutional: no fever, no chills and no weight loss Eyes: as per Subjective / HPI Ear, Nose, Mouth, Throat: as per Subjective / HPI Respiratory: no dyspnea and no dyspnea on exertion Cardiovascular: no chest pain and no palpitations Gastrointestinal: as per Subjective / HPI Musculoskeletal: no joint pain and no swelling Integumentary: no rash and no lesions Neurologic: no numbness and no paresthesia Psychiatric: no depression and no anxiety Endocrine: no fatigue Hematologic / Lymphatic: no easy bleeding and no easy bruising Physical Exam Constitutional: WD/WN, vitals as above Eyes: EOM intact bilaterally Neck: normal visual inspection Respiratory: normal respiratory effort, lungs clear to auscultation Cardiovascular: RRR, no murmur, no edema Gastrointestinal (Abdomen): Inspection/Auscultation: abdomen normal to inspection; abdomen not distended Percussion/Palpation: abdomen soft; abdomen nontender and no hepatosplenomegaly Musculoskeletal: Extremities: no cyanosis Gait: normal gait Skin: no rashes, warm and dry Neurologic: moves all extremities Psychiatric: A+Ox3, euthymic affect Results & Data ([facility]) Vital Signs (Past 12 Hours) Vital Signs Temp Pulse Resp BP Pulse Ox 01/20/21 07:00 36.7 C 67 16 123/80 98 01/19/21 23:22 36.8 C 61 16 128/82 98 PG Care Time/CCT Total # of Minutes Spent Total Time Spent with Patient: Total time spent is greater than 50% in coordination of care (as documented) at patient's floor/unit and/or counseling patient: Coding Level of Care Code 16763 Inpt Consult Level 4 Diagnoses SBO (small bowel obstruction) K56.609
[2021-01-20] MEDS: PANTOprazole 40 MG in SYRINGE 0 ML IV SCH (12:02)
--- NOTE | 2021-01-20 15:26 | XRay Report ---
KUB CLINICAL HISTORY: f/u COMPARISON STUDY: CT of the abdomen and pelvis January 18, 2021. FINDINGS: There is a single loop of mildly dilated small bowel within the right mid abdomen. Intraute rine device is incidentally noted. Gas within the colon and rectum is noted. IMPRESSION: Loop of mildly dilated small bowel within the right mid abdomen. The findings suggest a persistent partial small bowel obstruction. ACT 112: Negative or not required by law. Electronically signed by: Kobi Beckford M.D. 01/20/2021 3:25 PM
[2021-01-21] MEDS: ACETAMINOPHEN 1,000 MG/100 ML VIAL IV PRN (00:14)
[2021-01-21] MEDS: metroNIDAZOLE 500 MG/100 ML BAG IV SCH ×3 (04:45→21:09)
[2021-01-21] MEDS: CIPROFLOXACIN / D5W 400 MG/200 ML BAG IV SCH ×2 (05:59→17:48)
[2021-01-21] MEDS: HEPARIN SOD 5,000 UNIT/0.5 ML VIAL SQ SCH ×3 (06:00→21:10)
[2021-01-21 06:03] LABS: Basophils # (auto) 0.01 K/uL (0-0.2); Basophils % (auto) 0.1 %; Eosinophils # (auto) 0.19 K/uL (0-0.5); Eosinophils % (auto) 2.6 %; Hematocrit (blood only) 38.5 % (37-47); Hemoglobin 13.1 g/dL (12.0-16.0); Immature Granulocytes # (auto) 0.01 K/uL (0.00-0.02); Immature Granulocytes % (auto) 0.1 %; Lymphocytes # (auto) 2.45 K/uL (1.2-3.4); Lymphocytes % (auto) 33.3 %; Mean Corpuscular Hemoglobin 30.3 pg (25-34); Mean Corpuscular Volume 88.9 fL (80-100); Mean Platelet Volume 9.6 fL (7.4-10.4); Monocytes % (auto) 8.2 %; Neutrophils # (auto) 4.09 K/uL (1.4-6.5); Neutrophils % (auto) 55.7 %; Platelet Count 226 K/uL (130-400); RDW Coefficient of Variation 13.1 % (11.5-14.5); RDW Standard Deviation 42.8 fL (36.4-46.3); Red Blood Count 4.33 M/uL (4.2-5.4); White Blood Count 7.35 K/uL (4.8-10.8)
[2021-01-21] MEDS: KETOROLAC TROMETHAMINE 15 MG/ML VIAL IV PRN (06:10)
[2021-01-21 06:33] LABS: Albumin Level 3.2 gm/dl (3.4-5.0); BUN Creatinine Ratio 11.5 (10-20); Bilirubin,Total 0.6 mg/dl (0.2-1); Creatinine Clr Calc Pharmacy 134.7 ml/min; Est GFR (Non-African American) 114.8 ml/min; Globulin 3.1 gm/dl (2.5-4.0); Potassium 3.4 mmol/L (3.5-5.1); Total Protein 6.3 gm/dl (6.4-8.2)
--- NOTE | 2021-01-21 09:14 | XRay Report ---
XR KUB/Abdomen 1 view CLINICAL HISTORY: follow up ABNORMAL BOWEL DILATATION. COMPARISON STUDY: 01/20/2021 FINDINGS: There is gas present within colonic and small bowel loops. There is interval decrease in th e diameter of the previously described dilated right mid abdominal small bowel loop which currently m easures 33 mm in diameter. An IUD is visualized. IMPRESSION: 1. Decreasing right mid abdominal small bowel dilatation. 2. Gas present within nondilated colon. ACT 112: Negative or not required by law. Electronically signed by: Toney Peoples M.D. 01/21/2021 9:12 AM
[2021-01-21] MEDS: NSS + 20MEQ KCL 20 MEQ/1,000 ML BAG IV SCH (10:01)
[2021-01-21] MEDS: PANTOprazole 40 MG in SYRINGE 0 ML IV SCH (11:05)
[2021-01-21] MEDS ORDERED: ACETAMINOPHEN 500 MG TAB PO ONE (11:59)
[2021-01-21] MEDS ORDERED: KETOROLAC 30 MG/ML VIAL IV ONE (11:59)
--- NOTE | 2021-01-21 12:47 | Gastroenterology Progress Note ---
Date of Service January 21, 2021 Assessment & Plan (1) Small bowel obstruction: Plan: improving Recs: --agree with obtaining SBFT study --advance diet as tolerated to low residue diet if continuing to improve, can stay on low residue diet upon discharge --will need follow up with [facility] in 1-2 weeks supportive care Admission and Anticipated Discharge Date Admission Date: January 19, 2021 Subjective no events overnight, tolerating clear liquid diet. She feels well and denies any nausuea, abdominal pains. had small bowel movement this morning. KUB is improved today. labs reviewed. afebrile, VSS. Review of Systems Constitutional: no fever and no chills Respiratory: no cough, no dyspnea and no dyspnea on exertion Cardiovascular: no chest pain and no dyspnea Gastrointestinal: as per Subjective / HPI Psychiatric: no depression and no anxiety Physical Exam Constitutional: WD/WN, vitals as above Respiratory: normal respiratory effort, lungs clear to auscultation Cardiovascular: RRR, no murmur, no edema Gastrointestinal (Abdomen): normal bowel sounds, soft, nontender, no hepatosplenomegaly Musculoskeletal: no lower extremity edema Psychiatric: A+Ox3, euthymic affect Results & Data Results & Data ([facility]) Vital Signs (Past 12 Hours) Vital Signs Temp Pulse Resp BP Pulse Ox 01/21/21 06:00 36.6 C 70 14 132/86 98 PG Care Time/CCT Total # of Minutes Spent Total Time Spent with Patient: Total time spent is greater than 50% in coordination of care (as documented) at patient's floor/unit and/or counseling patient: Coding Level of Care Code 09808 Subs Hosp Care Lvl 3 Diagnoses Small bowel obstruction K56.609
--- NOTE | 2021-01-21 13:33 | Progress Note ---
Date of Service January 21, 2021 F/U SBO, pt is doing fine, no abdominal pain, no nausea, no vomiting, tolerated clear diet, Assessment & Plan (1) SBO (small bowel obstruction): Plan: Pt with history of multiple small bowel obstructions which respond to conservative treatment. Improving with return of bowel function. OK to start clear liquids. 01/21/2021 1:#@PM DR. Leos SBO resolved advance diet, possible D/C tomorrow, (2) Hernia, internal: Plan: Possible internal hernia on CT scan. However, clinically, she does not appear to demonstrate signs/ symptoms of internal hernia as her pain is resolved and abdominal exam is benign. Remains afebrile with normal WBC count today and no clinical sign of closed loop obstruction. Clinically improving. (3) Leukocytosis: Plan: Resolved. Leukocytosis type: unspecified Qualified Code(s): D72.829 - Elevated white blood cell count, unspecified Admission and Anticipated Discharge Date Admission Date: January 19, 2021 Subjective no events overnight, tolerating clear liquid diet. She feels well and denies any nausuea, abdominal pains. had small bowel movement this morning. KUB is improved today. labs reviewed. afebrile, VSS. Review of Systems Constitutional: + chills ([place] chilled yesterday morning but she was by an AC unit and this was better after walking outside, none since) Hematologic / Lymphatic: history of PE Physical Exam Respiratory: normal respiratory effort, lungs clear to auscultation Cardiovascular: RRR, no murmur, no edema Gastrointestinal (Abdomen): Soft, NT, ND, BS + Neurologic: patellar DTR's 2+ bilat, sensation intact Psychiatric: A+Ox3, euthymic affect Results & Data ([facility]) Vital Signs (Past 12 Hours) Vital Signs Temp Pulse Resp BP Pulse Ox 01/21/21 06:00 36.6 C 70 14 132/86 98
[2021-01-21] MEDS ORDERED: POTASSIUM CHLORIDE CRTAB 20 MEQ TABCR PO STA (14:22)
--- NOTE | 2021-01-21 16:40 | Hospitalist Progress Note ---
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 will complete 5 day course. * patient showing favorable response. * given recurrent episodes and surgical hx, suspect may have chronic partial SBO-->will obtain small bowel follow through in am. May need fpc low residue diet. * plan for likely D/C tomorrow Small bowel obstruction/internal hernia- patient with hx cholecystectomy (complicated by common duct injury) and appendectomy. CTAP: * 1. There again noted multiple mildly dilated and thickened loops of small bowel within the right midabdomen with a few additional mildly dilated small bowel loops within the left side of the abdomen. A clear transition point is not identified. This has slightly improved compared to the prior study. Therefore, this favors a partial small bowel obstruction. The clustered loops of bowel within the right upper quadrant with adjacent interloop fluid raise the possibility of an internal hernia. Surgical consultation recommended. * 2. Right-sided nephrolithiasis. There is stable mild right hydroureteronephrosis to the level of the ureterovesical junction. However, no obstructing stones identified. (2) Hypokalemia: Plan: * replace (3) Hernia, internal: Plan: See above -- does not appear to be the case. General surgery saw patient-- no surgical intervention given clinical improvement. Appreciate recommendations DVT Proph SCDs. Added Heparin SQ as no plans for surgery at this time -- she has been denying however she is frequently ambulating. No evidence of DVT at this time Dispo: continued inpatient stay, presumed D/C tomorrow Plan: plan of care to be [place]. Further orders as warrented Admission and Anticipated Discharge Date Admission Date: January 19, 2021 Subjective Patient seen on daily rounds today. She is a 45 y/o WF with a PMHx of recurrent SBO, h/o laparoscopic cholecystectomy with need for FU exploratory laparotomy d/t common bile duct injury, and appendectomy. She was admitted on 01/19 with rec urrent SBO (this is her 4th occurrence). Has never had a need for NGT or surgical intervention as all SBO's in the past have responded with conservative mgmt (bowel rest and IVF). Did have leukocytosis of 13K on admission. On empiric Cipor/flagyl. CT showed concern for internal hernia. So far, is responding favorably to conservative mgmt. GI/Surgery on board- no added recommendations. Patient is tolerating clear liquids. Denies abd pain, N/V. Is passing flatus and had a semi-formed BM. Denies F/C, CP, SOB, GI/ symptoms Review of Systems 2 Review of Systems: All systems reviewed and are unremarkable except as noted in HPI and below Denies fevers, chills, headache, nasal congestion, sore throat, cough, chest pain, shortness of breath, abdominal pain, nausea, vomiting, dysuria, hematuria, frequency, skin lesions or rashes. Physical Exam Physical Exam: General: Resting comfortably in her hospital bed. NAD. Neck: No JVD. Negative hepatojugular reflex Cardiac: RRR without M/G/R Lungs: CTA without W/R/R Abdomen: Abdomen is nondistended. Normoactive X4. Soft and nontender in all quadrants. Extremities: No peripheral clubbing cyanosis or edema Neuro: A&O X4 cranial nerves II through XII are grossly intact no focal neuro deficits Skin: No obvious skin lesions or rashes Results & Data Results & Data ([facility]) Vital Signs (Past 12 Hours) Vital Signs Temp Pulse Resp BP Pulse Ox 01/21/21 15:21 36.8 C 77 18 131/88 99 01/21/21 06:00 36.6 C 70 14 132/86 98 Laboratory Results 01/21/21 05:42 01/21/21 05:42 PG Care Time/CCT Total # of Minutes Spent Total Time Spent with Patient: Total time spent is greater than 50% in coordination of care (as documented) at patient's floor/unit and/or counseling patient: [place] [address] Subseq Hosp Care Lvl 2 Patient Type Established History Expanded Problem Focused Exam Expanded Problem Focused Medical Decision Making Moderate Complexity Diagnoses SBO (small bowel obstruction) K56.609 Hernia, internal K45.8 Hypokalemia E87.6
[2021-01-22] MEDS: NSS + 20MEQ KCL 20 MEQ/1,000 ML BAG IV SCH ×2 (00:05→12:11)
[2021-01-22] MEDS: metroNIDAZOLE 500 MG/100 ML BAG IV SCH ×2 (04:15→12:10)
[2021-01-22] MEDS: HEPARIN SOD 5,000 UNIT/0.5 ML VIAL SQ SCH (05:29)
[2021-01-22] MEDS: CIPROFLOXACIN / D5W 400 MG/200 ML BAG IV SCH (05:53)
[2021-01-22 06:56] LABS: Basophils # (auto) 0.02 K/uL (0-0.2); Basophils % (auto) 0.3 %; Eosinophils # (auto) 0.24 K/uL (0-0.5); Eosinophils % (auto) 3.5 %; Hematocrit (blood only) 40.2 % (37-47); Hemoglobin 13.5 g/dL (12.0-16.0); Immature Granulocytes # (auto) 0.01 K/uL (0.00-0.02); Immature Granulocytes % (auto) 0.1 %; Lymphocytes # (auto) 1.96 K/uL (1.2-3.4); Lymphocytes % (auto) 28.5 %; Mean Corpuscular Hgb Conc 33.6 g/dL (32-36); Mean Corpuscular Volume 89.3 fL (80-100); Monocytes % (auto) 10.2 %; Neutrophils # (auto) 3.94 K/uL (1.4-6.5); Neutrophils % (auto) 57.4 %; Platelet Count 243 K/uL (130-400); RDW Coefficient of Variation 13.2 % (11.5-14.5); White Blood Count 6.87 K/uL (4.8-10.8)
[2021-01-22 07:28] LABS: BUN Creatinine Ratio 11.1 (10-20); Calcium 8.1 mg/dl (8.5-10.1); Creatinine Clr Calc Pharmacy 139.9 ml/min; Est GFR (African American) 134.7 ml/min; Est GFR (Non-African American) 116.2 ml/min; Magnesium 1.9 mg/dl (1.8-2.4); Potassium 3.5 mmol/L (3.5-5.1)
--- NOTE | 2021-01-22 09:14 | Fluoroscopy Report ---
SMALL BOWEL FOLLOW-THROUGH CLINICAL HISTORY: Small bowel obstruction COMPARISON STUDY: Abdominal CT dated 01/18/2021. TECHNIQUE: An abdominal baller tender radiograph was performed. The patient consumed approximately 600 cc of Optiray 300 mixed with water and a small follow-through was performed. Overhead radiographs and spot compression images were obtained. FINDINGS: The abdominal baller tender radiograph shows a nonobstructed bowel gas pattern. No evidence of intraperitonea l free air is identified. An intrauterine device is seen in the pelvis. Right renal calculi are seen in the upper abdomen. The bony structures appear intact. On the small bowel follow-through, there is normal transit time with contrast identified in the colon at 50 minutes. The duodenum is normal in configuration. The small bowel mucosal pattern is normal. T here is no evidence of stricture or mass. The distal/terminal ileum are normal in appearance on the s pot compression views. Fluoroscopy time: 0.3 minutes Fluoroscopic images: 4 overhead radiographs and 6 spot compression views. IMPRESSION: Normal small bowel follow-through. ACT 112: Negative or not required by law. Electronically signed by: Lenin Negron M.D. 01/22/2021 9:12 AM
--- NOTE | 2021-01-22 09:40 | Gastroenterology Progress Note ---
Date of Service January 22, 2021 Assessment & Plan (1) SBO (small bowel obstruction): Plan: Feeling significantly better this morning. Normal small bowel follow-through imaging without evidence of stricture or obstruction. Recommend continuing supportive care and advance diet as tolerated. Please refer to supervising physician addendum for further recommendations. Admission and Anticipated Discharge Date Admission Date: January 19, 2021 Supervising Physician Co-Signing Physician Notes Pt disharged prior to being seen. Subjective The patient is sitting in a wheelchair in the waiting room and x-ray and denies any complaints this morning. She states she has had some recurrent small bowel obstructions. She states symptoms began Thursday with abdominal pain and she gets sick to her stomach until she vomits. She reports that she has had abdominal surgeries including appendectomy, cholecystectomy in which her common bile duct was cut and she had a subsequent exploratory lap. She denies any abdominal pain this morning she denies nausea vomiting. She reports she is having bowel movements that are thin but formed. She reports this is back to her normal. She has no complaints this morning. Review of Systems Review of Systems: All systems reviewed & are unremarkable except as noted in Subjective Physical Exam Constitutional: WD/WN, vitals as above Respiratory: normal respiratory effort, lungs clear to auscultation Cardiovascular: RRR, no murmur, no edema Gastrointestinal (Abdomen): normal bowel sounds, soft, nontender, no hepatosplenomegaly Musculoskeletal: no lower extremity edema Psychiatric: A+Ox3, euthymic affect Results & Data ([facility]) Vital Signs (Past 12 Hours) Vital Signs Temp Pulse Resp BP Pulse Ox 01/21/21 22:28 36.7 C 60 14 138/85 100 Laboratory Results - last 24 hr 01/22/21 01/22/21 06:12 06:12 WBC 6.87 RBC 4.50 Hgb 13.5 Hct 40.2 MCV 89.3 MCH 30.0 MCHC 33.6 RDW Std Deviation 43.0 RDW Coeff of Lissette 13.2 Plt Count 243 MPV 10.0 Immature Gran % (Auto) 0.1 Neut % (Auto) 57.4 Lymph % (Auto) 28.5 [place] % (Auto) 10.2 Eos % (Auto) 3.5 Baso % (Auto) 0.3 Neut # (Auto) 3.94 Lymph # (Auto) 1.96 [place] # (Auto) 0.70 H Eos # (Auto) 0.24 Baso # (Auto) 0.02 Immature Gran # (Auto) 0.01 Sodium 138 Potassium 3.5 Chloride 108 H Carbon Dioxide 24 Anion Gap 6.0 BUN 6 L Creatinine 0.52 L Est Cr Clr Drug Dosing 139.9 Est GFR ( Amer) 134.7 Est GFR (Non-Af Amer) 116.2 BUN/Creatinine Ratio 11.1 Glucose 89 Calcium 8.1 L Magnesium 1.9 01/22/2021: Small bowel follow-through was obtained and demonstrated Normal small bowel follow-through.
[2021-01-22] MEDS: PANTOprazole 40 MG in SYRINGE 0 ML IV SCH (12:10)
--- NOTE | 2021-01-22 16:49 | Discharge Summary ---
Date of Service January 22, 2021 Admission HPI Per Admitting Provider The patient is a 45-year-old female with a past medical history of recurrent small bowel obstructions, hydroureteronephrosis, history of cholecystectomy and appendectomy. She presents with more acute onset of symptoms than usual that are suggestive of small bowel obstructions. CT scan of abdomen /pelvis did confirm a partial small bowel obstruction, along with an internal hernia, that surgery was made aware of by the ED physician and she felt was acceptable to be admitted to the medicine service overnight. Admission Exam Per Admitting Provider The patient is awake, alert and oriented 3, well developed and well nourished, normocephalic and atraumatic, lying in bed and in no acute distress. HEENT--PERRL, EOMI, mucous membranes and oropharynx dry. Neck--supple. No JVD. No bruits. Thyroid normal, trachea midline, no adenopathy. Heart--normal S1 and S2. No murmurs, rubs or gallops. Lungs--clear bilaterally, no respiratory distress, no accessory muscle use. Abdomen--decreased bowel sounds, soft. Mild generalized tenderness and distention. Mildly tympanitic Extremities--no cyanosis or clubbing. No edema. Dermatologic--skin is normal Neurologic--cranial nerves II through XII grossly intact. Rheumatologic--limited exam Psychiatric--normal affect. Principal Diagnosis Working diagnoses: 1. SBOpresumed mechanical; however, infectious process cannot be ruled out 2. Leukocytosisresolved 3. Hypokalemiareplaced and resolved Discharge Exam General: Resting comfortably in her hospital bed. NAD. Neck: No JVD. Negative hepatojugular reflex Cardiac: RRR without M/G/R Lungs: CTA without W/R/R Abdomen: Abdomen is nondistended. Normoactive X4. Soft and nontender in all quadrants. Extremities: No peripheral clubbing cyanosis or edema Neuro: A&O X4 cranial nerves II through XII are grossly intact no focal neuro deficits Skin: No obvious skin lesions or rashes Discharge Data Allergies Allergy/AdvReac Type Severity Reaction Status Date / Time Penicillins Allergy Severe AMOXICILLIN-ITCHY Verified 01/26/19 00:56 HIVES Consultations 01/19/21 00:49 ED Decision to Admit Stat 01/19/21 08:09 Consult General Surgery Routine: Recs: --agree with obtaining SBFT study --advance diet as tolerated to low residue diet if continuing to improve, can stay on low residue diet upon discharge --will need follow up with [facility] in 1-2 weeks supportive care 01/19/21 17:23 Consult Gastroenterology Routine : Feeling significantly better this morning. Normal small bowel follow-through imaging without evidence of stricture or obstruction. Recommend continuing supportive care and advance diet as tolerated. Ordered Studies 01/18/21 22:20 CT abd pelvis IV con only Stat IMPRESSION: 1. There again noted multiple mildly dilated and thickened loops of small bowel within the right midabdomen with a few additional mildly dilated small bowel loops within the left side of the abdomen. A clear transition point is not identified. This has slightly improved compared to the prior study. Therefore, this favors a partial small bowel obstruction. The clustered loops of bowel within the right upper quadrant with adjacent interloop fluid raise the possibility of an internal hernia. Surgical consultation recommended. 2. Right-sided nephrolithiasis. There is stable mild right hydroureteronephrosis to the level of the ureterovesical junction. However, no obstructing stones identified. 3. Additional findings as described above. KUB done 01/20/2021: IMPRESSION: Loop of mildly dilated small bowel within the right mid abdomen. The findings suggest a persistent partial small bowel obstruction. KUB done 01/21/2021: IMPRESSION: 1. Decreasing right mid abdominal small bowel dilatation. 2. Gas present within nondilated colon. 01/22/21 08:00 FL small bowel follow through Urgent FINDINGS: The abdominal senior principal process engineer radiograph shows a nonobstructed bowel gas pattern. No evidence of intraperitoneal free air is identified. An intrauterine device is seen in the pelvis. Right renal calculi are seen in the upper abdomen. The bony structures appear intact. On the small bowel follow-through, there is normal transit time with contrast identified in the colon at 50 minutes. The duodenum is normal in configuration. The small bowel mucosal pattern is normal. There is no evidence of stricture or mass. The distal/terminal ileum are normal in appearance on the spot compression views. Fluoroscopy time: 0.3 minutes Fluoroscopic images: 4 overhead radiographs and 6 spot compression views. IMPRESSION: Normal small bowel follow-through. Hospital Course (1) SBO (small bowel obstruction): * suspect mechanical etiology * on empiric cipro/flagyl given leukocytosis upfront (which was likely reactive from vomiting). will complete 5 day course. * Patient tolerating oral intake. She is passing flatus, denies abdominal pain/nausea, and has had multiple semiformed BMs. * given recurrent episodes and surgical hx, along with concern for internal hernia suspect may have chronic partial SBO--> small bowel series obtained showing normal transit time * Seen by GI and general surgery who agrees with conservative management * Will discharge to home with continued low residue diet. To follow-up with GI in 1 to 2 weeks (2) Hypokalemia: * replaced/resolved (3) Hernia, internal: See above -- does not appear to be the case. General surgery saw patient-- no surgical intervention given clinical improvement. Appreciate recommendations -Patient to be discharged home after seen and agreed upon by Dr. Higginbotham Total Time Total Time Spent Total Time Spent (In Minutes): 35 minutes Discharge Plan Discharge Items Patient Disposition: Home - Self-Care Reason For Visit: SBO, INTERNAL HERNIA Discharge Diagnosis: 1. Small Bowel Obstruction- resolved Activity: Resume your previous activity Non-emergency contact: Primary Care Provider and Surgeon Call non-emergency contact if: you have any medication questions and your symptoms worsen Follow-up/Referrals: Elroy Borja [Primary Care Provider] - 01/28/21 10:50 am Diet: Low Fiber Addtl Attending Provider Instructions: - maintain a low residue diet over the next 2-4 weeks then slowly advance as tolerated - complete full course of antibiotic therapy --Cipro 500mg twice a day until gone --flagyl 500mg 3x/day until gone (DO NOT TAKE WITH ALCOHOL as will cause severe GI upset. Will cause metallic taste in mouth) - follow up with PCP: 7-10 days - return to the ED for new or worsening symptoms Pending Studies at Discharge: No Stand-Alone Forms: My [facility] [employer] Medications and DC Order Prescriptions: New ciprofloxacin HCl 500 mg tablet 500 mg PO BID Qty: 10 RF: 0 metronidazole [Flagyl] 500 mg tablet 500 mg PO Q8H Qty: 15 RF: 0 No Action No Known Home Medications RF: 0 Discharge Orders: Discharge Order (Routine); Ordered 01/22/21 Ordered By: Edel Goodson/Other Patient Handouts: Small Bowel Obstruction Admission Data Admit Date/Time: 01/19/21 01:09 Attending Provider: Sumit Higginbotham Admit Provider: Roberth Garcia Primary Care Provider: Elroy Borja Other Providers: Roberth Garcia ; Meagan Vo ; Irineo Kamara Other Interventions: Discharge Summary Assessment (RN) Last Done: 01/22/21 12:29 Supervising Physician Co-Signing Physician Notes Patient seen and examined on the day of discharge. I agree with the discharge summary by Edel SANTILLAN. I have reviewed the chart including labs, imaging and plans for discharge. patient doing better, tolerating diet, moved her bowels - SBO: clinically resolving, moving her bowels, no pain, no nausea low residue diet for two weeks complete course of Cipro/Flagyl follow up with GI Coding Level of Care Code Established Pt D/C DAY MANAGEMENT >30 MINS Patient Type Established Diagnoses SBO (small bowel obstruction) K56.609 Hypokalemia E87.6 Hernia, internal K45.8 Time Spent (min) 35
== END 2021-01-22 13:51 | disposition home or self-care (01) | DRG 390 ==
LOC: ED 20:26 → 3E 01-19 01:09 → SUATTDRO 01-19 01:09 → 3E 01-19 02:33

== ENCOUNTER 2022-02-26 04:45 | Inpatient (IN) ==
[2022-02-26] MEDS ORDERED: SODIUM CHLORIDE 0.9% 1000ML 1,000 ML IV STA (05:02)
[2022-02-26 06:12] LABS: Basophils # (auto) 0.02 K/uL (0-0.2); Basophils % (auto) 0.2 %; Eosinophils # (auto) 0.02 K/uL (0-0.50); Eosinophils % (auto) 0.2 %; Hemoglobin 15.3 g/dl (12.0-16.0); Immature Granulocytes # (auto) 0.03 K/uL (0.00-0.02); Immature Granulocytes % (auto) 0.3 %; Lymphocytes # (auto) 1.34 K/uL (1.2-3.4); Mean Corpuscular Hemoglobin 29.3 pg (25.0-34.0); Mean Corpuscular Hgb Conc 33.3 g/dL (32.0-36.0); Monocytes # (auto) 0.27 K/uL (0.24-0.82); Neutrophils # (auto) 7.23 K/uL (1.4-6.5); Neutrophils % (auto) 81.3 %; Platelet Count 309 K/uL (130-400); RDW Coefficient of Variation 13.2 % (11.5-14.5); RDW Standard Deviation 42.5 fL (36.4-46.3); Red Blood Count 5.23 M/uL (3.93-5.22); White Blood Count 8.91 K/ul (4.8-10.8)
[2022-02-26 06:39] LABS: Albumin Globulin Ratio 1.5 (0.9-2); Albumin Level 4.7 gm/dl (3.4-5.0); BUN Creatinine Ratio 15.5 (10-20); Bilirubin,Total 0.8 mg/dl (0.2-1.0); Calcium 9.5 mg/dl (8.5-10.1); Creatinine Clr Calc Pharmacy 100.7 ml/min; Est GFR (African American) 119.2 ml/min; Est GFR (Non-African American) 102.9 ml/min; Globulin 3.2 gm/dl (2.5-4.0); Potassium 4.1 mmol/L (3.5-5.1); Total Protein 7.9 gm/dl (6.0-8.3)
[2022-02-26] MEDS ORDERED: OPTIRAY 300 500mL IV ONE (06:46)
[2022-02-26] MEDS ORDERED: KETOROLAC TROMETHAMINE 15 MG/ML VIAL IV STA (06:48)
[2022-02-26] MEDS ORDERED: ONDANSETRON INJ 2 MG/ML 2 ML VIAL IV STA (06:48)
--- NOTE | 2022-02-26 06:58 | Emergency Department Note ---
Impression & Plan Diffuse abdominal pain, SBO (small bowel obstruction), Vomiting ED Provider Note NAME: UMAIR MONTGOMERY AGE: 46 SEX: F : 1975 ARRIVES VIA: Walk-In INFORMANT: [Patient] ED PROVIDER(S): [Lenin Reyna MD] CHIEF COMPLAINT: Abdominal pain HISTORY OF PRESENT ILLNESS: The patient is a 46-year-old female who presents with around 24 hours of symptoms. Yesterday, she felt nauseated. Last evening, she began having some upper abdominal pain and began vomiting. The pain gets as bad as a 10/10 and then she vomits and the pain is better for a while. She had a few bouts of diarrhea that was nonbloody and was brown in color. There has been no fever, no urinary burning or urgency. No cough or congestion or shortness of breath. The patient feels this may be a partial small bowel obstruction. She has had bowel obstructions before as a result of adhesions. REVIEW OF SYSTEMS: See HPI for pertinent positives and negatives. A total of ten systems were reviewed and were otherwise negative. PMHx/PSHx: See Below SOCIAL HISTORY: See Below. PHYSICAL EXAM: GENERAL: Patient is in no acute distress. HEENT: No acute trauma, normocephalic atraumatic, mucous membranes moist, no nasal congestion, no scleral icterus. NECK: No stridor, no adenopathy, no meningismus, trachea is midline. LUNGS: Clear to auscultation bilaterally, no wheeze, no rhonchi, breath sounds equal. HEART: Without murmurs gallops or rubs, regular rate and rhythm. ABDOMEN: Soft, mildly diffusely tender, no distention, no peritonitis EXTREMITIES: No cyanosis or edema, full range of motion of all the joints without pain or difficulty, no signs for acute trauma. NEUROLOGIC: Oriented x 3, no acute motor or sensory deficits, no focal weakness. SKIN: No rash, no jaundice, no diaphoresis. DIFFERENTIAL DIAGNOSIS: Appendicitis, ovarian cyst, ovarian torsion, ectopic , diverticulitis, UTI, obstruction, mesenteric ischemia, aortic pathology, inflammatory bowel disease, renal colic, PUD, pancreatitis, biliary pathology, hernia, volvulus, constipation, as well as other pathologies. EMERGENCY DEPARTMENT COURSE/PROCEDURES: MEDICAL DECISION MAKING: There is no leukocytosis or worrisome anemia. There is a normal platelet count. No renal failure or significant electrolyte abnormality. No concerning liver enzyme elevation. No evidence for pancreatitis. testing is negative. Urinalysis shows some hematuria and contamination. No signs of infection. COVID test returned negative. Abdominal and pelvis CT shows evidence for at least a partial small bowel obstruction. No diverticulitis, no free air. The patient received IV Toradol, IV saline and IV Zofran, she feels improved. I discussed placing an NG tube, the patient does not want a tube placed. She has done well in the past with just bowel rest, pain control and IV fluids. I did speak with the patient at length about her findings, I talked to case management. The on-call hospitalist was consulted. Past Med/Surg History Medical History Hernia, internal Kidney cysts Kidney stones Leukocytosis Pulmonary embolism Small bowel obstruction Surgical History History of cholecystectomy Hx of appendectomy Family History (Updated 02/26/22 @ 09:51 by Olamide Germain MD) Other Family history non-contributory Social History Smoking Status: Never smoker Hx Alcohol Use: No Hx Substance Use: No Preferred Language: Wolof Communication Ability: Effective Contact Lens Technician Required: No Beliefs That Will Affect Care: None Current Living Situation: Spouse Feels Safe at Home: Yes Assistive Devices: None Allergies Allergies Allergy/AdvReac Type Severity Reaction Status Date / Time Penicillins Allergy Severe AMOXICILLIN-ITCHY Verified 02/26/22 07:13 HIVES Home Meds Home Medications Medication Instructions Recorded Confirmed No Known Home Medications 01/26/19 02/26/22 Results & Data (ED) Vital Signs Vital Signs - 24 hr 02/26/22 04:50 02/26/22 06:01 02/26/22 07:18 Temperature 36.6 C Temperature Source Temporal Artery Scan Pulse Rate 83 Pulse Rate [Finger] 72 58 L Pulse Rhythm [Finger] Regular Respiratory Rate 20 18 18 Respiratory Effort / Characteristics Non-Labored Spontaneous Non-Labored Respiratory Depth Normal Normal Normal Respiratory Pattern Regular Regular Blood Pressure 167/117 H Blood Pressure [Right Arm] 119/89 138/93 Blood Pressure Mean 133 Blood Pressure Mean [Right Arm] 99 108 Blood Pressure Position Sitting Pulse Oximetry 97 99 99 Oxygen Delivery Method Room Air Room Air Room Air Sepsis Recent Fever Within 48 Hours No Sepsis New/Unexplained Change in Mental Status N/A Sepsis Action Taken by Nursing No Action Required 02/26/22 09:15 02/26/22 11:53 Temperature Temperature Source Pulse Rate Pulse Rate [Finger] 87 Pulse Rhythm [Finger] Regular Respiratory Rate 16 Respiratory Effort / Characteristics Non-Labored Respiratory Depth Normal Respiratory Pattern Regular Blood Pressure Blood Pressure [Right Arm] 135/110 H 161/101 H Blood Pressure Mean Blood Pressure Mean [Right Arm] 118 121 Blood Pressure Position Pulse Oximetry 100 Oxygen Delivery Method Room Air Sepsis Recent Fever Within 48 Hours Sepsis New/Unexplained Change in Mental Status Sepsis Action Taken by Assisted Medications Current Medication List: was personally reviewed by me Laboratory Data Attestation: I reviewed the patient's lab results. Result diagrams: 02/26/22 05:40 02/26/22 05:40 Lab Results 02/26/22 02/26/22 02/26/22 Range/Units 05:40 05:40 05:40 WBC 8.91 (4.8-10.8) K/ul RBC 5.23 H (3.93-5.22) M/uL Hgb 15.3 (12.0-16.0) g/dl Hct 46.0 H (34.1-44.9) % MCV 88.0 (80.0-100.0) fL MCH 29.3 (25.0-34.0) pg MCHC 33.3 (32.0-36.0) g/dL RDW Std Deviation 42.5 (36.4-46.3) fL RDW Coeff of Lissette 13.2 (11.5-14.5) % Plt Count 309 (130-400) K/uL MPV 10.0 (9.4-12.3) fL Immature Gran % (Auto) 0.3 % Neut % (Auto) 81.3 % Lymph % (Auto) 15.0 % [place] % (Auto) 3.0 % Eos % (Auto) 0.2 % Baso % (Auto) 0.2 % Neut # (Auto) 7.23 H (1.4-6.5) K/uL Lymph # (Auto) 1.34 (1.2-3.4) K/uL [place] # (Auto) 0.27 (0.24-0.82) K/uL Eos # (Auto) 0.02 (0-0.50) K/uL Baso # (Auto) 0.02 (0-0.2) K/uL Immature Gran # (Auto) 0.03 H (0.00-0.02) K/uL Sodium 138 (136-145) mmol/L Potassium 4.1 (3.5-5.1) mmol/L Chloride 100 (98-107) mmol/L Carbon Dioxide 29 (21-32) mmol/L Anion Gap 9 (3-11) BUN 11 (6-23) mg/dl Creatinine 0.71 (0.6-1.2) mg/dl Est Cr Clr Drug Dosing 100.7 ml/min Est GFR ( Amer) 119.2 ml/min Est GFR (Non-Af Amer) 102.9 ml/min BUN/Creatinine Ratio 15.5 (10-20) Glucose 114 H (70-99(Fasting)) mg/dl Calcium 9.5 (8.5-10.1) mg/dl Total Bilirubin 0.8 (0.2-1.0) mg/dl AST 16 (13-39) U/L ALT 13 (7-52) U/L Alkaline Phosphatase 44 (34-104) U/L Total Protein 7.9 (6.0-8.3) gm/dl Albumin 4.7 (3.4-5.0) gm/dl Globulin 3.2 (2.5-4.0) gm/dl Albumin/Globulin Ratio 1.5 (0.9-2) Lipase 12 (11-82) U/L HCG, Qual Negative (Negative) Urine Color Urine Appearance (Clear) Urine pH (4.5-7.5) Ur Specific [place] (1.000-1.030) Urine Protein (Negative) Urine Glucose (UA) (Negative) Urine Ketones (Negative) Urine Blood (Negative) Urine Nitrite (Negative) Urine Bilirubin (Negative) Urine Urobilinogen (Negative) Ur Leukocyte Esterase (Negative) Urine WBC (Auto) (0-5) /hpf Urine RBC (Auto) (0-4) /hpf U Hyaline Cast (Auto) (0-5) /lpf U Epithel Cells (Auto) (0-5) /lpf Urine Bacteria (Auto) (Negative) SARS-CoV-2, RNA, NAAT (NEGATIVE) 02/26/22 02/26/22 Range/Units 05:40 10:22 WBC (4.8-10.8) K/ul RBC (3.93-5.22) M/uL Hgb (12.0-16.0) g/dl Hct (34.1-44.9) % MCV (80.0-100.0) fL MCH (25.0-34.0) pg MCHC (32.0-36.0) g/dL RDW Std Deviation (36.4-46.3) fL RDW Coeff of Lissette (11.5-14.5) % Plt Count (130-400) K/uL MPV (9.4-12.3) fL Immature Gran % (Auto) % Neut % (Auto) % Lymph % (Auto) % [place] % (Auto) % Eos % (Auto) % Baso % (Auto) % Neut # (Auto) (1.4-6.5) K/uL Lymph # (Auto) (1.2-3.4) K/uL [place] # (Auto) (0.24-0.82) K/uL Eos # (Auto) (0-0.50) K/uL Baso # (Auto) (0-0.2) K/uL Immature Gran # (Auto) (0.00-0.02) K/uL Sodium (136-145) mmol/L Potassium (3.5-5.1) mmol/L Chloride (98-107) mmol/L Carbon Dioxide (21-32) mmol/L Anion Gap (3-11) BUN (6-23) mg/dl Creatinine (0.6-1.2) mg/dl Est Cr Clr Drug Dosing ml/min Est GFR ( Amer) ml/min Est GFR (Non-Af Amer) ml/min BUN/Creatinine Ratio (10-20) Glucose (70-99(Fasting)) mg/dl Calcium (8.5-10.1) mg/dl Total Bilirubin (0.2-1.0) mg/dl AST (13-39) U/L ALT (7-52) U/L Alkaline Phosphatase (34-104) U/L Total Protein (6.0-8.3) gm/dl Albumin (3.4-5.0) gm/dl Globulin (2.5-4.0) gm/dl Albumin/Globulin Ratio (0.9-2) Lipase (11-82) U/L HCG, Qual (Negative) Urine Color Yellow Urine Appearance Cloudy A (Clear) Urine pH 8.0 H (4.5-7.5) Ur Specific [place] 1.020 (1.000-1.030) Urine Protein Trace H (Negative) Urine Glucose (UA) Negative (Negative) Urine Ketones Trace H (Negative) Urine Blood 3+ H (Negative) Urine Nitrite Negative (Negative) Urine Bilirubin Negative (Negative) Urine Urobilinogen Negative (Negative) Ur Leukocyte Esterase Negative (Negative) Urine WBC (Auto) 1-5 (0-5) /hpf Urine RBC (Auto) >30 H (0-4) /hpf U Hyaline Cast (Auto) 1-5 (0-5) /lpf U Epithel Cells (Auto) >30 H (0-5) /lpf Urine Bacteria (Auto) Negative (Negative) SARS-CoV-2, RNA, NAAT NEGATIVE (NEGATIVE) Administered Medications Lactated Ringer's (Lr) 1,000 mls @ 125 mls/hr IV .Q8H BARBARA Stop: 03/28/22 10:14 Last Admin: 02/26/22 10:26 Dose: 125 mls/hr Documented By: ALEJANDRA Discontinued Medications Sodium Chloride (Nss 1000ml) 1,000 mls @ 999 mls/hr IV .Q1H1M STA Stop: 02/26/22 06:02 Last Infusion: 02/26/22 06:51 Dose: 0 mls/hr Documented By: Admin: 02/26/22 05:50 Dose: 999 mls/hr Documented By: GUILLE Ioversol (Optiray 300 500ml) 100 ml IV ONCE ONE Stop: 02/26/22 06:47 Last Admin: 02/26/22 06:46 Dose: 98 ml Documented By: KELSEY Ketorolac Tromethamine (Ketorolac Tromethamine 15 Mg/Ml Vial) 15 mg IV NOW STA Stop: 02/26/22 06:49 Last Admin: 02/26/22 07:15 Dose: 15 mg Documented By: ALEJANDRA Ondansetron HCl (Ondansetron Inj 2 Mg/Ml 2 Ml Vial) 4 mg IV NOW STA Stop: 02/26/22 06:49 Last Admin: 02/26/22 07:15 Dose: 4 mg Documented By: [facility] Imaging Data Radiologist's Impression: Abdomen/Pelvis CT 02/26/22 05:02 CT SCAN OF THE ABDOMEN AND PELVIS WITH IV CONTRAST CLINICAL HISTORY: Generalized abdominal pain. COMPARISON STUDY: Abdominal CT dated 01/18/2021. TECHNIQUE: Following the IV administration of 98 cc of Optiray 300, CT scan of the abdomen and pelvis is performed from the lung bases to the proximal femora. Images are reviewed in the axial, sagittal, and coronal planes. IV contrast was administered without complication. A dose lowering technique was utilized adhering to the principles of ALARA. CT DOSE: 907.58 mGy.cm FINDINGS: Lung bases: The heart is normal in size and without pericardial effusion. The lung bases are clear. There is a small hiatal hernia. Liver: The contrast-enhanced liver is mildly enlarged measuring 19.6 cm in length. The liver demonstrates diminished attenuation suggesting steatosis. There is mild intrahepatic biliary ductal dilatation. The hepatic veins and portal veins are patent. Gallbladder: Surgically absent. Spleen: Normal in size and attenuation. Pancreas: Unremarkable. Adrenal glands: Unremarkable. Kidneys: The contrast enhanced kidneys are normal in size appear there is mild right hydroureteronephrosis. The right ureter is dilated to the level of the bladder, and this is similar to previous. No obstructing stone or lesion is clearly seen. No hydronephrosis is seen in the left The kidneys enhance symmetrically. There are least 2 nonobstructing right renal calculi which measure up to 6 mm. Scattered subcentimeter cortical hypodensities likely represent cysts but are too small for definitive characterization. Abdominal vasculature: The abdominal aorta is normal in course and caliber. Bowel: There are distended and fluid-filled loops of small bowel in the midabdomen measuring up to 3.2 cm in diameter. The distal small bowel loops and colon are decompressed, and the appearance is consistent with a small bowel obstruction. A discrete transition point is not delineated, most likely located in the right lower quadrant. No focally thick walled bowel loops are identified. There is no pneumatosis intestinalis or portal venous gas. There is mild colonic diverticulosis without CT evidence of acute diverticulitis. The appendix is not identified and reported surgically absent. Peritoneum: There is no intraperitoneal free air or abdominal ascites. Lymphadenopathy: None. Pelvic viscera: The bladder is decompressed and the wall appears circumferentially thickened. The uterus is normal as visualized noting an intrauterine device in place. No adnexal lesion is seen. Skeletal structures: No lytic or blastic lesions are seen. Sclerotic change is noted in the sacroiliac joints. IMPRESSION: 1. There is evidence of at least partial small bowel obstruction as detailed above. No discrete transition point is identified, and the appearance is similar to the 01/18/2021 examination. 2. No thick walled bowel loops are identified. There is no pneumatosis intestinalis or portal venous gas. 3. No intraperitoneal free air is identified. 4. There is mild right hydroureteronephrosis. The right ureter is dilated to the level of the bladder with no obstructing stone or lesion identified. This is similar to prior studies. 5. Right-sided nephrolithiasis. 6. Additional findings as above. ACT 112: Negative or not required by law. Electronically signed by: Lenin Negron M.D. 02/26/2022 7:37 AM Discharge Plan Visit Data Chief Complaint: Abdominal Pain Stated Complaint: VOMITING,ABDOMINAL PAIN ED Provider: Lenin Reyna Discharge Problem: Diffuse abdominal pain, SBO (small bowel obstruction), Vomiting Patient Disposition: Admitted As Inpatient Condition: Fair Forms Stand Alone Forms: LE TOTE Prescriptions Prescriptions: No Action No Known Home Medications Referrals Referrals: Elroy Borja [Primary Care Provider] -
[2022-02-26 07:28] LABS: Appearance Urine Cloudy (Clear); Bacteria Urine Automated Negative (Negative); Bilirubin Urine Negative (Negative); Blood Urine 3+ (Negative); Color Urine Yellow; Epithelial Cell Urine Auto >30 /lpf (0-5); Glucose Urine UA Negative (Negative); Ketones Urine Trace (Negative); Leukocyte Esterase Urine Negative (Negative); Nitrite Urine Negative (Negative); RBC Urine Automated >30 /hpf (0-4); Urobilinogen Urine Negative (Negative)
[2022-02-26 07:29] LABS: Pregnancy Test, Serum Negative (Negative)
[2022-02-26 07:36] LABS: Protein Urine Trace (Negative)
--- NOTE | 2022-02-26 07:39 | CT Scan Report ---
CT SCAN OF THE ABDOMEN AND PELVIS WITH IV CONTRAST CLINICAL HISTORY: Generalized abdominal pain. COMPARISON STUDY: Abdominal CT dated 01/18/2021. TECHNIQUE: Following the IV administration of 98 cc of Optiray 300, CT scan of the abdomen and pelvi s is performed from the lung bases to the proximal femora. Images are reviewed in the axial, sagittal , and coronal planes. IV contrast was administered without complication. A dose lowering technique wa s utilized adhering to the principles of ALARA. CT DOSE: 907.58 mGy.cm FINDINGS: Lung bases: The heart is normal in size and without pericardial effusion. The lung bases are clear. T here is a small hiatal hernia. Liver: The contrast-enhanced liver is mildly enlarged measuring 19.6 cm in length. The liver demonstr ates diminished attenuation suggesting steatosis. There is mild intrahepatic biliary ductal dilatatio n. The hepatic veins and portal veins are patent. Gallbladder: Surgically absent. Spleen: Normal in size and attenuation. Pancreas: Unremarkable. Adrenal glands: Unremarkable. Kidneys: The contrast enhanced kidneys are normal in size appear there is mild right hydroureteroneph rosis. The right ureter is dilated to the level of the bladder, and this is similar to previous. No o bstructing stone or lesion is clearly seen. No hydronephrosis is seen in the left The kidneys enhance symmetrically. There are least 2 nonobstructing right renal calculi which measure up to 6 mm. Scatte red subcentimeter cortical hypodensities likely represent cysts but are too small for definitive rudy acterization. Abdominal vasculature: The abdominal aorta is normal in course and caliber. Bowel: There are distended and fluid-filled loops of small bowel in the midabdomen measuring up to 3. 2 cm in diameter. The distal small bowel loops and colon are decompressed, and the appearance is cons istent with a small bowel obstruction. A discrete transition point is not delineated, most likely loc ated in the right lower quadrant. No focally thick walled bowel loops are identified. There is no pne umatosis intestinalis or portal venous gas. There is mild colonic diverticulosis without CT evidence of acute diverticulitis. The appendix is not identified and reported surgically absent. Peritoneum: There is no intraperitoneal free air or abdominal ascites. Lymphadenopathy: None. Pelvic viscera: The bladder is decompressed and the wall appears circumferentially thickened. The sweta nancy is normal as visualized noting an intrauterine device in place. No adnexal lesion is seen. Skeletal structures: No lytic or blastic lesions are seen. Sclerotic change is noted in the sacroilia c joints. IMPRESSION: 1. There is evidence of at least partial small bowel obstruction as detailed above. No discrete trans ition point is identified, and the appearance is similar to the 01/18/2021 examination. 2. No thick walled bowel loops are identified. There is no pneumatosis intestinalis or portal venous gas. 3. No intraperitoneal free air is identified. 4. There is mild right hydroureteronephrosis. The right ureter is dilated to the level of the bladder with no obstructing stone or lesion identified. This is similar to prior studies. 5. Right-sided nephrolithiasis. 6. Additional findings as above. ACT 112: Negative or not required by law. Electronically signed by: Lenin Negron M.D. 02/26/2022 7:37 AM
--- NOTE | 2022-02-26 09:52 | History & Physical Report ---
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 s/p appendectomy and cholecystectomy No fevers/chills, nonbloody emesis and stool. 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 has been seen by Urology-f/u as outpt no obstructing stones noted UA appears contaminated (3) History of pulmonary embolism: Plan: history many years ago of PE-unknown cause but was advised to change from Depo Provera IM to Mirena IUD which is currently in place -SCDs for DVT prevention hold on Lovenox for now until ensure no surgery will be needed Plan Dispo-admit to med/surg FULL CODE but would not want prolonged life support if poor prognosis or "vegetative state" and mother she designates as HCPOA History of Present Illness Chief Complaint: abdominal pain Primary Care Provider: Elroy Borja This pt is a 46 yo female with a h/o recurrent small bowel obstructions, hydroureteronephrosis, history of cholecystectomy and appendectomy, and PE who presents to the ER with 3-4 days of nausea followed by onset acutely last evening of upper abd pain and then vomiting. Pain severe at times at a 10/10. Had a few episodes of diarrhea, nonbloody. Found on CT abd/pel to have a SBO with no clear delineation of transition point but likely somewhere in RLQ. In ER, she was given Toradol, 1L NS, Zofran. When I saw her, she was already feeling better, mild pain, no further nausea or vomiting. Hospitalist service asked to admit. Allergies Allergy/AdvReac Type Severity Reaction Status Date / Time Penicillins Allergy Severe AMOXICILLIN-ITCHY Verified 02/26/22 07:13 HIVES Home Medications Medication Instructions Recorded Confirmed Type No Known Home Medications 01/26/19 02/26/22 History Past Med/Surg History Medical History Hernia, internal Kidney cysts Kidney stones Leukocytosis Pulmonary embolism Small bowel obstruction Surgical History History of cholecystectomy Hx of appendectomy Family History (Updated 02/26/22 @ 09:51 by Olamide Germain MD) Other Family history non-contributory Social History Smoking Status: Never smoker Hx Alcohol Use: No Hx Substance Use: No Preferred Language: Thai Communication Ability: Effective Blueprint Cutter Required: No Beliefs That Will Affect Care: None Current Living Situation: Spouse Feels Safe at Home: Yes Assistive Devices: None Review of Systems Review of Systems: All systems reviewed & are unremarkable except as noted in HPI & below Physical Exam Constitutional: WD/WN, vitals as above Eyes: PERRL, conjunctivae normal, anicteric sclerae ENMT: external ear and nose normal, oropharynx normal (except brown tongue) Neck: trachea midline, no thyromegaly Respiratory: normal respiratory effort, lungs clear to auscultation Cardiovascular: RRR, no murmur, no edema Chest (Breasts): Chest: normal inspection of chest Gastrointestinal (Abdomen): Inspection/Auscultation: abdomen normal to inspection and normal bowel sounds; abdomen not distended Percussion/Palpation: + abdomen tender (mild TTP periumbilical region w/o guarding) and abdomen soft; abdomen not rigid, no hernia and no abdominal mass Musculoskeletal: Extremities: extremities normal to inspection; no cyanosis and no clubbing Skin: no rashes, warm and dry Neurologic: moves all extremities and awake; no focal motor deficits Psychiatric: A+Ox3, euthymic affect Lymphatic: no lymphedema Results & Data Results & Data ([facility]) Vital Signs (Past 12 Hours) Vital Signs Temp Pulse Pulse Resp BP BP Pulse Ox 02/26/22 07:18 58 L 18 138/93 99 08/24/22 06:01 72 18 119/89 99 02/26/22 04:50 36.6 C 83 20 167/117 H 97 O2 Del Method 02/26/22 07:18 Room Air 02/26/22 06:01 Room Air 02/26/22 04:50 Room Air Laboratory Results 02/26/22 02/26/22 02/26/22 Range/Units 05:40 05:40 05:40 WBC (4.8-10.8) K/ul RBC (3.93-5.22) M/uL Hgb (12.0-16.0) g/dl Hct (34.1-44.9) % MCV (80.0-100.0) fL MCH (25.0-34.0) pg MCHC (32.0-36.0) g/dL RDW Std Deviation (36.4-46.3) fL RDW Coeff of Lissette (11.5-14.5) % Plt Count (130-400) K/uL MPV (9.4-12.3) fL Immature Gran % (Auto) % Neut % (Auto) % Lymph % (Auto) % Oliver % (Auto) % Eos % (Auto) % Baso % (Auto) % Neut # (Auto) (1.4-6.5) K/uL Lymph # (Auto) (1.2-3.4) K/uL Oliver # (Auto) (0.24-0.82) K/uL Eos # (Auto) (0-0.50) K/uL Baso # (Auto) (0-0.2) K/uL Immature Gran # (Auto) (0.00-0.02) K/uL Sodium 138 (136-145) mmol/L Potassium 4.1 (3.5-5.1) mmol/L Chloride 100 (98-107) mmol/L Carbon Dioxide 29 (21-32) mmol/L Anion Gap 9 (3-11) BUN 11 (6-23) mg/dl Creatinine 0.71 (0.6-1.2) mg/dl Est Cr Clr Drug Dosing 100.7 ml/min Est GFR ( Amer) 119.2 ml/min Est GFR (Non-Af Amer) 102.9 ml/min BUN/Creatinine Ratio 15.5 (10-20) Glucose 114 H (70-99(Fasting)) mg/dl Calcium 9.5 (8.5-10.1) mg/dl Total Bilirubin 0.8 (0.2-1.0) mg/dl AST 16 (13-39) U/L ALT 13 (7-52) U/L Alkaline Phosphatase 44 (34-104) U/L Total Protein 7.9 (6.0-8.3) gm/dl Albumin 4.7 (3.4-5.0) gm/dl Globulin 3.2 (2.5-4.0) gm/dl Albumin/Globulin Ratio 1.5 (0.9-2) Lipase 12 (11-82) U/L HCG, Qual Negative (Negative) Urine Color Yellow Urine Appearance Cloudy A (Clear) Urine pH 8.0 H (4.5-7.5) Ur Specific [place] 1.020 (1.000-1.030) Urine Protein Trace H (Negative) Urine Glucose (UA) Negative (Negative) Urine Ketones Trace H (Negative) Urine Blood 3+ H (Negative) Urine Nitrite Negative (Negative) Urine Bilirubin Negative (Negative) Urine Urobilinogen Negative (Negative) Ur Leukocyte Esterase Negative (Negative) Urine WBC (Auto) 1-5 (0-5) /hpf Urine RBC (Auto) >30 H (0-4) /hpf U Hyaline Cast (Auto) 1-5 (0-5) /lpf U Epithel Cells (Auto) >30 H (0-5) /lpf Urine Bacteria (Auto) Negative (Negative) 02/26/22 Range/Units 05:40 WBC 8.91 (4.8-10.8) K/ul RBC 5.23 H (3.93-5.22) M/uL Hgb 15.3 (12.0-16.0) g/dl Hct 46.0 H (34.1-44.9) % MCV 88.0 (80.0-100.0) fL MCH 29.3 (25.0-34.0) pg MCHC 33.3 (32.0-36.0) g/dL RDW Std Deviation 42.5 (36.4-46.3) fL RDW Coeff of Lissette 13.2 (11.5-14.5) % Plt Count 309 (130-400) K/uL MPV 10.0 (9.4-12.3) fL Immature Gran % (Auto) 0.3 % Neut % (Auto) 81.3 % Lymph % (Auto) 15.0 % Oliver % (Auto) 3.0 % Eos % (Auto) 0.2 % Baso % (Auto) 0.2 % Neut # (Auto) 7.23 H (1.4-6.5) K/uL Lymph # (Auto) 1.34 (1.2-3.4) K/uL Oliver # (Auto) 0.27 (0.24-0.82) K/uL Eos # (Auto) 0.02 (0-0.50) K/uL Baso # (Auto) 0.02 (0-0.2) K/uL Immature Gran # (Auto) 0.03 H (0.00-0.02) K/uL Sodium (136-145) mmol/L Potassium (3.5-5.1) mmol/L Chloride (98-107) mmol/L Carbon Dioxide (21-32) mmol/L Anion Gap (3-11) BUN (6-23) mg/dl Creatinine (0.6-1.2) mg/dl Est Cr Clr Drug Dosing ml/min Est GFR ( Amer) ml/min Est GFR (Non-Af Amer) ml/min BUN/Creatinine Ratio (10-20) Glucose (70-99(Fasting)) mg/dl Calcium (8.5-10.1) mg/dl Total Bilirubin (0.2-1.0) mg/dl AST (13-39) U/L ALT (7-52) U/L Alkaline Phosphatase (34-104) U/L Total Protein (6.0-8.3) gm/dl Albumin (3.4-5.0) gm/dl Globulin (2.5-4.0) gm/dl Albumin/Globulin Ratio (0.9-2) Lipase (11-82) U/L HCG, Qual (Negative) Urine Color Urine Appearance (Clear) Urine pH (4.5-7.5) Ur Specific [place] (1.000-1.030) Urine Protein (Negative) Urine Glucose (UA) (Negative) Urine Ketones (Negative) Urine Blood (Negative) Urine Nitrite (Negative) Urine Bilirubin (Negative) Urine Urobilinogen (Negative) Ur Leukocyte Esterase (Negative) Urine WBC (Auto) (0-5) /hpf Urine RBC (Auto) (0-4) /hpf U Hyaline Cast (Auto) (0-5) /lpf U Epithel Cells (Auto) (0-5) /lpf Urine Bacteria (Auto) (Negative) Diagnostic Findings Abdomen/Pelvis CT 02/26/22 05:02 CT SCAN OF THE ABDOMEN AND PELVIS WITH IV CONTRAST CLINICAL HISTORY: Generalized abdominal pain. COMPARISON STUDY: Abdominal CT dated 01/18/2021. TECHNIQUE: Following the IV administration of 98 cc of Optiray 300, CT scan of the abdomen and pelvis is performed from the lung bases to the proximal femora. Images are reviewed in the axial, sagittal, and coronal planes. IV contrast was administered without complication. A dose lowering technique was utilized adhering to the principles of ALARA. CT DOSE: 907.58 mGy.cm FINDINGS: Lung bases: The heart is normal in size and without pericardial effusion. The lung bases are clear. There is a small hiatal hernia. Liver: The contrast-enhanced liver is mildly enlarged measuring 19.6 cm in length. The liver demonstrates diminished attenuation suggesting steatosis. There is mild intrahepatic biliary ductal dilatation. The hepatic veins and portal veins are patent. Gallbladder: Surgically absent. Spleen: Normal in size and attenuation. Pancreas: Unremarkable. Adrenal glands: Unremarkable. Kidneys: The contrast enhanced kidneys are normal in size appear there is mild right hydroureteronephrosis. The right ureter is dilated to the level of the bladder, and this is similar to previous. No obstructing stone or lesion is clearly seen. No hydronephrosis is seen in the left The kidneys enhance symmetrically. There are least 2 nonobstructing right renal calculi which measure up to 6 mm. Scattered subcentimeter cortical hypodensities likely represent cysts but are too small for definitive characterization. Abdominal vasculature: The abdominal aorta is normal in course and caliber. Bowel: There are distended and fluid-filled loops of small bowel in the midabdomen measuring up to 3.2 cm in diameter. The distal small bowel loops and colon are decompressed, and the appearance is consistent with a small bowel obstruction. A discrete transition point is not delineated, most likely located in the right lower quadrant. No focally thick walled bowel loops are identified. There is no pneumatosis intestinalis or portal venous gas. There is mild colonic diverticulosis without CT evidence of acute diverticulitis. The appendix is not identified and reported surgically absent. Peritoneum: There is no intraperitoneal free air or abdominal ascites. Lymphadenopathy: None. Pelvic viscera: The bladder is decompressed and the wall appears circumferentially thickened. The uterus is normal as visualized noting an intrauterine device in place. No adnexal lesion is seen. Skeletal structures: No lytic or blastic lesions are seen. Sclerotic change is noted in the sacroiliac joints. IMPRESSION: 1. There is evidence of at least partial small bowel obstruction as detailed above. No discrete transition point is identified, and the appearance is similar to the 01/18/2021 examination. 2. No thick walled bowel loops are identified. There is no pneumatosis intestinalis or portal venous gas. 3. No intraperitoneal free air is identified. 4. There is mild right hydroureteronephrosis. The right ureter is dilated to the level of the bladder with no obstructing stone or lesion identified. This is similar to prior studies. 5. Right-sided nephrolithiasis. 6. Additional findings as above. ACT 112: Negative or not required by law. Electronically signed by: Lenin Negron M.D. 02/26/2022 7:37 AM ECG Additional Comments: no ECG performed in ER Code Status & VTE Plan Code Status FULL CODE VTE Prophylaxis Plan VTE Prophylaxis will be ordered: Yes PG Care Time/CCT Total # of Minutes Spent Total Time Spent with Patient: Total time spent is greater than 50% in coordination of care (as documented) at patient's floor/unit and/or counseling patient: Coding Level of Care Code 53517 Initial Inpt Care Lvl 2 Diagnoses SBO (small bowel obstruction) K56.609 Hydroureteronephrosis N13.30 History of pulmonary embolism Z86.711
[2022-02-26] MEDS: LACTATED RINGER'S 1,000 ML IV SCH ×2 (10:26→18:20)
[2022-02-26] MEDS ORDERED: MoRPHine SULFATE 2 MG/ML CARP IV PRN (13:59)
[2022-02-26] MEDS ORDERED: ONDANSETRON INJ 2 MG/ML 2 ML VIAL IV PRN (13:59)
[2022-02-26] MEDS ORDERED: ACETAMINOPHEN 1,000 MG/100 ML VIAL IV PRN (13:59)
--- NOTE | 2022-02-26 15:44 | Surgery Consultation ---
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 She states her symptoms were similar to her prior small bowel obstructions but not as severe. She had a CT scan of the abdomen pelvis with IV contrast showing dilated small bowel consistent with a partial small bowel obstruction with no clear transition point but likely in the right lower quadrant. Labs show no leukocytosis. She is currently pain-free, nausea and vomiting have resolved. Abdominal examination is benign at this time. Plan: Discussed with patient her CT scan findings consistent with a partial small bowel obstruction. Discussed conservative management with bowel rest, IV fluids, pain management as needed. She currently is feeling much better and currently pain-free and abdominal examination was benign. May be able to advance to clear liquids starting tomorrow. We will continue to follow. Discussed with Dr. Rodriguez who independently evaluated patient. Please see addendum for further recommendations and plan Supervising Physician Co-Signing Physician Notes I have seen and examined the patient personally and agree with the above assessment and plan. She has a partial small bowel obstruction, which she has had few times in the past. They have all resolved with conservative management. We will place her on bowel rest, IV fluids, pain management. She is already starting to feel better. We will observe her for now. History of Present Illness Reason for Consultation: recurrent partial SBO Requesting Physician: Olamide Germain MD Attending Physician: Olamide Germain MD History of Present Illness Shira is a pleasant 46-year-old female with history of recurrent partial small bowel obstructions who presented to the emergency room with complaint of generalized abdominal pain with nausea and vomiting that started last evening suddenly after eating dinner. She also had some diarrhea following eating dinner. This pain was similar to her prior episodes of partial small bowel obstruction. She was last here at [facility] in January 2021 with a partial small bowel obstruction and question of an internal hernia however she improved with conservative management and a small bowel follow-through was obtained during that admission which was normal. She states this time the pain and vomiting is not as severe as prior episodes. She has a history of laparoscopic cholecystectomy around age 19 after her which unfortunately had a complication of transection of common bile duct and required emergent exploratory laparotomy surgery. She also had a laparoscopic appendectomy following cholecystectomy surgery. No other abdominal surgeries. Since evaluation in the emergency room she states she is feeling better. Her pain is currently gone. Her nausea and vomiting have resolved. She states her abdomen was distended and firm but is now soft. She is not passing any gas yet. Allergies Allergy/AdvReac Type Severity Reaction Status Date / Time Penicillins Allergy Severe AMOXICILLIN-ITCHY Verified 02/26/22 07:13 HIVES Home Medications Medication Instructions Recorded Confirmed Type No Known Home Medications 01/26/19 02/26/22 History Patient History Medical History (Updated 02/27/22 @ 21:41 by Olamide Germain MD) Hernia, internal Kidney cysts Kidney stones Leukocytosis Pulmonary embolism Small bowel obstruction Surgical History (Updated 02/26/22 @ 16:08 by Yenni Tolliver PA-C) History of cholecystectomy Hx of appendectomy Status post exploratory laparotomy History of common bile duct injury during lap kinga required unknown repair with ex lap Family History (Updated 02/26/22 @ 09:51 by Olamide Germain MD) Other Family history non-contributory Social History Smoking Status: Never smoker Hx Alcohol Use: Yes Hx Substance Use: No Preferred Language: Cypriot Communication Ability: Effective [employer] Worker Leader Required: No Beliefs That Will Affect Care: None Current Living Situation: Spouse Current Living Situation Comment: Home with Other Information That Helps Us Care for You: No Feels Safe at Home: Yes Safety Concerns: Feels Safe At This Time Assistive Devices: None Physical Exam Constitutional: WD/WN, vitals as above + obese; no acute distress and not ill appearing Neck: normal visual inspection and trachea midline Respiratory: normal respiratory effort; no respiratory distress Gastrointestinal (Abdomen): Inspection/Auscultation: abdomen normal to inspection, + abdominal surgical scar (Right upper quadrant Cholecystectomy scar) and + hypoactive bowel sounds; abdomen not distended and + abnormal bowel sounds Percussion/Palpation: abdomen soft; abdomen nontender, no guarding and abdomen not rigid Skin: no rashes, warm and dry Psychiatric: A+Ox3, euthymic affect Results & Data ([place]) Vital Signs (Past 12 Hours) Vital Signs Temp Pulse Pulse Resp BP BP Pulse Ox 02/26/22 14:25 65 18 144/108 H 97 02/26/22 14:19 72 18 144/108 H 97 02/26/22 11:53 161/101 H 02/26/22 09:15 87 16 135/110 H 100 02/26/22 07:18 58 L 18 138/93 99 02/26/22 06:01 72 18 119/89 99 02/26/22 04:50 36.6 C 83 20 167/117 H 97 O2 Del Method 02/26/22 14:25 02/26/22 14:19 02/26/22 11:53 02/26/22 09:15 Room Air 02/26/22 07:18 Room Air 02/26/22 06:01 Room Air 02/26/22 04:50 Room Air Laboratory Results 02/26/22 02/26/22 02/26/22 Range/Units 10:22 05:40 05:40 WBC (4.8-10.8) K/ul RBC (3.93-5.22) M/uL Hgb (12.0-16.0) g/dl Hct (34.1-44.9) % MCV (80.0-100.0) fL MCH (25.0-34.0) pg MCHC (32.0-36.0) g/dL RDW Std Deviation (36.4-46.3) fL RDW Coeff of Lissette (11.5-14.5) % Plt Count (130-400) K/uL MPV (9.4-12.3) fL Immature Gran % (Auto) % Neut % (Auto) % Lymph % (Auto) % [place] % (Auto) % Eos % (Auto) % Baso % (Auto) % Neut # (Auto) (1.4-6.5) K/uL Lymph # (Auto) (1.2-3.4) K/uL [place] # (Auto) (0.24-0.82) K/uL Eos # (Auto) (0-0.50) K/uL Baso # (Auto) (0-0.2) K/uL Immature Gran # (Auto) (0.00-0.02) K/uL Sodium (136-145) mmol/L Potassium (3.5-5.1) mmol/L Chloride (98-107) mmol/L Carbon Dioxide (21-32) mmol/L Anion Gap (3-11) BUN (6-23) mg/dl Creatinine (0.6-1.2) mg/dl Est Cr Clr Drug Dosing ml/min Est GFR ( Amer) ml/min Est GFR (Non-Af Amer) ml/min BUN/Creatinine Ratio (10-20) Glucose (70-99(Fasting)) mg/dl Calcium (8.5-10.1) mg/dl Total Bilirubin (0.2-1.0) mg/dl AST (13-39) U/L ALT (7-52) U/L Alkaline Phosphatase (34-104) U/L Total Protein (6.0-8.3) gm/dl Albumin (3.4-5.0) gm/dl Globulin (2.5-4.0) gm/dl Albumin/Globulin Ratio (0.9-2) Lipase (11-82) U/L HCG, Qual Negative (Negative) Urine Color Yellow Urine Appearance Cloudy A (Clear) Urine pH 8.0 H (4.5-7.5) Ur Specific [place] 1.020 (1.000-1.030) Urine Protein Trace H (Negative) Urine Glucose (UA) Negative (Negative) Urine Ketones Trace H (Negative) Urine Blood 3+ H (Negative) Urine Nitrite Negative (Negative) Urine Bilirubin Negative (Negative) Urine Urobilinogen Negative (Negative) Ur Leukocyte Esterase Negative (Negative) Urine WBC (Auto) 1-5 (0-5) /hpf Urine RBC (Auto) >30 H (0-4) /hpf U Hyaline Cast (Auto) 1-5 (0-5) /lpf U Epithel Cells (Auto) >30 H (0-5) /lpf Urine Bacteria (Auto) Negative (Negative) SARS-CoV-2, RNA, NAAT NEGATIVE (NEGATIVE) 02/26/22 02/26/22 Range/Units 05:40 05:40 WBC 8.91 (4.8-10.8) K/ul RBC 5.23 H (3.93-5.22) M/uL Hgb 15.3 (12.0-16.0) g/dl Hct 46.0 H (34.1-44.9) % MCV 88.0 (80.0-100.0) fL MCH 29.3 (25.0-34.0) pg MCHC 33.3 (32.0-36.0) g/dL RDW Std Deviation 42.5 (36.4-46.3) fL RDW Coeff of Lissette 13.2 (11.5-14.5) % Plt Count 309 (130-400) K/uL MPV 10.0 (9.4-12.3) fL Immature Gran % (Auto) 0.3 % Neut % (Auto) 81.3 % Lymph % (Auto) 15.0 % [place] % (Auto) 3.0 % Eos % (Auto) 0.2 % Baso % (Auto) 0.2 % Neut # (Auto) 7.23 H (1.4-6.5) K/uL Lymph # (Auto) 1.34 (1.2-3.4) K/uL [place] # (Auto) 0.27 (0.24-0.82) K/uL Eos # (Auto) 0.02 (0-0.50) K/uL Baso # (Auto) 0.02 (0-0.2) K/uL Immature Gran # (Auto) 0.03 H (0.00-0.02) K/uL Sodium 138 (136-145) mmol/L Potassium 4.1 (3.5-5.1) mmol/L Chloride 100 (98-107) mmol/L Carbon Dioxide 29 (21-32) mmol/L Anion Gap 9 (3-11) BUN 11 (6-23) mg/dl Creatinine 0.71 (0.6-1.2) mg/dl Est Cr Clr Drug Dosing 100.7 ml/min Est GFR ( Amer) 119.2 ml/min Est GFR (Non-Af Amer) 102.9 ml/min BUN/Creatinine Ratio 15.5 (10-20) Glucose 114 H (70-99(Fasting)) mg/dl Calcium 9.5 (8.5-10.1) mg/dl Total Bilirubin 0.8 (0.2-1.0) mg/dl AST 16 (13-39) U/L ALT 13 (7-52) U/L Alkaline Phosphatase 44 (34-104) U/L Total Protein 7.9 (6.0-8.3) gm/dl Albumin 4.7 (3.4-5.0) gm/dl Globulin 3.2 (2.5-4.0) gm/dl Albumin/Globulin Ratio 1.5 (0.9-2) Lipase 12 (11-82) U/L HCG, Qual (Negative) Urine Color Urine Appearance (Clear) Urine pH (4.5-7.5) Ur Specific [place] (1.000-1.030) Urine Protein (Negative) Urine Glucose (UA) (Negative) Urine Ketones (Negative) Urine Blood (Negative) Urine Nitrite (Negative) Urine Bilirubin (Negative) Urine Urobilinogen (Negative) Ur Leukocyte Esterase (Negative) Urine WBC (Auto) (0-5) /hpf Urine RBC (Auto) (0-4) /hpf U Hyaline Cast (Auto) (0-5) /lpf U Epithel Cells (Auto) (0-5) /lpf Urine Bacteria (Auto) (Negative) SARS-CoV-2, RNA, NAAT (NEGATIVE) Diagnostic Findings CT SCAN OF THE ABDOMEN AND PELVIS WITH IV CONTRAST CLINICAL HISTORY: Generalized abdominal pain. COMPARISON STUDY: Abdominal CT dated 01/18/2021. TECHNIQUE: Following the IV administration of 98 cc of Optiray 300, CT scan of the abdomen and pelvis is performed from the lung bases to the proximal femora. Images are reviewed in the axial, sagittal, and coronal planes. IV contrast was administered without complication. A dose lowering technique was utilized adhering to the principles of ALARA. CT DOSE: 907.58 mGy.cm FINDINGS: Lung bases: The heart is normal in size and without pericardial effusion. The lung bases are clear. There is a small hiatal hernia. Liver: The contrast-enhanced liver is mildly enlarged measuring 19.6 cm in length. The liver demonstrates diminished attenuation suggesting steatosis. There is mild intrahepatic biliary ductal dilatation. The hepatic veins and portal veins are patent. Gallbladder: Surgically absent. Spleen: Normal in size and attenuation. Pancreas: Unremarkable. Adrenal glands: Unremarkable. Kidneys: The contrast enhanced kidneys are normal in size appear there is mild right hydroureteronephrosis. The right ureter is dilated to the level of the bladder, and this is similar to previous. No obstructing stone or lesion is clearly seen. No hydronephrosis is seen in the left The kidneys enhance symmetrically. There are least 2 nonobstructing right renal calculi which measure up to 6 mm. Scattered subcentimeter cortical hypodensities likely represent cysts but are too small for definitive characterization. Abdominal vasculature: The abdominal aorta is normal in course and caliber. Bowel: There are distended and fluid-filled loops of small bowel in the midabdomen measuring up to 3.2 cm in diameter. The distal small bowel loops and colon are decompressed, and the appearance is consistent with a small bowel obstruction. A discrete transition point is not delineated, most likely located in the right lower quadrant. No focally thick walled bowel loops are identified. There is no pneumatosis intestinalis or portal venous gas. There is mild colonic diverticulosis without CT evidence of acute diverticulitis. The appendix is not identified and reported surgically absent. Peritoneum: There is no intraperitoneal free air or abdominal ascites. Lymphadenopathy: None. Pelvic viscera: The bladder is decompressed and the wall appears circumferent ially thickened. The uterus is normal as visualized noting an intrauterine device in place. No adnexal lesion is seen. Skeletal structures: No lytic or blastic lesions are seen. Sclerotic change is n oted in the sacroiliac joints. IMPRESSION: 1. There is evidence of at least partial small bowel obstruction as detailed above. No discrete transition point is identified, and the appearance is similar to the 01/18/2021 examination. 2. No thick walled bowel loops are identified. There is no pneumatosis intestinalis or portal venous gas. 3. No intraperitoneal free air is identified. 4. There is mild right hydroureteronephrosis. The right ureter is dilated to the level of the bladder with no obstructing stone or lesion identified. This is similar to prior studies. 5. Right-sided nephrolithiasis. 6. Additional findings as above. (1) Vomiting Nausea presence: with nausea Vomiting type: unspecified Qualified Code(s): R11.2 - Nausea with vomiting, unspecified
--- NOTE | 2022-02-26 16:27 | Electrocardiogram Report ---
Test Reason : Blood Pressure : / mmHG Vent. Rate : 062 BPM Atrial Rate : 062 BPM P-R Int : 158 ms QRS Dur : 082 ms QT Int : 438 ms P-R-T Axes : 033 000 029 degrees QTc Int : 444 ms Poor data quality, interpretation may be adversely affected Normal sinus rhythm with sinus arrhythmia Normal ECG When compared with ECG of 17-MAY-2005 03:14, Vent. rate has decreased BY 54 BPM Confirmed by Justice Davis [id number]) on 02/26/2022 4:26:41 PM Referred By: REFERRED SELF Confirmed By:Justice Davis
[2022-02-27] MEDS: LACTATED RINGER'S 1,000 ML IV SCH ×3 (01:28→17:04)
[2022-02-27 07:57] LABS: Basophils # (auto) 0.02 K/uL (0-0.2); Basophils % (auto) 0.3 %; Eosinophils # (auto) 0.18 K/uL (0-0.50); Eosinophils % (auto) 2.5 %; Hematocrit (blood only) 40.5 % (34.1-44.9); Hemoglobin 13.5 g/dl (12.0-16.0); Immature Granulocytes # (auto) 0.02 K/uL (0.00-0.02); Immature Granulocytes % (auto) 0.3 %; Lymphocytes # (auto) 2.95 K/uL (1.2-3.4); Lymphocytes % (auto) 40.8 %; Mean Corpuscular Hemoglobin 29.5 pg (25.0-34.0); Mean Corpuscular Hgb Conc 33.3 g/dL (32.0-36.0); Mean Corpuscular Volume 88.4 fL (80.0-100.0); Mean Platelet Volume 10.1 fL (9.4-12.3); Monocytes # (auto) 0.47 K/uL (0.24-0.82); Monocytes % (auto) 6.5 %; Neutrophils # (auto) 3.59 K/uL (1.4-6.5); Neutrophils % (auto) 49.6 %; Platelet Count 252 K/uL (130-400); RDW Coefficient of Variation 13.2 % (11.5-14.5); RDW Standard Deviation 42.4 fL (36.4-46.3); Red Blood Count 4.58 M/uL (3.93-5.22); White Blood Count 7.23 K/ul (4.8-10.8)
[2022-02-27 08:35] LABS: BUN Creatinine Ratio 13.1 (10-20); Calcium 8.4 mg/dl (8.5-10.1); Creatinine Clr Calc Pharmacy 117.2 ml/min; Est GFR (African American) 126.9 ml/min; Est GFR (Non-African American) 109.5 ml/min; Magnesium 1.8 mg/dl (1.7-2.4); Phosphorus 2.9 mg/dl (2.5-4.9); Potassium 3.4 mmol/L (3.5-5.1)
[2022-02-27] MEDS ORDERED: POTASSIUM CHLORIDE / WTR 10 MEQ/100 ML PLCT IV ONE (10:47)
--- NOTE | 2022-02-27 11:07 | Surgery Progress Note ---
Date of Service February 27, 2022 Assessment & Plan (1) SBO (small bowel obstruction): (2) Diffuse abdominal pain: (3) Vomiting: Plan 46-year-old female with a history of recurrent partial small bowel obstructions in the past presented to the emergency room with complaint of generalized abdominal pain, distention, vomiting, and diarrhea last evening after dinner. She states her symptoms were similar to her prior small bowel obstructions but not as severe. She had a CT scan of the abdomen pelvis with IV contrast showing dilated small bowel consistent with a partial small bowel obstruction with no clear transition point but likely in the right lower quadrant. 02/27/2022: afebrile, vss no abdominal pain no return of bowel function yet no n,v Plan: Continue conservative management no surgical indication at this time can start liquids once she is passing gas encouraged ambulation continue medical management Dr. Rodriguez has seen and examined patient, agrees with above. Admission and Anticipated Discharge Date Admission Date: February 26, 2022 Supervising Physician Co-Signing Physician Notes I seen and examined the patient personally and agree with the above assessment and plan. She Has not yet passed any flatus. Continue n.p.o. status. Encourage ambulation. We will continue to follow. Subjective feeling okay this morning, having headache, usually drinks 2 pots of coffee/day no abdominal pain, n,v not passing any gas yet Physical Exam Constitutional: WD/WN, vitals as above no acute distress and not ill appearing Neck: normal visual inspection and trachea midline Respiratory: normal respiratory effort; no respiratory distress Gastrointestinal (Abdomen): Inspection/Auscultation: abdomen normal to inspection; abdomen not distended Percussion/Palpation: abdomen soft; abdomen nontender, no guarding and abdomen not rigid Skin: no rashes, warm and dry Psychiatric: Orientation: alert and oriented x 3 Results & Data ([facility]) Vital Signs (Past 12 Hours) Vital Signs Temp Pulse Resp BP Pulse Ox O2 Del Method 02/27/22 07:13 36.7 C 73 16 145/85 H 93 Room Air Laboratory Results 02/27/22 02/27/22 Range/Units 07:09 07:09 WBC 7.23 (4.8-10.8) K/ul RBC 4.58 (3.93-5.22) M/uL Hgb 13.5 (12.0-16.0) g/dl Hct 40.5 (34.1-44.9) % MCV 88.4 (80.0-100.0) fL MCH 29.5 (25.0-34.0) pg MCHC 33.3 (32.0-36.0) g/dL RDW Std Deviation 42.4 (36.4-46.3) fL RDW Coeff of Lissette 13.2 (11.5-14.5) % Plt Count 252 (130-400) K/uL MPV 10.1 (9.4-12.3) fL Immature Gran % (Auto) 0.3 % Neut % (Auto) 49.6 % Lymph % (Auto) 40.8 % [place] % (Auto) 6.5 % Eos % (Auto) 2.5 % Baso % (Auto) 0.3 % Neut # (Auto) 3.59 (1.4-6.5) K/uL Lymph # (Auto) 2.95 (1.2-3.4) K/uL [place] # (Auto) 0.47 (0.24-0.82) K/uL Eos # (Auto) 0.18 (0-0.50) K/uL Baso # (Auto) 0.02 (0-0.2) K/uL Immature Gran # (Auto) 0.02 (0.00-0.02) K/uL Sodium 135 L (136-145) mmol/L Potassium 3.4 L (3.5-5.1) mmol/L Chloride 102 (98-107) mmol/L Carbon Dioxide 28 (21-32) mmol/L Anion Gap 5 (3-11) BUN 8 (6-23) mg/dl Creatinine 0.61 (0.6-1.2) mg/dl Est Cr Clr Drug Dosing 117.2 ml/min Est GFR ( Amer) 126.9 ml/min Est GFR (Non-Af Amer) 109.5 ml/min BUN/Creatinine Ratio 13.1 (10-20) Glucose 78 (70-99(Fasting)) mg/dl Calcium 8.4 L (8.5-10.1) mg/dl Phosphorus 2.9 (2.5-4.9) mg/dl Magnesium 1.8 (1.7-2.4) mg/dl (1) Vomiting Nausea presence: with nausea Vomiting type: unspecified Qualified Code(s): R11.2 - Nausea with vomiting, unspecified
--- NOTE | 2022-02-27 14:25 | XRay Report ---
KUB CLINICAL HISTORY: f/u SBO COMPARISON STUDY: CT of the abdomen and pelvis February 26, 2022. FINDINGS: Incidental note is made of an intrauterine device. A loop of mildly dilated small bowel wit hin the right lower quadrant is noted. Small bowel dilatation has slightly improved since prior CT. T here is increasing gas within the colon and rectum. No free air is identified although sensitivity is diminished on this supine exam. IMPRESSION: Mildly dilated small bowel loop within the right lower quadrant. Findings suggest a pers istent but improving small bowel obstruction. ACT 112: Negative or not required by law. Electronically signed by: Kobi Beckford M.D. 02/27/2022 2:24 PM
--- NOTE | 2022-02-27 21:43 | Hospitalist Progress Note ---
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 s/p appendectomy and cholecystectomy No fevers/chills, nonbloody emesis and stool. There was a question of internal hernia on previous admission in 2020 but had normal SBFT and SBO resolved on own Improving today, later in the day passed flatus and stool. Has no nausea or vomiting, no abdominal pains. KUB in the morning of 02/27 shows significant improvement with gas in the rectum and mild persistent dilated loop of small bowel in the right lower quadrant -Advance diet to clear [id number] to full liquids for dinner -Continue to advance diet as tolerated as long as moving bowels and passing flatus -Continue LR at 125 mL/hr for maintenance fluids -Replace potassium with 10 mill equivalents of potassium chloride IV -follow clinically and if develops nausea again or worsening abd pain, place NGT-she is agreeable to this if needed -Appreciate Surgery consultation-continue conservative management -follow CBC, BMP, Mag, Phos in AM -morphine prn mod-severe pain, IV tylenol prn mild-mod pain, ZOfran prn nausea -Continue to encourage ambulation (2) Hydroureteronephrosis: Plan: right sided, mild, similar to previous 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 has been seen by Urology-f/u as outpt no obstructing stones noted UA appears contaminated (3) History of pulmonary embolism: Plan: history many years ago of PE-unknown cause but was advised to change from Depo Provera IM to Mirena IUD which is currently in place -[facility] for DVT prevention (4) Hypokalemia: Plan: Replace with IV potassium chloride as above Follow BMP and magnesium in the morning Plan Dispo-continued stay on med/surg unit, but likely discharged home tomorrow after tolerating low fiber diet FULL CODE but would not want prolonged life support if poor prognosis or "vegetative state" and mother she designates as HCPOA Admission and Anticipated Discharge Date Admission Date: February 26, 2022 Subjective Patient feeling much improved. When I saw her she was ambulating around the hallways. Not passing flatus yet but felt like she was going to soon. Denied any abdominal pain or nausea. Later in the day, she was able to pass flatus as well as a bowel movement. She was advanced to clear liquids diet and tolerated that well. She was then advanced to full liquids diet after that. She denies any chest pain, shortness of breath, lightheadedness. Review of Systems Review of Systems: All systems reviewed & are unremarkable except as noted in HPI & below Physical Exam Constitutional: WD/WN, vitals as above Eyes: + anicteric sclerae Neck: trachea midline, no thyromegaly Respiratory: normal respiratory effort, lungs clear to auscultation Cardiovascular: RRR, no murmur, no edema Chest (Breasts): Chest: normal inspection of chest Gastrointestinal (Abdomen): normal bowel sounds, soft, nontender, no hepatosplenomegaly Musculoskeletal: Extremities: extremities normal to inspection; no cyanosis and no clubbing Skin: no rashes, warm and dry Neurologic: moves all extremities and awake; no focal motor deficits Psychiatric: A+Ox3, euthymic affect Lymphatic: no lymphedema Results & Data Results & Data ([facility]) Vital Signs (Past 12 Hours) Vital Signs Temp Pulse Resp BP Pulse Ox O2 Del Method 02/27/22 14:31 36.6 C 82 16 149/97 H 98 Room Air Laboratory Results 02/27/22 02/27/22 Range/Units 07:09 07:09 WBC 7.23 (4.8-10.8) K/ul RBC 4.58 (3.93-5.22) M/uL Hgb 13.5 (12.0-16.0) g/dl Hct 40.5 (34.1-44.9) % MCV 88.4 (80.0-100.0) fL MCH 29.5 (25.0-34.0) pg MCHC 33.3 (32.0-36.0) g/dL RDW Std Deviation 42.4 (36.4-46.3) fL RDW Coeff of Lissette 13.2 (11.5-14.5) % Plt Count 252 (130-400) K/uL MPV 10.1 (9.4-12.3) fL Immature Gran % (Auto) 0.3 % Neut % (Auto) 49.6 % Lymph % (Auto) 40.8 % [place] % (Auto) 6.5 % Eos % (Auto) 2.5 % Baso % (Auto) 0.3 % Neut # (Auto) 3.59 (1.4-6.5) K/uL Lymph # (Auto) 2.95 (1.2-3.4) K/uL [place] # (Auto) 0.47 (0.24-0.82) K/uL Eos # (Auto) 0.18 (0-0.50) K/uL Baso # (Auto) 0.02 (0-0.2) K/uL Immature Gran # (Auto) 0.02 (0.00-0.02) K/uL Sodium 135 L (136-145) mmol/L Potassium 3.4 L (3.5-5.1) mmol/L Chloride 102 (98-107) mmol/L Carbon Dioxide 28 (21-32) mmol/L Anion Gap 5 (3-11) BUN 8 (6-23) mg/dl Creatinine 0.61 (0.6-1.2) mg/dl Est Cr Clr Drug Dosing 117.2 ml/min Est GFR ( Amer) 126.9 ml/min Est GFR (Non-Af Amer) 109.5 ml/min BUN/Creatinine Ratio 13.1 (10-20) Glucose 78 (70-99(Fasting)) mg/dl Calcium 8.4 L (8.5-10.1) mg/dl Phosphorus 2.9 (2.5-4.9) mg/dl Magnesium 1.8 (1.7-2.4) mg/dl PG Care Time/CCT Total # of Minutes Spent Total Time Spent with Patient: Total time spent is greater than 50% in coordination of care (as documented) at patient's floor/unit and/or counseling patient: Coding Level of Care Code 56916 Subseq Hosp Care Lvl 2 Diagnoses SBO (small bowel obstruction) K56.609 Hydroureteronephrosis N13.30 History of pulmonary embolism Z86.711 Hypokalemia E87.6
[2022-02-27] MEDS ORDERED: ACETAMINOPHEN 325 MG TAB PO PRN (21:44)
[2022-02-28] MEDS: LACTATED RINGER'S 1,000 ML IV SCH (00:49)
[2022-02-28 07:32] VITALS: BP 126/85; PULSE 65; TEMP 98.4; O2SAT 95
[2022-02-28 08:16] LABS: Basophils # (auto) 0.02 K/uL (0-0.2); Basophils % (auto) 0.3 %; Eosinophils # (auto) 0.13 K/uL (0-0.50); Eosinophils % (auto) 2.2 %; Hematocrit (blood only) 38.1 % (34.1-44.9); Hemoglobin 12.7 g/dl (12.0-16.0); Immature Granulocytes # (auto) 0.01 K/uL (0.00-0.02); Immature Granulocytes % (auto) 0.2 %; Lymphocytes % (auto) 30.1 %; Mean Corpuscular Hemoglobin 29.7 pg (25.0-34.0); Mean Corpuscular Hgb Conc 33.3 g/dL (32.0-36.0); Monocytes # (auto) 0.51 K/uL (0.24-0.82); Monocytes % (auto) 8.5 %; Neutrophils # (auto) 3.52 K/uL (1.4-6.5); Neutrophils % (auto) 58.7 %; Platelet Count 234 K/uL (130-400); RDW Standard Deviation 42.1 fL (36.4-46.3); Red Blood Count 4.28 M/uL (3.93-5.22); White Blood Count 5.99 K/ul (4.8-10.8)
[2022-02-28 08:47] LABS: Albumin Globulin Ratio 1.5 (0.9-2); Albumin Level 3.8 gm/dl (3.4-5.0); BUN Creatinine Ratio 11.1 (10-20); Bilirubin,Total 0.8 mg/dl (0.2-1.0); Calcium 8.6 mg/dl (8.5-10.1); Creatinine Clr Calc Pharmacy 113.5 ml/min; Est GFR (African American) 125.6 ml/min; Est GFR (Non-African American) 108.3 ml/min; Globulin 2.5 gm/dl (2.5-4.0); Magnesium 1.8 mg/dl (1.7-2.4); Potassium 3.4 mmol/L (3.5-5.1); Total Protein 6.3 gm/dl (6.0-8.3)
[2022-02-28] MEDS ORDERED: POTASSIUM CHLORIDE CRTAB 20 MEQ TABCR PO STA (09:40)
--- NOTE | 2022-02-28 10:37 | Surgery Progress Note ---
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 She states her symptoms were similar to her prior small bowel obstructions but not as severe. She had a CT scan of the abdomen pelvis with IV contrast showing dilated small bowel consistent with a partial small bowel obstruction with no clear transition point but likely in the right lower quadrant. 02/28/2022: afebrile, vss no abdominal pain + bowel function no n,v Plan: Okay from surgical standpoint for discharge will advance to low fiber diet for lunch our services signing off, please call with questions/concerns Dr. Rodriguez has seen patient, agrees with above. Admission and Anticipated Discharge Date Admission Date: February 26, 2022 Supervising Physician Co-Signing Physician Notes I seen and examined the patient personally and agree with the above assessment and plan. She is passing gas and bowel movements. She can advance her diet as tolerated. She may be discharged home later today. Please call with any questions or concerns. Subjective feeling great no abdominal pain passing gas and liquid stool since yesterday afternoon diet advanced to full liquids and tolerated no n,v ready to go home Physical Exam Constitutional: WD/WN, vitals as above no acute distress and not ill appearing Respiratory: normal respiratory effort; no respiratory distress Gastrointestinal (Abdomen): Inspection/Auscultation: abdomen normal to insp ection; abdomen not distended Percussion/Palpation: abdomen soft; abdomen nontender, no guarding and abdomen not rigid Skin: no rashes, warm and dry Psychiatric: A+Ox3, euthymic affect Results & Data ([facility]) Vital Signs (Past 12 Hours) Vital Signs Temp Pulse Resp BP BP Pulse Ox O2 Del Method 02/28/22 07:31 36.9 C 65 16 126/85 95 Room Air 02/27/22 22:40 36.8 C 66 16 127/82 96 Room Air Laboratory Results 02/28/22 02/28/22 Range/Units 07:40 07:40 WBC 5.99 (4.8-10.8) K/ul RBC 4.28 (3.93-5.22) M/uL Hgb 12.7 (12.0-16.0) g/dl Hct 38.1 (34.1-44.9) % MCV 89.0 (80.0-100.0) fL MCH 29.7 (25.0-34.0) pg MCHC 33.3 (32.0-36.0) g/dL RDW Std Deviation 42.1 (36.4-46.3) fL RDW Coeff of Lissette 13.0 (11.5-14.5) % Plt Count 234 (130-400) K/uL MPV 10.0 (9.4-12.3) fL Immature Gran % (Auto) 0.2 % Neut % (Auto) 58.7 % Lymph % (Auto) 30.1 % [place] % (Auto) 8.5 % Eos % (Auto) 2.2 % Baso % (Auto) 0.3 % Neut # (Auto) 3.52 (1.4-6.5) K/uL Lymph # (Auto) 1.80 (1.2-3.4) K/uL [place] # (Auto) 0.51 (0.24-0.82) K/uL Eos # (Auto) 0.13 (0-0.50) K/uL Baso # (Auto) 0.02 (0-0.2) K/uL Immature Gran # (Auto) 0.01 (0.00-0.02) K/uL Sodium 138 (136-145) mmol/L Potassium 3.4 L (3.5-5.1) mmol/L Chloride 102 (98-107) mmol/L Carbon Dioxide 28 (21-32) mmol/L Anion Gap 8 (3-11) BUN 7 (6-23) mg/dl Creatinine 0.63 (0.6-1.2) mg/dl Est Cr Clr Drug Dosing 113.5 ml/min Est GFR ( Amer) 125.6 ml/min Est GFR (Non-Af Amer) 108.3 ml/min BUN/Creatinine Ratio 11.1 (10-20) Glucose 77 (70-99(Fasting)) mg/dl Calcium 8.6 (8.5-10.1) mg/dl Phosphorus 3.0 (2.5-4.9) mg/dl Magnesium 1.8 (1.7-2.4) mg/dl Total Bilirubin 0.8 (0.2-1.0) mg/dl AST 14 (13-39) U/L ALT 10 (7-52) U/L Alkaline Phosphatase 32 L (34-104) U/L Total Protein 6.3 (6.0-8.3) gm/dl Albumin 3.8 (3.4-5.0) gm/dl Globulin 2.5 (2.5-4.0) gm/dl Albumin/Globulin Ratio 1.5 (0.9-2) (1) Vomiting Nausea presence: with nausea Vomiting type: unspecified Qualified Code(s): R11.2 - Nausea with vomiting, unspecified
--- NOTE | 2022-02-28 11:17 | Discharge Summary ---
Date of Service February 28, 2022 Admission HPI Per Admitting Provider This pt is a 46 yo female with a h/o recurrent small bowel obstructions, hydroureteronephrosis, history of cholecystectomy and appendectomy, and PE who presents to the ER with 3-4 days of nausea followed by onset acutely last evening of upper abd pain and then vomiting. Pain severe at times at a 10/10. Had a few episodes of diarrhea, nonbloody. Found on CT abd/pel to have a SBO with no clear delineation of transition point but likely somewhere in RLQ. In ER, she was given Toradol, 1L NS, Zofran. When I saw her, she was already feeling better, mild pain, no further nausea or vomiting. Hospitalist service asked to admit. Principal Diagnosis SBO Discharge Exam Constitutional WD/WN, vitals as above Eyes + anicteric sclerae Neck trachea midline, no thyromegaly Respiratory normal respiratory effort, lungs clear to auscultation Cardiovascular RRR, no murmur, no edema Chest (Breasts) Chest: normal inspection of chest Gastrointestinal (Abdomen) normal bowel sounds, soft, nontender, no hepatosplenomegaly Musculoskeletal Extremities: extremities normal to inspection; no cyanosis and no clubbing Skin no rashes, warm and dry Neurologic moves all extremities and awake; no focal motor deficits Psychiatric A+Ox3, euthymic affect Lymphatic no lymphedema Discharge Data Allergies Allergy/AdvReac Type Severity Reaction Status Date / Time Penicillins Allergy Severe AMOXICILLIN-ITCHY Verified 02/26/22 07:13 HIVES Consultations 02/26/22 08:23 ED Decision to Admit Stat 02/26/22 13:59 Consult General Surgery Routine Ordered Studies 02/26/22 05:02 CT abd pelvis IV con only Stat Hospital Course (1) SBO (small bowel obstruction): With h/o 4-5 recurrent SBOs in the past, 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 s/p appendectomy and cholecystectomy No fevers/chills, nonbloody emesis and stool. There was a question of internal hernia on previous admission in 2020 but had normal SBFT and SBO resolved on own Improved with conservative measures to include NPO status, IVFs,ambulation. Was passing flatus and stool multiple times prior to discharge and tolerating a low fiber diet. Has no nausea or vomiting, no abdominal pains. 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 has been seen by Urology-f/u as outpt no obstructing stones noted UA appears contaminated (3) History of pulmonary embolism: history many years ago of PE-unknown cause but was advised to change from Depo Provera IM to Mirena IUD which is currently in place [facility] for DVT prevention (4) Hypokalemia: replaced and resolved Plan Dispo-dc to home FULL CODE but would not want prolonged life support if poor prognosis or "vegetative state" and mother she designates as HCPOA Total Time Total Time Spent Total Time Spent (In Minutes): 35 min Discharge Plan Discharge Items Patient Disposition: Home - Self-Care Reason For Visit: VOMITING,ABDOMINAL PAIN Discharge Diagnosis: Small bowel obstruction Condition on Discharge: Fair Activity: Resume your previous activity Non-emergency contact: Primary Care Provider Call non-emergency contact if: you have any medication questions, your symptoms worsen, your pain is not controlled, your pain is worsening and you have a fever Follow-up/Referrals: Elroy Borja [Primary Care Provider] - (Follow up within 1-2 weeks) Diet: Low Fiber Diet Comment: low fiber diet x 1 week and then gradual return to regular diet Addtl Attending Provider Instructions: You were admitted for a recurrent bowel obstruction which fortunately resolved on its own. Please follow up with your PCP within 1-2 weeks and remain on a low fiber diet x 1 week as above. Pending Studies at Discharge: No Stand-Alone Forms: [facility], Work/School Release, Smoking Cessation Medications and DC Order Prescriptions: No Action No Known Home Medications Discharge Orders: Discharge Order (Routine); Ordered 02/28/22 Ordered By: Olamide Germain Admission Data Admit Date/Time: 02/26/22 09:54 Attending Provider: Olamide Germain Admit Provider: Olamide Germain Primary Care Provider: Elroy Borja Other Providers: Olamide Germain ; Ryland Rodriguez Coding Level of Care Code D/C DAY MANAGEMENT >30 MINS Diagnoses SBO (small bowel obstruction) K56.609 Hydroureteronephrosis N13.30 History of pulmonary embolism Z86.711 Hypokalemia E87.6
== END 2022-02-28 14:18 | disposition home or self-care (01) | DRG 389 ==
LOC: ED 04:45 → EDINP 09:54 → 3W 13:59
DX: Z90.49 Acquired absence of other specified parts of digestive tract; Z97.5 Presence of (intrauterine) contraceptive device; Z87.19 Personal history of other diseases of the digestive system; N13.30 Unspecified hydronephrosis; Z86.711 Personal history of pulmonary embolism; Z88.0 Allergy status to penicillin; K56.51 Intestinal adhesions [bands], with partial obstruction; Z87.448 Personal history of other diseases of urinary system; E87.6 Hypokalemia

== ENCOUNTER 2023-02-15 03:20 | Observation (INO) ==
[2023-02-15] MEDS ORDERED: SODIUM CHLORIDE 0.9% 1000ML 1,000 ML IV STA (03:32)
[2023-02-15] MEDS ORDERED: ONDANSETRON INJ 2 MG/ML 2 ML VIAL IV STA ×2 (03:35→03:53)
[2023-02-15] MEDS ORDERED: MoRPHine SULFATE 4 MG/ML 1 ML CARP\\VIAL IV STA (03:35)
--- NOTE | 2023-02-15 03:39 | Emergency Department Note ---
History of Present Illness General Chief complaint: Abdominal Pain Stated complaint: MECHANICAL BOWEL BLOCKAGE FROM SURGERY Time Seen by Provider: 02/15/23 03:32 History of Present Illness This 47-year-old with a history of recurrent small bowel obstructions presents to the ER complaining of nausea vomiting abdominal pain with concerns for recurrent bowel obstruction. Patient denies chest pain, dyspnea, fevers, diarrhea, urinary symptoms. Home Medications Medication Instructions Recorded Confirmed Type No Known Home Medications 01/26/19 02/26/22 History Allergies Allergy/AdvReac Type Severity Reaction Status Date / Time Penicillins Allergy Severe AMOXICILLIN-ITCHY Verified 02/26/22 07:13 HIVES amoxicillin AdvReac Unknown Hives Verified 03/27/22 11:53 cisapride [From Propulsid] AdvReac Unknown N/V Verified 03/27/22 11:53 hydrochlorothiazide AdvReac Unknown vertigo Unverified 03/27/22 11:53 [From Maxzide] metoclopramide [From Reglan] AdvReac Unknown N/V Verified 03/27/22 11:53 omeprazole [From Prilosec] AdvReac Unknown N/V Unverified 03/27/22 11:53 triamterene [From Maxzide] AdvReac Unknown vertigo Unverified 03/27/22 11:53 lisinopril AdvReac Unknown dry cough Uncoded 03/27/22 11:53 Past Med/Surg History Medical History Hernia, internal Hypokalemia Kidney cysts Kidney stones Leukocytosis Pulmonary embolism SBO (small bowel obstruction) Small bowel obstruction Surgical History History of cholecystectomy Hx of appendectomy Status post exploratory laparotomy History of common bile duct injury during lap kinga required unknown repair with ex lap Family History Other Family history non-contributory Social History Smoking Status: Never smoker Hx Alcohol Use: Yes Hx Substance Use: No Preferred Language: Gibraltarian Communication Ability: Effective Change Consultant Required: No Beliefs That Will Affect Care: None Current Living Situation: Spouse Current Living Situation Comment: Home with Feels Safe at Home: Yes Assistive Devices: None Review of Systems A total of 10 systems reviewed and were otherwise negative Physical Exam Vital Signs Vital Signs - 24 hr 02/15/23 03:25 02/15/23 03:55 02/15/23 03:32 Temperature 36.6 C Temperature Source Temporal Artery Scan Pulse Rate 74 Pulse Rate [Apical] Respiratory Rate 18 Respiratory Effort / Characteristics Non-Labored Respiratory Depth Normal Blood Pressure 179/88 H Blood Pressure [Left Arm] Blood Pressure Mean 118 Blood Pressure Mean [Left Arm] Pulse Oximetry 100 99 Oxygen Delivery Method Room Air Room Air Room Air Sepsis Recent Fever Within 48 Hours No Sepsis New/Unexplained Change in Mental Status No Sepsis Action Taken by Nursing No Action Required 02/15/23 04:14 Temperature Temperature Source Pulse Rate Pulse Rate [Apical] 78 Respiratory Rate 17 Respiratory Effort / Characteristics Respiratory Depth Blood Pressure Blood Pressure [Left Arm] 157/90 H Blood Pressure Mean Blood Pressure Mean [Left Arm] 112 Pulse Oximetry 98 Oxygen Delivery Method Sepsis Recent Fever Within 48 Hours Sepsis New/Unexplained Change in Mental Status Sepsis Action Taken by Nursing VITALS: Vitals are noted on the nurse's note and reviewed by myself. Vital signs stable. GENERAL: pleasant patient, in no acute distress, nondiaphoretic, well-developed well-nourished. SKIN: The skin was without rashes, erythema, edema, or bruising. There is no tenting of the skin. Capillary reflex less than 2 seconds. HEAD: Normocephalic atraumatic. EARS: External auditory canals clear, EYES: Pupils equal round and reactive to light and accommodation. Conjunctivae without injection, sclerae without icterus. Extraocular movements intact. NOSE: Patent, turbinates without inflammation or discharge. MOUTH: Mucous membranes moist. Pharynx without erythema or exudate. Uvula midline. Airway patent. Tongue does not deviate. NECK: Supple without nuchal rigidity. No lymphadenopathy. No thyromegaly. Ce rvical spine is nontender. No JVD. HEART: Regular rate and rhythm LUNGS: Clear to auscultation bilaterally without wheezes, rales or rhonchi. No retractions or accessory muscle use. ABDOMEN: Positive bowel sounds x 4. Normal tympanic percussion. Soft, tender to palpation mid abdomen, without masses or organomegaly. Reed sign negative. No guarding or rebound tenderness. No CVA tenderness MUSCULOSKELETAL: No muscle atrophy, erythema, or edema noted. NEURO: Patient was alert and oriented to person place and time. Normal sensation to light and sharp touch. No focal neurological deficits. Course Administered Medications Discontinued Medications Sodium Chloride (Nss 1000ml) 1,000 mls @ 999 mls/hr IV .Q1H1M STA Stop: 02/15/23 04:32 Last Infusion: 02/15/23 04:59 Dose: 0 mls/hr Documented By: Admin: 02/15/23 03:56 Dose: 999 mls/hr Documented By: YFN Ioversol (Optiray 320 100ml) 93 ml IV ONCE ONE Stop: 02/15/23 04:07 Last Admin: 02/15/23 04:07 Dose: 93 ml Documented By: GWENDOLYN Morphine Sulfate (Morphine Sulfate 4 Mg/Ml 1 Ml Carp\Vial) 4 mg IV NOW STA Stop: 02/15/23 03:36 Last Admin: 02/15/23 03:56 Dose: 4 mg Documented By: YFN Ondansetron HCl (Ondansetron Inj 2 Mg/Ml 2 Ml Vial) 4 mg IV NOW STA Stop: 02/15/23 03:36 Last Admin: 02/15/23 03:48 Dose: 4 mg Documented By: YFN Ondansetron HCl (Ondansetron Inj 2 Mg/Ml 2 Ml Vial) 4 mg IV NOW STA Stop: 02/15/23 03:54 Last Admin: 02/15/23 03:56 Dose: 4 mg Documented By: YFN Medical Decision Making Medical Records Attestation: I reviewed the patient's medical records. Home Medications Current Medication List: was personally reviewed by me Laboratory Data Attestation: I reviewed the patient's lab results. 02/15/23 03:40 02/15/23 03:40 Lab Results 02/15/23 02/15/23 02/15/23 Range/Units 03:40 03:40 03:40 WBC 9.52 (4.8-10.8) K/ul RBC 4.90 (4.20-5.40) M/uL Hgb 14.6 (12.0-16.0) g/dl POC Hgb (12.0-16.0) g/dl Hct 43.8 (37.0-47.0) % POC Hct (37-47) % MCV 89.4 (80.0-100.0) fL MCH 29.8 (25.0-34.0) pg MCHC 33.3 (32.0-36.0) g/dL RDW Std Deviation 43.8 (36.4-46.3) fL RDW Coeff of Lissette 13.4 (11.5-14.5) % Plt Count 267 (130-400) K/uL MPV 10.2 (9.4-12.4) fL Immature Gran % (Auto) 0.3 % Neut % (Auto) 69.3 % Lymph % (Auto) 20.5 % [place] % (Auto) 7.4 % Eos % (Auto) 2.0 % Baso % (Auto) 0.5 % Neut # (Auto) 6.60 H (1.40-6.50) K/uL Lymph # (Auto) 1.95 (1.2-3.4) K/uL [place] # (Auto) 0.70 H (0.11-0.59) K/uL Eos # (Auto) 0.19 (0-0.50) K/uL Baso # (Auto) 0.05 (0-0.2) K/uL Immature Gran # (Auto) 0.03 (0.01-0.20) K/uL POC Sodium (135-144) mmol/L Sodium 137 (136-145) mmol/L POC Potassium (3.3-5.0) mmol/L Potassium 4.0 (3.5-5.1) mmol/L POC Chloride (101-112) mmol/L Chloride 103 (98-107) mmol/L Carbon Dioxide 29 (21-32) mmol/L POC Total CO2 (24-31) mmol/L Anion Gap 5 (3-11) POC Anion Gap (16-25) mmol/L POC BUN (7-18) mg/dl BUN 16 (6-23) mg/dl Creatinine 0.83 (0.6-1.2) mg/dl POC Creatinine (0.6-1.3) mg/dl Est Cr Clr Drug Dosing 84.9 ml/min Est GFR ( Amer) 98.0 ml/min Est GFR (Non-Af Amer) 84.6 ml/min BUN/Creatinine Ratio 19.3 (10-20) Glucose 109 H (70-99(Fasting)) mg/dl POC Glucose (other) (70-99) mg/dl Calcium 9.2 (8.6-10.3) mg/dl POC Ioniz Calcium Daysi (1.12-1.32) mmol/l Total Bilirubin 0.6 (0.2-1.0) mg/dl AST 16 (13-39) U/L ALT 13 (7-52) U/L Alkaline Phosphatase 39 (34-104) U/L Total Protein 7.4 (6.0-8.3) gm/dl Albumin 4.3 (3.4-5.0) gm/dl Globulin 3.1 (2.5-4.0) gm/dl Albumin/Globulin Ratio 1.4 (0.9-2) Lipase 22 (11-82) U/L HCG, Qual Negative (Negative) Urine Color Urine Appearance (Clear) Urine pH (4.5-7.5) Ur Specific [place] (1.000-1.030) Urine Protein (Negative) Urine Glucose (UA) (Negative) Urine Ketones (Negative) Urine Blood (Negative) Urine Nitrite (Negative) Urine Bilirubin (Negative) Urine Urobilinogen (Negative) Ur Leukocyte Esterase (Negative) Urine WBC (Auto) (0-5) /hpf Urine RBC (Auto) (0-4) /hpf U Hyaline Cast (Auto) (0-5) /lpf U Epithel Cells (Auto) (0-5) /lpf Urine Bacteria (Auto) (Negative) 02/15/23 02/15/23 Range/Units 03:40 03:47 WBC (4.8-10.8) K/ul RBC (4.20-5.40) M/uL Hgb (12.0-16.0) g/dl POC Hgb 15.0 (12.0-16.0) g/dl Hct (37.0-47.0) % POC Hct 44 (37-47) % MCV (80.0-100.0) fL MCH (25.0-34.0) pg MCHC (32.0-36.0) g/dL RDW Std Deviation (36.4-46.3) fL RDW Coeff of Lissette (11.5-14.5) % Plt Count (130-400) K/uL MPV (9.4-12.4) fL Immature Gran % (Auto) % Neut % (Auto) % Lymph % (Auto) % [place] % (Auto) % Eos % (Auto) % Baso % (Auto) % Neut # (Auto) (1.40-6.50) K/uL Lymph # (Auto) (1.2-3.4) K/uL [place] # (Auto) (0.11-0.59) K/uL Eos # (Auto) (0-0.50) K/uL Baso # (Auto) (0-0.2) K/uL Immature Gran # (Auto) (0.01-0.20) K/uL POC Sodium 139 (135-144) mmol/L Sodium (136-145) mmol/L POC Potassium 4.0 (3.3-5.0) mmol/L Potassium (3.5-5.1) mmol/L POC Chloride 101 (101-112) mmol/L Chloride (98-107) mmol/L Carbon Dioxide (21-32) mmol/L POC Total CO2 29 (24-31) mmol/L Anion Gap (3-11) POC Anion Gap 13.0 L (16-25) mmol/L POC BUN 15 (7-18) mg/dl BUN (6-23) mg/dl Creatinine (0.6-1.2) mg/dl POC Creatinine 0.9 (0.6-1.3) mg/dl Est Cr Clr Drug Dosing ml/min Est GFR ( Amer) ml/min Est GFR (Non-Af Amer) ml/min BUN/Creatinine Ratio (10-20) Glucose (70-99(Fasting)) mg/dl POC Glucose (other) 109 H (70-99) mg/dl Calcium (8.6-10.3) mg/dl POC Ioniz Calcium Daysi 1.15 (1.12-1.32) mmol/l Total Bilirubin (0.2-1.0) mg/dl AST (13-39) U/L ALT (7-52) U/L Alkaline Phosphatase (34-104) U/L Total Protein (6.0-8.3) gm/dl Albumin (3.4-5.0) gm/dl Globulin (2.5-4.0) gm/dl Albumin/Globulin Ratio (0.9-2) Lipase (11-82) U/L HCG, Qual (Negative) Urine Color Yellow Urine Appearance Cloudy A (Clear) Urine pH 6.5 (4.5-7.5) Ur Specific [place] 1.023 (1.000-1.030) Urine Protein Negative (Negative) Urine Glucose (UA) Negative (Negative) Urine Ketones Trace H (Negative) Urine Blood 2+ H (Negative) Urine Nitrite Negative (Negative) Urine Bilirubin Negative (Negative) Urine Urobilinogen Negative (Negative) Ur Leukocyte Esterase 1+ H (Negative) Urine WBC (Auto) 10-30 H (0-5) /hpf Urine RBC (Auto) 0-4 (0-4) /hpf U Hyaline Cast (Auto) 5-10 H (0-5) /lpf U Epithel Cells (Auto) >30 H (0-5) /lpf Urine Bacteria (Auto) 2+ H (Negative) Imaging Data Attestation: I personally reviewed and interpreted this imaging study as follows: Radiologist's Impression: Abdomen/Pelvis CT 02/15/23 03:32 Exam(s): CT ABDOMEN + PELVIS With Contrast IV Amt: 93ml optiray 320 EXAM: CT Abdomen and Pelvis With Intravenous Contrast CLINICAL HISTORY: Reason for exam: mid abd pain, hx SBO. TECHNIQUE: Axial computed tomography images of the abdomen and pelvis with intravenous contrast. CTDI is 27.56 mGy and DLP is 1338.33 mGy-cm. Automated exposure control was utilized for the study. A dose lowering technique was utilized adhering to the principles of ALARA. CONTRAST: Patient received 93ml optiray 320 of IV contrast COMPARISON: No relevant prior studies available. FINDINGS: Lung bases: Unremarkable. No mass. No consolidation. ABDOMEN: Liver: Unremarkable. No mass. Gallbladder and bile ducts: Unremarkable. No calcified stones. No ductal dilation. Pancreas: Unremarkable. No mass. No ductal dilation. Spleen: Unremarkable. No splenomegaly. Adrenals: Unremarkable. No mass. Kidneys and ureters: Unremarkable. No solid mass. No hydronephrosis. Stomach and bowel: There is dilated small bowel seen in the right abdomen measuring up to 3.6 cm in diameter with transition point located in the right abdomen, consistent with small bowel obstruction. The para of the jejunal loops in the left upper abdomen are not dilated. No mucosal thickening. PELVIS: Appendix: No findings to suggest acute appendicitis. Bladder: Unremarkable. No mass. Reproductive: 3.8 cm left ovarian cyst is seen. ABDOMEN and PELVIS: Intraperitoneal space: Unremarkable. No free air. No significant fluid collection. Bones/joints: No acute fracture. No dislocation. Soft tissues: Unremarkable. Vasculature: Unremarkable. No abdominal aortic aneurysm. Lymph nodes: Unremarkable. No enlarged lymph nodes. Tubes, lines and devices: There is intrauterine device seen in situ. IMPRESSION: Partial distal small bowel obstruction with decompressed proximal and distal small bowel loops. The possibility of closed loop obstruction cannot be excluded. Electronically signed by: Neil Eckert MD 02/15/23 05:22 AM MDM Narrative Prior records/ancillary studies reviewed. Triage Nursing notes reviewed. Additional history obtained from nursing. The patient's history was concerning for abdominal pain. Differential diagnosis: Etiologies such as appendicitis, diverticulitis, PUD, biliary pathology, UTI, pancreatitis, obstruction, mesenteric ischemia, aortic pathology, infections, inflammatory bowel disease, renal colic, as well as others were entertained. Physical examination findings: As above. ER treatment provided: An order was placed for continuous cardiac monitoring. The monitor shows a rate of 60-100 with a sinus rhythm per my Independent interpretation. IV fluids Zofran and morphine were ordered On reassessment the patient felt better. Diagnostics interpreted by me: The labs Independently Interpreted by myself revealed no worrisome le ukocytosis, stable H&H Imaging studies: CT the abdomen pelvis is concerning for small bowel obstruction per my independent interpretation. Report was reviewed as above. Consultation: A consultation was placed with the hospitalist. The case was discussed and diagnostics were reviewed. The patient was evaluated in the ER for further treatment. Exam and history seem consistent with recurrent small bowel obstruction. labs and diagnostics were independently interpreted by myself. Patient was medicated as above. She was reassessed multiple times. Medicine was consulted and the case was discussed. Patient will be admitted to the medical service for further evaluation and treatment. By the evaluation outlined above emergent etiologies such as appendicitis, diverticulitis, PUD, biliary pathology, UTI, pancreatitis, mesenteric ischemia, aortic pathology, infections, inflammatory bowel disease, renal colic, as well as others were deemed relatively unlikely. The pt informed about the findings as listed above. All questions were answered and pleased with the treatment. The chart was completed utilizing [employer] voice recognition software. Grammatical errors, random word insertions, pronoun errors, and incomplete sentences are an occassional consequence of this system due to software limitations, ambient noise, and hardware issues. Any formal questions or conc erns about the content, text, or information contained within the body of this dictation should be directly addressed to the physician assistant purchasing manager for clarification. Impression & Plan Small bowel obstruction Discharge Plan Visit Data Chief Complaint: Abdominal Pain Stated Complaint: MECHANICAL BOWEL BLOCKAGE FROM SURGERY ED Provider: Ifrah Stoner ED Midlevel Provider: Kendra Miranda Discharge Problem: Small bowel obstruction Patient Disposition: Admitted As Inpatient Condition: Good Forms Stand Alone Forms: My [facility] [employer] Prescriptions Prescriptions: No Action No Known Home Medications Referrals Referrals: Elroy Borja [Primary Care Provider] -
[2023-02-15 04:04] LABS: iSTAT Creatinine 0.9 mg/dl (0.6-1.3); iSTAT Ionized Calcium 1.15 mmol/l (1.12-1.32)
[2023-02-15 04:06] LABS: Basophils # (auto) 0.05 K/uL (0-0.2); Basophils % (auto) 0.5 %; Eosinophils # (auto) 0.19 K/uL (0-0.50); Hematocrit (blood only) 43.8 % (37.0-47.0); Hemoglobin 14.6 g/dl (12.0-16.0); Immature Granulocytes # (auto) 0.03 K/uL (0.01-0.20); Immature Granulocytes % (auto) 0.3 %; Lymphocytes # (auto) 1.95 K/uL (1.2-3.4); Lymphocytes % (auto) 20.5 %; Mean Corpuscular Hemoglobin 29.8 pg (25.0-34.0); Mean Corpuscular Hgb Conc 33.3 g/dL (32.0-36.0); Mean Corpuscular Volume 89.4 fL (80.0-100.0); Mean Platelet Volume 10.2 fL (9.4-12.4); Monocytes % (auto) 7.4 %; Neutrophils % (auto) 69.3 %; Platelet Count 267 K/uL (130-400); RDW Coefficient of Variation 13.4 % (11.5-14.5); RDW Standard Deviation 43.8 fL (36.4-46.3); White Blood Count 9.52 K/ul (4.8-10.8)
[2023-02-15] MEDS ORDERED: OPTIRAY 320 100ml IV ONE (04:06)
[2023-02-15 04:09] LABS: Appearance Urine Cloudy (Clear); Bacteria Urine Automated 2+ (Negative); Bilirubin Urine Negative (Negative); Blood Urine 2+ (Negative); Color Urine Yellow; Epithelial Cell Urine Auto >30 /lpf (0-5); Glucose Urine UA Negative (Negative); Ketones Urine Trace (Negative); Leukocyte Esterase Urine 1+ (Negative); Nitrite Urine Negative (Negative); Protein Urine Negative (Negative); Specific Gravity Urine 1.023 (1.000-1.030); Urobilinogen Urine Negative (Negative); pH Urine 6.5 (4.5-7.5)
[2023-02-15 04:24] LABS: Albumin Globulin Ratio 1.4 (0.9-2); Albumin Level 4.3 gm/dl (3.4-5.0); BUN Creatinine Ratio 19.3 (10-20); Bilirubin,Total 0.6 mg/dl (0.2-1.0); Calcium 9.2 mg/dl (8.6-10.3); Creatinine Clr Calc Pharmacy 84.9 ml/min; Est GFR (Non-African American) 84.6 ml/min; Globulin 3.1 gm/dl (2.5-4.0); Pregnancy Test, Serum Negative (Negative); Total Protein 7.4 gm/dl (6.0-8.3)
[2023-02-15 04:43] LABS: RBC Urine Automated 0-4 /hpf (0-4)
--- NOTE | 2023-02-15 05:08 | History & Physical Report ---
Date of Service February 15, 2023 Assessment & Plan (1) Small bowel obstruction: Plan: 47yo female with history of prior SBO presenting with abdominal pain, nausea and vomiting. Symptoms similar to prior episodes of SBO. CT obtained, formal STAT- rad read pending -Admit to medical -Keep NPO -Check Mg and PO4 and replete as needed -LR at 125mL/hr x 2L -Zofran PRN nausea -Morphine PRN pain -NGT if nausea persists or abdominal pain or distention worsens - will hold off for now -General Surgery consultation appreciated F/E/N -LR at 125mL/hr x 2L, monitor electrolytes and replete as needed. NPO for now Ppx - low risk for DVT Code - Full Dispo - Admit to medical History of Present Illness Chief Complaint: abdominal pain Primary Care Provider: Elroy Borja Shira Schuster is a 47yo female with history of cholecystectomy, appendectomy and exploratory laparotomy presenting with abdominal pain, concerned for SBO. Patient reports that every year for the past 4-5 years she develops a bowel obstruction in late summer. Today she developed midline abdominal pain around 01:00 with associated nausea and multiple episodes of non-bloody emesis. She had two episodes of non-bloody diarrhea. Has not been passing gas since. No abdominal distention. No additional complaints, specifically no fever, chills, chest pain, cough, SOB. In the ER she is afebrile, HD stable, NAD Allergies Allergy/AdvReac Type Severity Reaction Status Date / Time Penicillins Allergy Severe AMOXICILLIN-ITCHY Verified 02/26/22 07:13 HIVES amoxicillin AdvReac Unknown Hives Verified 03/27/22 11:53 cisapride [From Propulsid] AdvReac Unknown N/V Verified 03/27/22 11:53 hydrochlorothiazide AdvReac Unknown vertigo Unverified 03/27/22 11:53 [From Maxzide] metoclopramide [From Reglan] AdvReac Unknown N/V Verified 03/27/22 11:53 omeprazole [From Prilosec] AdvReac Unknown N/V Unverified 03/27/22 11:53 triamterene [From Maxzide] AdvReac Unknown vertigo Unverified 03/27/22 11:53 lisinopril AdvReac Unknown dry cough Uncoded 03/27/22 11:53 Home Medications Medication Instructions Recorded Confirmed Type No Known Home Medications 01/26/19 02/26/22 History Past Med/Surg History Medical History Hernia, internal Hypokalemia Kidney cysts Kidney stones Leukocytosis Pulmonary embolism SBO (small bowel obstruction) Small bowel obstruction Surgical History History of cholecystectomy Hx of appendectomy Status post exploratory laparotomy History of common bile duct injury during lap kinga required unknown repair with ex lap Family History Other Family history non-contributory Social History Smoking Status: Never smoker Hx Alcohol Use: Yes Hx Substance Use: No Preferred Language: Japanese Communication Ability: Effective Alternative Energy Technician Required: No Beliefs That Will Affect Care: None Current Living Situation: Spouse Current Living Situation Comment: Home with Feels Safe at Home: Yes Assistive Devices: None Review of Systems Review of Systems: All systems reviewed & are unremarkable except as noted in HPI & below Physical Exam Physical Exam: General: patient resting comfortably, NAD, non-toxic in appearance, AA&O x 4 Skin: warm, dry, intact, no rashes or lesions HEENT: NC/AT, PERRL, EOMI, anicteric sclera, conjunctiva without injection, external ear normal to inspection and nontender, nares patent, moist mucus membranes, dentition intact, no oropharyngeal lesions, neck supple, trachea midline, no LAD, no thyromegaly, no JVD Heart: +S1/S2, regular, no m/r/g Lungs: equal air entry bilaterally, no rales/rhonchi/wheezes Abd: +BS diminished, soft, ND, diffusely tender without rebound or guarding, no masses/organomegaly/ascites Ext: warm, 2+ pulses in UE/LE bilaterally, no clubbing/cyanosis or edema Neuro: nonfocal, patient AA&O x 4, speech intact, no facial droop, moving all extremities on command with equal strength 5/5 Results & Data Results & Data Vital Signs (Past 12 Hours) Vital Signs Temp Pulse Pulse Resp BP BP Pulse Ox 02/15/23 04:14 78 17 157/90 H 98 02/15/23 03:32 02/15/23 03:55 99 02/15/23 03:25 36.6 C 74 18 179/88 H 100 O2 Del Method 02/15/23 04:14 02/15/23 03:32 Room Air 02/15/23 03:55 Room Air 02/15/23 03:25 Room Air Laboratory Results Laboratory Results WBC 9.52 K/ul (4.8-10.8) 02/15/23 03:40 RBC 4.90 M/uL (4.20-5.40) 02/15/23 03:40 Hgb 14.6 g/dl (12.0-16.0) 02/15/23 03:40 POC Hgb 15.0 g/dl (12.0-16.0) 02/15/23 03:47 Hct 43.8 % (37.0-47.0) 02/15/23 03:40 POC Hct 44 % (37-47) 02/15/23 03:47 MCV 89.4 fL (80.0-100.0) 02/15/23 03:40 MCH 29.8 pg (25.0-34.0) 02/15/23 03:40 MCHC 33.3 g/dL (32.0-36.0) 02/15/23 03:40 RDW Std Deviation 43.8 fL (36.4-46.3) 02/15/23 03:40 RDW Coeff of Lissette 13.4 % (11.5-14.5) 02/15/23 03:40 Plt Count 267 K/uL (130-400) 02/15/23 03:40 MPV 10.2 fL (9.4-12.4) 02/15/23 03:40 Immature Gran % (Auto) 0.3 % 02/15/23 03:40 Neut % (Auto) 69.3 % 02/15/23 03:40 Lymph % (Auto) 20.5 % 02/15/23 03:40 Elbert % (Auto) 7.4 % 02/15/23 03:40 Eos % (Auto) 2.0 % 02/15/23 03:40 Baso % (Auto) 0.5 % 02/15/23 03:40 Neut # (Auto) 6.60 K/uL (1.40-6.50) H 02/15/23 03:40 Lymph # (Auto) 1.95 K/uL (1.2-3.4) 02/15/23 03:40 Elbert # (Auto) 0.70 K/uL (0.11-0.59) H 02/15/23 03:40 Eos # (Auto) 0.19 K/uL (0-0.50) 02/15/23 03:40 Baso # (Auto) 0.05 K/uL (0-0.2) 02/15/23 03:40 Immature Gran # (Auto) 0.03 K/uL (0.01-0.20) 02/15/23 03:40 POC Sodium 139 mmol/L (135-144) 02/15/23 03:47 Sodium 137 mmol/L (136-145) 02/15/23 03:40 POC Potassium 4.0 mmol/L (3.3-5.0) 02/15/23 03:47 Potassium 4.0 mmol/L (3.5-5.1) 02/15/23 03:40 POC Chloride 101 mmol/L (101-112) 02/15/23 03:47 Chloride 103 mmol/L (98-107) 02/15/23 03:40 Carbon Dioxide 29 mmol/L (21-32) 02/15/23 03:40 POC Total CO2 29 mmol/L (24-31) 02/15/23 03:47 Anion Gap 5 (3-11) 02/15/23 03:40 POC Anion Gap 13.0 mmol/L (16-25) L 02/15/23 03:47 POC BUN 15 mg/dl (7-18) 02/15/23 03:47 BUN 16 mg/dl (6-23) 02/15/23 03:40 Creatinine 0.83 mg/dl (0.6-1.2) 02/15/23 03:40 POC Creatinine 0.9 mg/dl (0.6-1.3) 02/15/23 03:47 Est Cr Clr Drug Dosing 84.9 ml/min 02/15/23 03:40 Est GFR ( Amer) 98.0 ml/min 02/15/23 03:40 Est GFR (Non-Af Amer) 84.6 ml/min 02/15/23 03:40 BUN/Creatinine Ratio 19.3 (10-20) 02/15/23 03:40 Glucose 109 mg/dl (70-99(Fasting)) H 02/15/23 03:40 POC Glucose (other) 109 mg/dl (70-99) H 02/15/23 03:47 Calcium 9.2 mg/dl (8.6-10.3) 02/15/23 03:40 POC Ioniz Calcium Daysi 1.15 mmol/l (1.12-1.32) 02/15/23 03:47 Total Bilirubin 0.6 mg/dl (0.2-1.0) 02/15/23 03:40 AST 16 U/L (13-39) 02/15/23 03:40 ALT 13 U/L (7-52) 02/15/23 03:40 Alkaline Phosphatase 39 U/L (34-104) 02/15/23 03:40 Total Protein 7.4 gm/dl (6.0-8.3) 02/15/23 03:40 Albumin 4.3 gm/dl (3.4-5.0) 02/15/23 03:40 Globulin 3.1 gm/dl (2.5-4.0) 02/15/23 03:40 Albumin/Globulin Ratio 1.4 (0.9-2) 02/15/23 03:40 Lipase 22 U/L (11-82) 02/15/23 03:40 HCG, Qual Negative (Negative) 02/15/23 03:40 Urine Color Yellow 02/15/23 03:40 Urine Appearance Cloudy (Clear) A 02/15/23 03:40 Urine pH 6.5 (4.5-7.5) 02/15/23 03:40 Ur Specific [place] 1.023 (1.000-1.030) 02/15/23 03:40 Urine Protein Negative (Negative) 02/15/23 03:40 Urine Glucose (UA) Negative (Negative) 02/15/23 03:40 Urine Ketones Trace (Negative) H 02/15/23 03:40 Urine Blood 2+ (Negative) H 02/15/23 03:40 Urine Nitrite Negative (Negative) 02/15/23 03:40 Urine Bilirubin Negative (Negative) 02/15/23 03:40 Urine Urobilinogen Negative (Negative) 02/15/23 03:40 Ur Leukocyte Esterase 1+ (Negative) H 02/15/23 03:40 Urine WBC (Auto) 10-30 /hpf (0-5) H 02/15/23 03:40 Urine RBC (Auto) 0-4 /hpf (0-4) 02/15/23 03:40 U Hyaline Cast (Auto) 5-10 /lpf (0-5) H 02/15/23 03:40 U Epithel Cells (Auto) >30 /lpf (0-5) H 02/15/23 03:40 Urine Bacteria (Auto) 2+ (Negative) H 02/15/23 03:[address] abdomen performed - awaiting formal read. Does appear to have distended loops of bowel. No obvious free air. PG Care Time/CCT Total # of Minutes Spent Total Time Spent with Patient: Total time spent is greater than 50% in coordination of care (as documented) at patient's floor/unit and/or counseling patient: Coding Level of Care Code 80505 INT INP/OBS CARE 2/55MIN Diagnoses Small bowel obstruction K56.609
--- NOTE | 2023-02-15 05:23 | CT Scan Report ---
Exam(s): CT ABDOMEN + PELVIS With Contrast IV Amt: 93ml optiray 320 EXAM: CT Abdomen and Pelvis With Intravenous Contrast CLINICAL HISTORY: Reason for exam: mid abd pain, hx SBO. TECHNIQUE: Axial computed tomography images of the abdomen and pelvis with intravenous contrast. CTDI is 27.56 mGy and DLP is 1338.33 mGy-cm. Automated exposure control was utilized for the study. A dose lowering technique was utilized adhering to the principles of ALARA. CONTRAST: Patient received 93ml optiray 320 of IV contrast COMPARISON: No relevant prior studies available. FINDINGS: Lung bases: Unremarkable. No mass. No consolidation. ABDOMEN: Liver: Unremarkable. No mass. Gallbladder and bile ducts: Unremarkable. No calcified stones. No ductal dilation. Pancreas: Unremarkable. No mass. No ductal dilation. Spleen: Unremarkable. No splenomegaly. Adrenals: Unremarkable. No mass. Kidneys and ureters: Unremarkable. No solid mass. No hydronephrosis. Stomach and bowel: There is dilated small bowel seen in the right abdomen measuring up to 3.6 cm in diameter with transition point located in the right abdomen, consistent with small bowel obstruction. The para of the jejunal loops in the left upper abdomen are not dilated. No mucosal thickening. PELVIS: Appendix: No findings to suggest acute appendicitis. Bladder: Unremarkable. No mass. Reproductive: 3.8 cm left ovarian cyst is seen. ABDOMEN and PELVIS: Intraperitoneal space: Unremarkable. No free air. No significant fluid collection. Bones/joints: No acute fracture. No dislocation. Soft tissues: Unremarkable. Vasculature: Unremarkable. No abdominal aortic aneurysm. Lymph nodes: Unremarkable. No enlarged lymph nodes. Tubes, lines and devices: There is intrauterine device seen in situ. IMPRESSION: Partial distal small bowel obstruction with decompressed proximal and distal small bowel loops. The possibility of closed loop obstruction cannot be excluded. Electronically signed by: Neil Eckert MD 02/15/23 05:22 AM
[2023-02-15] MEDS ORDERED: PROMETHAZINE HCL 12.5 MG in SODIUM CHLORIDE 0.9% 50 ML IV STA (06:39)
[2023-02-15] MEDS ORDERED: HYDROmorphone INJ 1 MG/ML SYRINGE IV STA (06:39)
[2023-02-15] MEDS ORDERED: PROMETHAZINE 12.5 MG/50.5 ML NSS IV ONE (06:43)
[2023-02-15] MEDS ORDERED: MoRPHine SULFATE 2 MG/ML CARP IV PRN (09:21)
[2023-02-15 09:51] LABS: Magnesium 2.2 mg/dl (1.7-2.4)
[2023-02-15 09:56] LABS: Phosphorus 3.5 mg/dl (2.5-4.9)
[2023-02-15] MEDS: MoRPHine SULFATE 4 MG/ML 1 ML CARP\\VIAL IV PRN ×2 (10:07→15:08)
[2023-02-15] MEDS: ONDANSETRON INJ 2 MG/ML 2 ML VIAL IV PRN ×2 (10:07→14:31)
[2023-02-15] MEDS: LACTATED RINGER'S 1,000 ML IV SCH ×2 (10:08→19:22)
[2023-02-15] MEDS ORDERED: hydrALAZINE HCL 20 MG/ML VIAL IV PRN (10:21)
[2023-02-15] MEDS ORDERED: hydrALAZINE HCL 20 MG/ML VIAL IV STA (10:21)
--- NOTE | 2023-02-15 13:18 | Surgery Consultation ---
Date of Consultation February 15, 2023 Assessment & Plan (1) Small bowel obstruction: No urgent or emergent indication for surgical intervention. I offered her an NG tube and she declined. Keep her n.p.o. and IV fluids and hopefully this will resolve on its own. We will continue to follow along closely. History of Present Illness Attending Physician: Frances Madison DO History of Present Illness 47-year-old female with a past history of cholecystectomy complicated by bile duct injury requiring a second operation. She also has a history of an appendectomy. She states that she gets small bowel obstruction about once every year. This feels exactly like her other ones. Currently not having pain although she did throw up a little bit ago. Allergies Allergy/AdvReac Type Severity Reaction Status Date / Time Penicillins Allergy Severe AMOXICILLIN-ITCHY Verified 02/26/22 07:13 HIVES amoxicillin AdvReac Unknown Hives Verified 03/27/22 11:53 cisapride [From Propulsid] AdvReac Unknown N/V Verified 03/27/22 11:53 hydrochlorothiazide AdvReac Unknown vertigo Unverified 03/27/22 11:53 [From Maxzide] metoclopramide [From Reglan] AdvReac Unknown N/V Verified 03/27/22 11:53 omeprazole [From Prilosec] AdvReac Unknown N/V Unverified 03/27/22 11:53 triamterene [From Maxzide] AdvReac Unknown vertigo Unverified 03/27/22 11:53 lisinopril AdvReac Unknown dry cough Uncoded 03/27/22 11:53 Home Medications Medication Instructions Recorded Confirmed Type No Known Home Medications 01/26/19 02/15/23 History Patient History Medical History Hernia, internal Hypokalemia Kidney cysts Kidney stones Leukocytosis Pulmonary embolism SBO (small bowel obstruction) Small bowel obstruction Surgical History History of cholecystectomy Hx of appendectomy Status post exploratory laparotomy History of common bile duct injury during lap kinga required unknown repair with ex lap Family History Other Family history non-contributory Social History Smoking Status: Never smoker Hx Alcohol Use: No Hx Substance Use: No Preferred Language: Sudanese Communication Ability: Effective Career Development Consultant Required: No Beliefs That Will Affect Care: None Current Living Situation: Spouse Current Living Situation Comment: Home with Other Information That Helps Us Care for You: No Feels Safe at Home: Yes Safety Concerns: Feels Safe At This Time Assistive Devices: None Review of Systems Review of Systems: All systems reviewed & are unremarkable except as noted in HPI & below Physical Exam Constitutional: WD/WN, vitals as above no acute distress and not ill appearing Eyes: PERRL, conjunctivae normal, anicteric sclerae EOM intact bilaterally ENMT: external ear and nose normal, oropharynx normal Ears: no hearing i mpairment Neck: trachea midline, no thyromegaly Respiratory: normal respiratory effort; no respiratory distress and does not use accessory muscles Cardiovascular: Rate/Rhythm: regular rate and regular rhythm Gastrointestinal (Abdomen): Soft. Nondistended. Nontender Skin: no rashes, warm and dry Psychiatric: Orientation: alert, oriented x 3 and cooperative Results & Data Vital Signs (Past 12 Hours) Vital Signs Temp Pulse Pulse Pulse Resp BP BP 02/15/23 11:38 36.4 C L 79 20 148/83 H 02/15/23 11:00 162/96 H 02/15/23 10:25 02/15/23 10:19 84 18 194/116 H 02/15/23 07:06 82 18 151/110 H 02/15/23 04:14 78 17 157/90 H 02/15/23 03:32 02/15/23 03:55 02/15/23 03:25 36.6 C 74 18 179/88 H Pulse Ox O2 Del Method 02/15/23 11:38 97 Room Air 02/15/23 11:00 02/15/23 10:25 Room Air 02/15/23 10:19 95 Room Air 02/15/23 07:06 92 Room Air 02/15/23 04:14 98 02/15/23 03:32 Room Air 02/15/23 03:55 99 Room Air 02/15/23 03:25 100 Room Air PG Care Time/CCT Total # of Minutes Spent Total Time Spent with Patient: Total time spent is greater than 50% in coordination of care (as documented) at patient's floor/unit and/or counseling patient: Coding Level of Care Code 44585 IN/OBS CONSULT LVL 3,45M Diagnoses Small bowel obstruction K56.609
--- NOTE | 2023-02-15 13:59 | Hospitalist Progress Note ---
Date of Service February 15, 2023 Assessment & Plan (1) Small bowel obstruction: Plan: N.p.o. with IV fluids. Antiemetics IV as needed. Appreciate surgery consultation and recommendations. Conservative management at this point. (2) Hypertension: Plan: Intravenous hydralazine as needed elevated systolic or diastolic pressures Plan Hopeful discharge to home soon Admission and Anticipated Discharge Date Admission Date: February 15, 2023 Subjective Alert and oriented. No new problems. As needed IV hydralazine ordered for elevated blood pressure. She remains n.p.o. on IV fluids. Surgery consultation appreciated. Conservative management anticipated. Review of Systems Review of Systems: Constitutional-no fever or chills ENT-no blurred vision, no double vision, no epistaxis, no sore throat Respiratory-no cough, no wheezing, no shortness of breath Cardiac-no palpitations, no chest pain, no syncope GI-some mild nausea. No vomiting. No melena, no hematochezia -no urinary retention, no urinary incontinence, no dysuria, no hematuria Musculoskeletal-no joint pain, no muscle tenderness Skin-no bruising, no rashes, no pruritus Neuro-no isolated weakness, no paresthesia, no weakness Psych-no depression, no anxiety Physical Exam Physical Exam: General-alert and oriented x3, no fevers, no chills HEENT-head atraumatic and normocephalic, pupils equal and reactive to light, extraocular muscles intact Neck-no lymphadenopathy or thyromegaly, trachea midline Chest-clear to auscultation percussion. No rales wheezing or rhonchi Cardiac-regular rate and rhythm, normal S1 and S2 Abdomen-normal bowel sounds, nondistended, nontender no hepatosplenomegaly Extremities-no cyanosis, clubbing, or edema Neuro-cranial nerves II through XII intact, motor and sensory function within normal limits, strength symmetrical , no focal deficits Psych-normal affect, normal mood Results & Data Results & Data Vital Signs (Past 12 Hours) Vital Signs Temp Pulse Pulse Pulse Resp BP BP 02/15/23 11:38 36.4 C L 79 20 148/83 H 02/15/23 11:00 162/96 H 02/15/23 10:25 02/15/23 10:19 84 18 194/116 H 02/15/23 07:06 82 18 151/110 H 02/15/23 04:14 78 17 157/90 H 02/15/23 03:32 02/15/23 03:55 02/15/23 03:25 36.6 C 74 18 179/88 H Pulse Ox O2 Del Method 02/15/23 11:38 97 Room Air 02/15/23 11:00 02/15/23 10:25 Room Air 02/15/23 10:19 95 Room Air 02/15/23 07:06 92 Room Air 02/15/23 04:14 98 02/15/23 03:32 Room Air 02/15/23 03:55 99 Room Air 02/15/23 03:25 100 Room Air Laboratory Results 02/15/23 03:40 02/15/23 03:40 PG Care Time/CCT Total # of Minutes Spent Total Time Spent with Patient: Total time spent is greater than 50% in coordination of care (as documented) at patient's floor/unit and/or counseling patient: Coding Level of Care Code 38480 SUB INP/OBS CARE 3/50MIN Diagnoses Small bowel obstruction K56.609 Hypertension I10
[2023-02-15] MEDS: FAMOTIDINE 20 MG in SYRINGE 3 ML IV SCH (14:31)
[2023-02-15] MEDS ORDERED: ONDANSETRON INJ 2 MG/ML 2 ML VIAL IV PRN (19:35)
[2023-02-15] MEDS ORDERED: ONDANSETRON INJ 2 MG/ML 2 ML VIAL ONE (19:53)
[2023-02-16] MEDS: FAMOTIDINE 20 MG in SYRINGE 3 ML IV SCH ×2 (01:40→15:21)
[2023-02-16] MEDS ORDERED: ACETAMINOPHEN 1,000 MG/100 ML VIAL IV STA (06:16)
[2023-02-16 06:35] LABS: Hematocrit (blood only) 38.2 % (37.0-47.0); Hemoglobin 13.3 g/dl (12.0-16.0); Mean Corpuscular Hemoglobin 30.4 pg (25.0-34.0); Mean Corpuscular Hgb Conc 34.8 g/dL (32.0-36.0); Mean Corpuscular Volume 87.4 fL (80.0-100.0); Mean Platelet Volume 10.5 fL (9.4-12.4); Platelet Count 257 K/uL (130-400); RDW Coefficient of Variation 13.5 % (11.5-14.5); RDW Standard Deviation 43.3 fL (36.4-46.3); Red Blood Count 4.37 M/uL (4.20-5.40); White Blood Count 12.94 K/ul (4.8-10.8)
[2023-02-16 06:44] LABS: Calcium 8.5 mg/dl (8.6-10.3); Creatinine Clr Calc Pharmacy 130.5 ml/min; Est GFR (African American) 131.2 ml/min; Est GFR (Non-African American) 113.2 ml/min; Potassium 3.4 mmol/L (3.5-5.1)
[2023-02-16] MEDS: ENOXAPARIN INJ 40 MG/0.4 ML SYR SQ SCH (07:41)
--- NOTE | 2023-02-16 09:29 | Surgery Progress Note ---
Date of Service February 16, 2023 Assessment & Plan (1) Small bowel obstruction: Plan: Patient here with concern for SBO. SBO likely related to adhesions from prior surgeries WBC 12 (9), otherwise vitals are stable She is feeling improved from yesterday, no n/v. Pain better. Awaiting return of bowel function May have some sips/chips Continue to encourage ambulation (2) Peritoneal adhesions: Admission and Anticipated Discharge Date Admission Date: February 15, 2023 Subjective Patient reports feeling much better than yesterday. Currently denies any pain or nausea. No flatus/BMs yet. Has been ambulating the halls. Physical Exam Physical Exam: awake/alert, no distress Gastrointestinal (Abdomen): Inspection/Auscultation: abdomen not distended Percussion/Palpation: abdomen soft; abdomen nontender Results & Data Vital Signs (Past 12 Hours) Vital Signs Temp Pulse Resp BP Pulse Ox O2 Del Method 02/16/23 07:44 36.9 C 76 18 129/79 97 Room Air 02/15/23 23:26 37.2 C 87 125/80 95 Room Air PG Care Time/CCT Total # of Minutes Spent Total Time Spent with Patient: Total time spent is greater than 50% in coordination of care (as documented) at patient's floor/unit and/or counseling patient: Coding Level of Care Code 38206 SUB INP/OBS CARE 07/30MIN Diagnoses Small bowel obstruction K56.609 Peritoneal adhesions K66.0
[2023-02-16] MEDS: POTASSIUM CHLORIDE 20 MEQ in D5W AND LACTATED RINGERS 1,000 ML IV SCH ×2 (09:39→21:21)
[2023-02-16] MEDS ORDERED: KETOROLAC 30 MG/ML VIAL IV PRN (15:17)
[2023-02-16] MEDS ORDERED: ACETAMINOPHEN 500 MG TAB PO PRN (15:17)
--- NOTE | 2023-02-16 15:19 | Hospitalist Progress Note ---
Date of Service February 16, 2023 Assessment & Plan (1) Small bowel obstruction: Plan: likely on basis of adhesions. IMPROVED. passing flatus. no further pain/nausea/emesis. distension also improved. sips/chips ok per surgery. cont IVF. replace low K. re-eval tomorrow. defer diet advancement to gen surg. (2) Hypertension: Plan: BPs today acceptable without therapy. Plan DVT proph - lovenox Low potassium - add KCL to fluids FEN - allow sips/chips; repeat labs am Asymptomatic bacteriuria - lactobacillus grew on urine cx - no Rx needed Admission and Anticipated Discharge Date Admission Date: February 15, 2023 Subjective passed flatus 3x's since the am no BM, however no bloating no nausea/emesis in 24+ hours no abd pain feels much better today asking for clears Review of Systems Review of Systems: gen - no fevers cv - no chest pain pulm - no dyspnea Physical Exam Physical Exam: gen - NAD, looks good mouth - MMM neck - no JVD heart - RRR, s1 s2, no murmur lungs - CTA b/l abd - mildly decreased bowel sounds; no distension; BS+, NT ext - no edema, pulses 2+ b/l psych - a/o x 3 Results & Data Results & Data Vital Signs (Past 12 Hours) Vital Signs Temp Pulse Resp BP Pulse Ox O2 Del Method 02/16/23 14:20 36.9 C 80 18 139/89 96 Room Air 02/16/23 07:44 36.9 C 76 18 129/79 97 Room Air Laboratory Results Laboratory Results - last 24 hr 02/16/23 02/16/23 05:33 05:33 WBC 12.94 H RBC 4.37 Hgb 13.3 Hct 38.2 MCV 87.4 MCH 30.4 MCHC 34.8 RDW Std Deviation 43.3 RDW Coeff of Lissette 13.5 Plt Count 257 MPV 10.5 Sodium 136 Potassium 3.4 L Chloride 104 Carbon Dioxide 26 Anion Gap 6 BUN 7 Creatinine 0.54 L Est Cr Clr Drug Dosing 130.5 Est GFR ( Amer) 131.2 Est GFR (Non-Af Amer) 113.2 BUN/Creatinine Ratio 13.0 Glucose 90 Calcium 8.5 L PG Care Time/CCT Total # of Minutes Spent Total Time Spent with Patient: Total time spent is greater than 50% in coordination of care (as documented) at patient's floor/unit and/or counseling patient: Coding Level of Care Code 62257 SUB INP/OBS CARE Diagnoses Small bowel obstruction K56.609 Hypertension I10
[2023-02-17] MEDS: FAMOTIDINE 20 MG in SYRINGE 3 ML IV SCH (01:57)
[2023-02-17 06:15] LABS: Hematocrit (blood only) 37.2 % (37.0-47.0); Hemoglobin 12.6 g/dl (12.0-16.0); Mean Corpuscular Hemoglobin 29.8 pg (25.0-34.0); Mean Corpuscular Hgb Conc 33.9 g/dL (32.0-36.0); Mean Corpuscular Volume 87.9 fL (80.0-100.0); Mean Platelet Volume 10.1 fL (9.4-12.4); Platelet Count 208 K/uL (130-400); RDW Coefficient of Variation 13.7 % (11.5-14.5); RDW Standard Deviation 43.8 fL (36.4-46.3); Red Blood Count 4.23 M/uL (4.20-5.40)
[2023-02-17 06:38] LABS: BUN Creatinine Ratio 12.3 (10-20); Calcium 8.3 mg/dl (8.6-10.3); Creatinine Clr Calc Pharmacy 123.6 ml/min; Est GFR (African American) 128.9 ml/min; Est GFR (Non-African American) 111.2 ml/min; Potassium 3.6 mmol/L (3.5-5.1)
[2023-02-17] MEDS: POTASSIUM CHLORIDE 20 MEQ in D5W AND LACTATED RINGERS 1,000 ML IV SCH (06:44)
[2023-02-17] MEDS: ENOXAPARIN INJ 40 MG/0.4 ML SYR SQ SCH (07:39)
--- NOTE | 2023-02-17 07:52 | Surgery Progress Note ---
Date of Service February 17, 2023 Assessment & Plan (1) Small bowel obstruction: Plan: Patient here with resolving SBO. SBO likely secondary to adhesions from prior surgeries She is doing well, passing flatus and had a BM both last night and this AM. She is tolerating clears without nausea/vomiting Abdomen is soft and non tender Will continue to advance diet as tolerates and possible home later today if she continues to do well Admission and Anticipated Discharge Date Admission Date: February 15, 2023 Subjective Patient is doing well. Reports her pain is much improved. She is passing flatus and has had 2 BMs thus far, along with flatus. She is tolerating liquids without nausea/vomiting. Physical Exam Physical Exam: awake/alert, no distress Respiratory: normal respiratory effort Gastrointestinal (Abdomen): Inspection/Auscultation: abdomen not distended Percussion/Palpation: abdomen soft; abdomen nontender Results & Data Vital Signs (Past 12 Hours) Vital Signs Temp Pulse Resp BP Pulse Ox O2 Del Method 02/16/23 21:13 37.2 C 60 18 136/86 98 Room Air PG Care Time/CCT Total # of Minutes Spent Total Time Spent with Patient: Total time spent is greater than 50% in coordination of care (as documented) at patient's floor/unit and/or counseling patient: Coding Level of Care Code 69134 SUB INP/OBS CARE 1/25MIN Diagnoses Small bowel obstruction K56.609
--- NOTE | 2023-02-17 12:45 | Discharge Summary ---
Date of Service February 17, 2023 Admission HPI Per Admitting Provider Shira Schuster is a 47yo female with history of cholecystectomy, appendectomy and exploratory laparotomy presenting with abdominal pain, concerned for SBO. Patient reports that every year for the past 4-5 years she develops a bowel obstruction in late summer. Today she developed midline abdominal pain around 01:00 with associated nausea and multiple episodes of non-bloody emesis. She had two episodes of non-bloody diarrhea. Has not been passing gas since. No abdominal distention. No additional complaints, specifically no fever, chills, chest pain, cough, SOB. In the ER she is afebrile, HD stable, NAD Discharge Exam gen - NAD, looks good mouth - MMM neck - no JVD heart - RRR, s1 s2, no murmur lungs - CTA b/l abd - mildly decreased bowel sounds; no distension; BS+, NT ext - no edema, pulses 2+ b/l psych - a/o x 3 Discharge Data Allergies Allergy/AdvReac Type Severity Reaction Status Date / Time Penicillins Allergy Severe AMOXICILLIN-ITCHY Verified 02/26/22 07:13 HIVES amoxicillin AdvReac Unknown Hives Verified 03/27/22 11:53 cisapride [From Propulsid] AdvReac Unknown N/V Verified 03/27/22 11:53 hydrochlorothiazide AdvReac Unknown vertigo Unverified 03/27/22 11:53 [From Maxzide] metoclopramide [From Reglan] AdvReac Unknown N/V Verified 03/27/22 11:53 omeprazole [From Prilosec] AdvReac Unknown N/V Unverified 03/27/22 11:53 triamterene [From Maxzide] AdvReac Unknown vertigo Unverified 03/27/22 11:53 lisinopril AdvReac Unknown dry cough Uncoded 03/27/22 11:53 Consultations 02/15/23 04:32 ED Decision to Admit Stat 02/15/23 09:21 Consult General Surgery Routine Ordered Studies 02/15/23 03:32 CT abd pelvis IV con only Stat Hospital Course (1) Small bowel obstruction: likely on basis of adhesions. IMPROVED. passing flatus. no further pain/nausea/emesis. distension also improved. sips/chips ok per surgery. cont IVF. replace low K. re-eval tomorrow. defer diet advancement to gen surg. (2) Hypertension: BPs today acceptable without therapy. Plan DVT proph - lovenox Low potassium - add KCL to fluids FEN - allow sips/chips; repeat labs am Asymptomatic bacteriuria - lactobacillus grew on urine cx - no Rx needed Discharge Plan Discharge Items Patient Disposition: Home - Self-Care Reason For Visit: SBO Discharge Diagnosis: 1. SBO (small bowel obstruction) - resolved 2. left-sided ovarian cyst 3.8cm in size Condition on Discharge: Good Activity: Resume your previous activity Non-emergency contact: Primary Care Provider Call non-emergency contact if: you have any medication questions, your symptoms worsen, your pain is not controlled, your pain is worsening, your pain is unusual for you, your pain is concerning for you and you have a fever Follow-up/Referrals: Elroy Borja [Primary Care Provider] - (7-10 days ) Diet: Low Fiber Addtl Attending Provider Instructions: Mrs Schuster, You were hospitalized for a small bowel obstruction/blockage. Most "SBOs" are caused by scar tissue within the abdominal cavity. We call the scar tissue "adhesions." You improved with customary measures including diet restriction, IV fluids, and time. General surgery was heavily involved in your care and they were pleased with your progress. At time of discharge you are passing gas & stool and you are tolerating a low- fiber diet. Incidentally, on your CT scan of the abdomen, the radiologist noted a small ovarian cyst on the left ovary. Recommendations - 1. low fiber diet for 10 days 2. plenty of good hydration/liquids over the next several days as you continue to recover 3. please talk to your family doctor about the left-sided ovarian cyst; follow- up with your family doctor in 7-10 days in the office Return to [facility] if - * you are having fevers over 100 degrees * you develop recurrent abdominal bloating/distension or pain * you develop recurrent vomiting * you have any symptoms of recurrent bowel blockage * any other concerns It was our pleasure to care for you! -Dr Miller Pending Studies at Discharge: No Stand-Alone Forms: My [facility], Smoking Cessation Medications and DC Order Prescriptions: No Action No Known Home Medications Discharge Orders: Discharge Order (Routine); Ordered 02/17/23 Ordered By: Vito Goodson/Other Patient Handouts: Small Bowel Obstruction, Low-Fiber Diet Admission Data Admit Date/Time: 02/15/23 05:00 Attending Provider: Vito Miller Admit Provider: Frances Madison Primary Care Provider: Elroy Borja Other Providers: Frances Madison ; Chris Pritchett Coding Diagnoses Small bowel obstruction K56.609 Hypertension I10
== END 2023-02-17 13:41 | disposition home or self-care (01) | DRG 390 ==
LOC: ED 03:20 → EDINP 05:00 → SUATTDRO 05:00 → INTOOBSV 05:00 → 3E 09:22